=== PATIENT | female | born 1940 | race Caucasian/White ===

== ENCOUNTER → 2019-11-14 12:23 | Outpatient (CLI) | payer MEDICARE, BC, SELFPAY ==
--- NOTE | ~2019-11-14 | XR_ITS ---
XR pelvis 1-2V DATE: 11/14/2019 12:38 INDICATION: Left hip pain for one month. No known injury. TECHNIQUE: AP pelvis views with neutral and frog-lateral position of the hips COMPARISON: 07/07/2018 CT abdomen pelvis FINDINGS: No pelvic fracture or bone destruction. The pubic symphysis and sacroiliac joints are intac t. There are degenerative changes of the lumbar and lumbosacral spine. No hip fracture or dislocation, avascular necrosis or bone destruction is evident. There is extensive calcification of the abdominal aorta, iliac and femoral arteries. Multiple calcifications overlying the pelvis which are demonstrated to be in the subcutaneous tissues posterior to the distal sacrum upon review of the 07/07/2018 CT abdomen pelvis examination. IMPRESSION: No pelvic or hip fracture Reviewed, dictated and finalized at location B. ST'S REPRESENTATIVE IMPRESSION: No pelvic or hip fracture
== END ==
PROVIDERS: PCP Family Medicine; Visit Provider Family Medicine
DX: M25.552 Pain in left hip (principal)
CPT/HCPCS: 72170

== ENCOUNTER 2020-03-31 00:10 | Outpatient (CLI) | payer MEDICARE, BC, SELFPAY ==
[2020-03-31 17:13] LABS: SARS-CoV-2 RNA PCR Negative
== END 2020-03-31 00:11 | disposition home or self-care (01) ==
LOC: ANHCOVIDDT 00:11
PROVIDERS: PCP Family Medicine; Visit Provider Internal Medicine Gastroenterology
DX: Z01.818 Encounter for other preprocedural examination (principal); Z11.59 Encounter for screening for other viral diseases
CPT/HCPCS: 87635; C9803; U0003

== ENCOUNTER 2020-04-02 01:31 | Day surgery (SDC) | payer MEDICARE, BC, SELFPAY ==
[2020-03-25 14:14] VITALS: BMI 23.3
[2020-04-02 09:04] VITALS: BP 151/52; PULSE 67; RESP 18; TEMP 37.4; O2SAT 98
[2020-04-02] MEDS: LACTATED RINGERS 1,000 ML 150 ML IV CONT (09:25)
[2020-04-02 09:29] LABS: Glucose Point of Care 139 (65-105)
--- NOTE | 2020-04-02 09:31 | WPDANESEPPF ---
Anes - Initial Pre Proc Eval Procedure: Operation Date: 04/02/20 10:00 Proposed Procedures p Colonoscopy - Ruiz Raya MD Date/Time: 04/02/20 09:31 Surgeon: Ruiz Raya MD Pre Op Diagnosis: anemia Patient Data Age: 79 Gender: F Height: 1.68 m Weight: 64.5 kg Last Vital Signs Temp 37.4 C 04/02/20 09:04 Pulse 67 04/02/20 09:04 Resp 18 04/02/20 09:04 BP 151/52 H 04/02/20 09:04 Pulse Ox 98 04/02/20 09:04 Allergies Allergy/AdvReac Type Severity Reaction Status Date / Time No Known Allergies Allergy Unknown Verified 04/02/20 09:02 Home Medications Medication Instructions Recorded Confirmed Type aspirin 81 mg tablet,delayed 81 mg PO DAILY 09/11/19 03/25/20 History release dexamethasone 0.1 % eye 1 drop EACH EYE Q4H 09/11/19 03/25/20 History drops,suspension insulin detemir U-100 100 unit/mL 10 unit SUB-Q DAILY ml 09/11/19 03/25/20 History (3 mL) subcutaneous pen latanoprost 0.005 % eye drops 1 drop EACH EYE DAILY 09/11/19 03/25/20 History multivitamin 1 tablet PO DAILY 09/11/19 03/25/20 History losartan 25 mg tablet 25 mg PO DAILY #30 tablet 10/18/19 03/25/20 Rx pen needle, diabetic 32 gauge x #100 each 10/22/19 10/22/19 Rx 1/5 naproxen 500 mg tablet 500 mg PO BID PRN #60 tablet 11/12/19 03/25/20 Rx cholecalciferol (vitamin D3) 1,250 1,250 mcg PO DAILY 12/11/19 03/25/20 History mcg (50,000 unit) capsule omega 3-dha 120 mg-epa 180 mg-fish cap PO 12/11/19 History oil 600 mg capsule omeprazole 20 mg capsule,delayed 20 mg PO DAILY 12/11/19 03/25/20 History release atorvastatin 10 mg tablet 10 mg PO DAILY #30 tablet 01/21/20 03/25/20 Rx escitalopram oxalate 10 mg tablet 10 mg PO DAILY #30 tablet 04/14/20 06/16/20 Rx sitagliptin 50 mg-metformin 1,000 1 tablet PO BID #180 tablet 03/11/20 03/25/20 Rx mg tablet calcium carbonate-vitamin D3 1 tablet PO DAILY 03/25/20 03/25/20 History [Caltrate 600 plus D] Laboratory Tests 04/02/20 09:24 POC Capillary Glucose 139 mg/dl H mg/dl (65-105) Patient hx anesthesia problems: none Family hx anesthesia problems: none [facility] Past Medical History Medical History (Updated 04/01/20 @ 09:11 by Shailesh Dai DO) Glaucoma History of uterine cancer Hypertension Malignant neoplasm of uterus, part unspecified Mixed hyperlipidemia Osteoarthritis Osteoporosis Type 2 diabetes mellitus without complications Surgical History Surgical History (Updated 04/01/20 @ 09:11 by Shailesh Dai DO) History of corneal transplant History of gynecologic surgery History of hysterectomy Social History Social History Smoking status: Never smoker Alcohol intake: current Additional living arrangements comments: - Gurpreet Turk Jostin Stephanie Final PreProcedure Day of Procedure 04/02/20 09:31 Patient weight: normal Heart: regular rate and rhythm Lungs: clear to auscultation and normal air movement Airway: Mallampati scale class II Neurological: alert and oriented Last oral intake: >/= 8 hours ASA classification: III Emergent: no Anesthetic plan: proceed Anesthesia type and monitoring: general GIVS and standard monitoring Informed Consent: The patient's anesthetic plan and its attendant risks and benefits were discussed with the patient/family/POA. Questions were solicited and answers provided to the satisfaction of the patient/family/POA.
--- NOTE | 2020-04-02 09:33 | WPDGICN ---
Assessment and Plan Assessment and plan (1) Anemia: Code(s): D64.9 - Anemia, unspecified Status: Acute Assessment and Plan: Mild anemia noted with sick recent decline in hemoglobin plan is for colonoscopy to assess for possible GI blood loss. Patient does report diarrhea that is blood tinged raising the question of intestinal bleeding. (2) Diarrhea: Code(s): R19.7 - Diarrhea, unspecified Status: Acute Assessment and Plan: Patient has chronic diarrhea attributed to radiation therapy after resection of uterine cancer. Plan is for high-fiber diet. This will be assessed with colonoscopy today. (3) History of uterine cancer: Code(s): Z85.42 - Personal history of malignant neoplasm of other parts of uterus Status: Acute GI Consult Note Consult date/time: 04/02/20 09:33 HPI: Didi Good is a 79 year old female Seen in evaluation at the request of Dr.Gina López. patient is found to have a mild decline in hemoglobin over recent months. For this reason she was referred for colonoscopy. Patient denies any obvious blood in her stools. Her weight appetite bowel movements are normal unchanged. Patient has a history of colon polyps most recently 10 years ago. Her last colonoscopy in 2015 was fairly unremarkable. Patient is notice chronic diarrhea. Diarrhea started after history of uterine cancer. 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 Since that time she has had ongoing diarrhea and loose stools. She states on occasionally it may low appear red tinged. She is concerned about possible blood in her stools. Patient's family history is noncontributory. There is no family history of colon or rectal disease. Review of Systems Review of Systems: All systems reviewed & are unremarkable except as noted in HPI and below PMFSH Past Medical History Medical History Glaucoma History of uterine cancer Hypertension Malignant neoplasm of uterus, part unspecified Mixed hyperlipidemia Osteoarthritis Osteoporosis Type 2 diabetes mellitus without complications Surgical History Surgical History History of corneal transplant History of gynecologic surgery History of hysterectomy Family History Family History Mother Diabetes mellitus, Onset Age: 69 Family history of glaucoma, Onset Age: 69 Hypertension, Onset Age: 69 Family history of elevated blood lipids, Onset Age: 69 Family history of cardiovascular disease, Onset Age: 69 Acute myocardial infarction, Onset Age: 69 Family history of coronary artery disease, Onset Age: 69 Family history of malignant neoplasm of breast in first degree relative Father Depression, Onset Age: 76 Family history of elevated blood lipids, Onset Age: 76 Family history of cardiovascular disease, Onset Age: 76 Acute myocardial infarction, Onset Age: 76 Family history of coronary artery disease, Onset Age: 76 Grandparent Hypertension Family history of cardiovascular disease Cerebrovascular accident Social History Social History Smoking status: Never smoker Alcohol intake: current Additional living arrangements comments: - Gurpreet Sanchez Home Medications and Allergies Home Medications Medication Instructions Recorded Confirmed Type aspirin 81 mg tablet,delayed 81 mg PO DAILY 09/11/19 03/25/20 History release dexamethasone 0.1 % eye 1 drop EACH EYE Q4H 09/11/19 03/25/20 History drops,suspension insulin detemir U-100 100 unit/mL 10 unit SUB-Q DAILY ml 09/11/19 03/25/20 History (3 mL) subcutaneous pen latanoprost 0.005 % eye drops 1 drop EACH EYE DAILY 09/11/19 03/25/20 History multivitamin 1 tablet PO DAILY 09/11/19 03/25/20 Hi
--- NOTE | 2020-04-02 10:14 | SUR.OPER ---
PTS SPOUSE, MARII, NOTIFIED OF PTS STATUS
[2020-04-02 10:31] VITALS: BP 114/60; PULSE 70; RESP 20; O2SAT 100
[2020-04-02 10:41] VITALS: BP 129/63; PULSE 67; RESP 20; O2SAT 100
[2020-04-02 10:48] LABS: Glucose Point of Care 119 (65-105)
[2020-04-02 10:51] VITALS: BP 178/82; PULSE 67; RESP 20; O2SAT 100
== END 2020-04-02 11:14 | disposition home or self-care (01) ==
PROVIDERS: PCP Family Medicine; Visit Provider Internal Medicine Gastroenterology
PROC: 0DJD8ZZ Inspection of Lower Intestinal Tract, Via Natural or Artificial Opening Endoscopic (ICD-10-PCS; CPT 45378; principal; 2020-04-02 10:00)
DX: D64.9 Anemia, unspecified (principal); R19.7 Diarrhea, unspecified; K64.8 Other hemorrhoids; Z85.42 Personal history of malignant neoplasm of other parts of uterus; I10 Essential (primary) hypertension; E78.2 Mixed hyperlipidemia; E11.9 Type 2 diabetes mellitus without complications; M81.0 Age-related osteoporosis without current pathological fracture; H40.9 Unspecified glaucoma; Z79.82 Long term (current) use of aspirin; Z79.4 Long term (current) use of insulin
CPT/HCPCS: 45378; J2704; J7120

== ENCOUNTER 2020-10-04 01:00 | Outpatient (CLI) | payer MEDICARE, BC, SELFPAY ==
[2020-10-04 19:31] LABS: SARS-CoV-2 RNA PCR Negative
== END 2020-10-04 01:01 | disposition home or self-care (01) ==
LOC: ANHCOVIDDT 01:00
PROVIDERS: PCP Family Medicine; Visit Provider Plastic Surgery
DX: Z01.818 Encounter for other preprocedural examination (principal); Z20.828 Contact with and (suspected) exposure to other viral communicable diseases
CPT/HCPCS: 87635; C9803; U0003

== ENCOUNTER 2020-10-08 00:29 | Day surgery (SDC) | payer MEDICARE, BC, SELFPAY ==
[2020-09-30 10:06] VITALS: BMI 22.6
[2020-10-08] VITALS (14 sets, daily range): BP systolic 146–184; BP diastolic 50–96; PULSE 61–71; RESP 16–20; TEMP 36.8; O2SAT 96–100; BMI 22.4
--- NOTE | 2020-10-08 09:27 | WPDHPUPDATE1 ---
History and Physical Update Update Date/Time: 10/08/20 09:27 History and Physical has been reviewed, including an updated exam of the patient. There are NO changes in the patient's condition. Risks, benefits, and alternatives have been discussed and questions answered. Patient agrees to proceed with procedure.
[2020-10-08 11:32] LABS: Glucose Point of Care 170 (65-105)
[2020-10-08] MEDS: LIDO 1%/EPINEPHRINE 1:100,000 50 ML VIAL INFILTRATE (13:11)
--- NOTE | 2020-10-08 13:29 | SUR.OPER ---
specimen given to janina in pathology by ninoska vazquez at [id number]
--- NOTE | 2020-10-08 13:57 | SUR.OPER ---
2nd specimen given to janina in pathology by or pct taylor at [id number].
[2020-10-08] MEDS: BACITRACIN OINTMENT 15 GM TUBE 1 APPLIC TOPICAL (14:29)
--- NOTE | 2020-10-08 14:46 | PM.OP ---
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 Anesthesia: local Surgeon: Walker Yanes MD Estimated blood loss (mL): 2 Drains: No Packing: No Pathology: yes Complications: No immediate complications Condition: stable Disposition: same day
--- NOTE | 2020-10-08 14:48 | PM.PROC ---
Procedure Note - Detailed Date of procedure: 10/08/20 Pre-op diagnosis: Basal Cell Carcinoma Right Upper Scaphoid Fossa Post-op diagnosis: same Procedure performed: 2 cm excision of basal cell carcinoma of the right scaphoid fossa with frozen section x2 and full-thickness skin graft 2 sq cm Description of procedure: The site on the right scaphoid fossa was compared to her preop diagram and patient's recollection. We identified this site and marked it. She was transported to the operating room and placed supine on the operating table. She was made comfortable. The right side of her face, ear and neck were prepped and draped in usual fashion. The site was again carefully examined under loupe magnification and marked for excision. This area was infiltrated 1% lidocaine with epinephrine. The full-thickness skin ellipse was taken from the helix and the peripheral scaphoid fossa. It was marked at the most superior and with a suture for 12:00 o'clock and sent to pathology. Pathologist reported there was positive margin at the 6:00 a.m. and. A 2nd piece of tissue was sent again marked at the new 6:00 a.m. margin along with a diagram. Pathologist reported that margins were free. The skin graft was harvested from the right upper neck. It was carefully defatted and tailored and inset with 5 0 nylon sutures. Quilting suture placed down the middle as well. The donor site was closed with intradermal 4-0 Vicryl and glue at the surface. She is discharged from the operating room stable condition she is being discharged with a prescription for cephalexin 500 mg 15. And tramadol 50 mg 8. Surgeon: Walker Yanes MD
== END 2020-10-08 15:15 | disposition home or self-care (01) ==
PROVIDERS: PCP Family Medicine; Visit Provider Plastic Surgery
PROC: (CPT 11642; principal; 2020-10-08 12:00)
DX: C44.212 Basal cell carcinoma of skin of right ear and external auricular canal (principal)
CPT/HCPCS: 11642; 15260; 88305; 88331; A9270

== ENCOUNTER 2021-05-05 11:26 | Outpatient (CLI) | payer MEDICARE, BC, SELFPAY ==
--- NOTE | ~2021-05-05 | XR_ITS ---
EXAMINATION:XR cervical spine 4-5V DATE: 05/05/2021 11:49 INDICATION: Neck pain TECHNIQUE: AP, lateral, lateral swimmers and odontoid views of the cervical spine are provided. COMPARISON: None FINDINGS: There are 2 mm of anterolisthesis of C4 on C5, 3 mm of anterolisthesis of C5 on C6, and 3 m m of anterolisthesis of C6 on C7. The odontoid is intact. No fracture is identified. The vertebral cheryl dy heights are maintained. There is severe loss of intervertebral disc space height at C5-6. Small de generative osteophytes project from the anterior endplates of multiple vertebral bodies. There is sev ere multilevel facet and uncovertebral joint osteoarthritis throughout the cervical spine. Prevertebr al soft tissues are normal. IMPRESSION: 1. Severe cervical spondylosis. Reviewed, dictated and finalized at location A.
--- NOTE | ~2021-05-05 | XR_ITS ---
EXAMINATION: XR shoulder LT min 2V INDICATION: Chronic left shoulder pain TECHNIQUE: Four views of the left shoulder are submitted. COMPARISON: None FINDINGS: Normal alignment. No fracture. There is moderate osteoarthritis of the acromioclavicular an d glenohumeral joints. Soft tissues are unremarkable. IMPRESSION: 1. Osteoarthritis without acute osseous abnormality. Reviewed, dictated and finalized at location A.
--- NOTE | 2021-05-05 11:55 | ECG_ITS ---
Measurements Intervals [place] Rate: 65 P: 63 CA: 169 QRS: -48 QRSD: 126 T: 80 QT: 423 QTc: 440 Interpretive Statements SINUS RHYTHM LEFT ANTERIOR FASCICULAR BLOCK BORDERLINE ST-T WAVE ABNORMALITY- HIGH LATERAL LEADS BASELINE WANDER- I, III, AVL, AVF ABNORMAL ECG Electronically Signed On 05-05-2021 12:55:32 CDT by German Butt D.O.
== END 2021-05-05 11:27 | disposition home or self-care (01) ==
PROVIDERS: PCP Family Medicine; Visit Provider Family Medicine
DX: F41.9 Anxiety disorder, unspecified (principal); R53.83 Other fatigue; M47.892 Other spondylosis, cervical region; M19.012 Primary osteoarthritis, left shoulder; I44.4 Left anterior fascicular block
CPT/HCPCS: 72050; 73030; 93005

== ENCOUNTER 2021-06-23 02:05 | Day surgery (SDC) | payer MEDICARE, BC, SELFPAY ==
[2021-06-23] VITALS (22 sets, daily range): BP systolic 108–158; BP diastolic 50–79; PULSE 56–71; RESP 12–20; TEMP 36.2–36.7; O2SAT 95–100; BMI 22.0
--- NOTE | 2021-06-23 10:41 | WPDMODSED ---
Moderate Sedation Note-Pt Data Patient Data Allergies Allergy/AdvReac Type Severity Reaction Status Date / Time No Known Allergies Allergy Unknown Verified 06/23/21 09:35 Home Medications Medication Instructions Recorded Confirmed Type aspirin 81 mg tablet,delayed 81 mg PO DAILY 09/11/19 06/23/21 History release dexamethasone 0.1 % eye 1 drop EACH EYE Q4H 09/11/19 06/23/21 History drops,suspension latanoprost 0.005 % eye drops 1 drop EACH EYE DAILY 09/11/19 06/23/21 History multivitamin 1 tablet PO DAILY 09/11/19 06/23/21 History naproxen 500 mg tablet 500 mg PO BID PRN #60 tablet 11/12/19 06/23/21 Rx cholecalciferol (vitamin D3) 1,250 1,250 mcg PO DAILY 12/11/19 06/23/21 History mcg (50,000 unit) capsule omega 3-dha 120 mg-epa 180 mg-fish 1 cap PO QAM 12/11/19 06/23/21 History oil 600 mg capsule omeprazole 20 mg capsule,delayed 20 mg PO DAILY 12/11/19 06/23/21 History release Caltrate 600 plus D 1 tablet PO DAILY 03/25/20 06/23/21 History insulin detemir U-100 100 unit/mL 10 unit SUB-Q DAILY #15 ml 09/08/20 06/23/21 Rx (3 mL) subcutaneous pen pen needle, diabetic 32 gauge x See Rx Instructions .ROUTE 11/27/20 06/23/21 Rx 1/5 .COMPLEX #100 ea escitalopram oxalate 20 mg tablet 20 mg PO DAILY #90 tablet 12/09/20 06/23/21 Rx hydrochlorothiazide 12.5 mg tablet See Rx Instructions .ROUTE 12/31/20 06/23/21 Rx .COMPLEX #90 tablet losartan 25 mg tablet See Rx Instructions .ROUTE BID 01/23/21 06/23/21 Rx #180 tablet blood sugar diagnostic #100 ea 03/17/21 06/23/21 Rx sitagliptin 50 mg-metformin 1,000 See Rx Instructions .ROUTE 04/21/21 06/23/21 Rx mg tablet .COMPLEX #180 tablet cyclobenzaprine 5 mg tablet 5 mg PO TID PRN #30 tablet 05/01/21 06/23/21 Rx ferrous sulfate 325 mg (65 mg 325 mg PO DAILY #90 tablet 05/07/21 06/23/21 Rx iron) tablet atorvastatin 10 mg PO DAILY 06/23/21 06/23/21 History metoprolol tartrate 12.5 mg PO BID 06/23/21 06/23/21 History nitroglycerin 0.4 mg SUBLINGUAL PRN PRN 06/23/21 06/23/21 History Current Medications: Active Medications Sodium Chloride (Normal Saline Iv) 500 mls @ 100 mls/hr IV CONT .Q5H LILY Sedation/Anesthesia: No previous sedation/anesthesia problems (including family history). [facility] Past Medical History Medical History (Updated 05/07/21 @ 14:10 by Cecilia López DO) Glaucoma History of uterine cancer Hypertension Malignant neoplasm of uterus, part unspecified Mixed hyperlipidemia Osteoarthritis Osteoporosis Type 2 diabetes mellitus without complications Surgical History Surgical History History of corneal transplant History of gynecologic surgery History of hysterectomy Family History Family History Mother Diabetes mellitus, Onset Age: 69 Family history of glaucoma, Onset Age: 69 Hypertension, Onset Age: 69 Family history of elevated blood lipids, Onset Age: 69 Family history of cardiovascular disease, Onset Age: 69 Acute myocardial infarction, Onset Age: 69 Family history of coronary artery disease, Onset Age: 69 Family history of malignant neoplasm of breast in first degree relative Father Depression, Onset Age: 76 Family history of elevated blood lipids, Onset Age: 76 Family history of cardiovascular disease, Onset Age: 76 Acute myocardial infarction, Onset Age: 76 Family history of coronary artery disease, Onset Age: 76 Grandparent Hypertension Family history of cardiovascular disease Cerebrovascular accident Social History Social History Second hand tobacco smoke exposure: No Alcohol intake: current Drinks per week: 5 Alcohol use details: Moderate Substance use: never Substance use type: does not use Additional living arrangements comments: - Gurpreet James Gender identity (if verbalized by the pa
--- NOTE | 2021-06-23 10:42 | WPDHPUPDATE1 ---
History and Physical Update Update Date/Time: 06/23/21 10:42 History and Physical has been reviewed, including an updated exam of the patient. There are NO changes in the patient's condition. Risks, benefits, and alternatives have been discussed and questions answered. Patient agrees to proceed with procedure.
--- NOTE | 2021-06-23 11:33 | WPDCARDPROC ---
Cardiac Cath Procedure Note Date of procedure:: 06/23/21 Performing physician:: Donte Leonard MD Procedure Procedure note:: CARDIAC CATHETERIZATION AND PERCUTANEOUS CORONARY INTERVENTION REPORT DATE OF PROCEDURE: 06/23/2021 INDICATION FOR PROCEDURE: Chest pressure, abnormal stress test BRIEF CLINICAL HISTORY: 80-year-old female with hypertension, type 2 diabetes mellitus, dyslipidemia. Patient has been experiencing symptoms of worsening shortness of breath and episodes of chest pressure, associated with dizziness and generalized fatigue. Her EKG showed sinus rhythm, nonspecific ST-T abnormalities. She had Exercise MPI done on 06/10/2021. Her EKG portion of the stress test was positive for ischemia with exercise induced chest pain; frequent exercise induced PVCs. Perfusion scan was negative for ischemia with normal LVEF. Due to patient's ongoing symptoms and positive EKG portion of the stress test with exercise induced chest pain, coronary angiogram was recommended to rule out significant obstructive CAD. Benefits and risks of the procedure were discussed with the patient in depth, and informed consent was obtained prior to the procedure. Risks of the procedure include but are not limited to vascular complications including groin hematoma, retroperitoneal bleed, vessel perforation; periprocedural MN, cardiac arrhythmias, stroke, contrast induced nephropathy, and . After discussing all the benefits, risks and alternatives, patient was willing to proceed with the procedure. PROCEDURES PERFORMED: 1. Left heart catheterization- Selective left and right coronary angiogram; left ventriculogram and hemodynamic assessment 2. Percutaneous coronary intervention- INTRAVASCULAR ULTRASOUND (IVUS) OF PROXIMAL LEFT CIRCUMFLEX ARTERY 3. Moderate sedation-CPT code 11084 MODERATE SEDATION: Midazolam 1 mg; fentanyl 25 mcg. Start time 1055 , Stop time 1127 ; Total [id number]-wy-[id number] time 32 minutes; Bryn Li RN was trained observer for moderate sedation. ACCESS SITE: Right common femoral artery PROCEDURE NOTE: After obtaining informed consent, patient was brought to catheterization lab and prepped and draped in a usual sterile manner. After local anesthesia with lidocaine, right common femoral artery access was taken with micropuncture needle followed by insertion of a 5 [place]ian sheath. Selective left and right coronary angiogram was performed using 5 [place]ian JL4 and JR4 catheters respectively. Orthogonal views were taken. Next, a 5 [place]ian pigtail catheter was advanced in the LV cavity and was flushed with normal saline. LV pressure measurement was performed. After this, left ventriculogram was performed. The catheter was flushed again, and gradient across the aortic valve was measured on the pullback of the catheter. The angiographic and IVUS findings are described below. FINDINGS: LEFT MAIN CORONARY: The left main coronary artery is a medium caliber vessel with minimal narrowing in the distal segment before it bifurcates into LAD and left circumflex branches. LEFT ANTERIOR DESCENDING ARTERY: The LAD is a medium caliber vessel in the proximal and mid segment, tapers distally and becomes a diminutive vessel near LV apex. No significant focal stenosis seen. Diagonal branch is a small caliber vessel. LEFT CIRCUMFLEX ARTERY: The left circumflex artery is a large caliber vessel with diffuse calcific 50-60% stenosis in the proximal segment. There is calcific, eccentric, somewhat poorly defined 60-70% stenosis in the mid segment before vessel gives rise to OM branches. OM1 branch is a medium to large caliber vessel without significant focal stenosis. OM2 branch is a smaller caliber, tortuous vessel without significant focal stenosis. RIGHT CORONARY ARTERY: The right coronary artery is a medium caliber vessel with 50-70% stenosis at the ostium, which appears worse in the [place] 7, cranial 10 projection. The remainder of the vessel is without signi
--- NOTE | 2021-06-23 17:37 | SUR.PHASEII ---
Namita PAULINO reviewed discharge instructions and follow up appointment/procedure at [facility] with patient before transporting patient to [facility] for continued care until discharge tonight.
== END 2021-06-23 21:15 | disposition home or self-care (01) ==
PROVIDERS: PCP Family Medicine; Visit Provider Internal Medicine Cardiovascular Disease
PROC: 4A023N7 Measurement of Cardiac Sampling and Pressure, Left Heart, Percutaneous Approach (ICD-10-PCS; CPT 93452; principal; 2021-06-23 10:00)
DX: I25.10 Atherosclerotic heart disease of native coronary artery without angina pectoris (principal); R94.39 Abnormal result of other cardiovascular function study; R07.9 Chest pain, unspecified; I10 Essential (primary) hypertension; E78.2 Mixed hyperlipidemia; E11.9 Type 2 diabetes mellitus without complications; H40.9 Unspecified glaucoma; Z79.82 Long term (current) use of aspirin; Z79.4 Long term (current) use of insulin; Z79.84 Long term (current) use of oral hypoglycemic drugs; M81.0 Age-related osteoporosis without current pathological fracture; Z85.42 Personal history of malignant neoplasm of other parts of uterus
CPT/HCPCS: 92978; 93458; C1753; C1769; C1887; C1894; J0583; J1644; J2250; J3010; J7040

== ENCOUNTER 2021-10-22 13:30 | Outpatient (RCR) | payer MEDICARE, BC, SELFPAY ==
[2021-08-17 14:33] LABS: Glucose Point of Care 133 mg/dl (65-105)
--- NOTE | 2021-09-02 11:41 | PCCPR ---
Absent-not feeling well and is having diarrhea.
[2021-09-24 14:22] LABS: Glucose Point of Care 134 mg/dl (65-105)
== END 2021-10-22 19:30 | disposition home or self-care (01) ==
LOC: ANHCPREHAB 13:30
PROVIDERS: PCP Family Medicine; Visit Provider Internal Medicine Cardiovascular Disease
DX: Z95.5 Presence of coronary angioplasty implant and graft (principal)
CPT/HCPCS: 93798

== ENCOUNTER → 2022-09-27 12:41 | Outpatient (CLI) | payer MEDICARE, BC, SELFPAY ==
--- NOTE | ~2022-09-27 | US_ITS ---
EXAMINATION: US soft tissue LE DATE: 09/27/2022 13:07 INDICATION: Palpable lump at the medial aspect of the distal left thigh TECHNIQUE: Multiple grayscale and Doppler ultrasound images of the region of concern at the just abov e the knee at the medial distal left thigh were obtained. COMPARISON: None FINDINGS: Small ill-defined region of subtly relatively increased echogenicity of the superficial subcutaneous fat at the region of concern which measures approximately 1.5 cm in diameter and 6 mm in thickness. N o evident surrounding capsular clearly demarcated margins to suggest lipoma or other neoplasm in this most likely inflammatory in etiology. No other abnormal masses or fluid collections identified. IMPRESSION: 1. Nonspecific small ill-defined region of subtly increased echogenicity of the superficial subcutane ous fat at the region of concern most likely inflammatory in etiology. Reviewed, dictated and finalized at location B. START TEACHER IMPRESSION: 1. Nonspecific small ill-defined region of subtly increased echogenicity of the superficial subcutaneous fat at the region of concern most likely inflammatory in etiology.
== END ==
PROVIDERS: PCP Family Medicine; Visit Provider Family Medicine
DX: M70.72 Other bursitis of hip, left hip (principal)
CPT/HCPCS: 76882

== ENCOUNTER 2023-09-17 21:52 | Emergency (ER) | payer MEDICARE, BC, SELFPAY ==
--- NOTE | ~2023-09-17 | CT_ITS ---
EXAMINATION: CT cervical spine wo con DATE: 09/18/2023 00:58 INDICATION: Head injury TECHNIQUE: Computed tomography (CT) of the cervical spine was performed without intravenous contrast. The dose-length product (DLP) was 143.54 mGy-cm. Automated exposure control and iterative reconstruc tion technique were employed. COMPARISON: 05/05/2021 FINDINGS: There are 2 mm of anterolisthesis of C4 on C5 and C6 on C7 and 2 mm of retrolisthesis of C5 on C6. There is unchanged severe loss of intervertebral disc space height at C5-6. The odontoid proc ess is intact. The vertebral body heights are normal. There is no fracture. There is multilevel sever e facet and uncovertebral joint osteoarthritis. IMPRESSION: 1. Severe cervical spondylosis without acute findings or significant interval change. Reviewed, dictated and finalized at location F. ENGINEER IMPRESSION: 1. Severe cervical spondylosis without acute findings or significant interval c wilder.
--- NOTE | ~2023-09-17 | CT_ITS ---
EXAMINATION: CT brain wo con INDICATION: Head injury COMPARISON: None TECHNIQUE: Standard unenhanced head CT. The dose-length product (DLP) was 605.33 mGy-cm. The mA was a djusted according to patient size. Iterative reconstruction technique was employed. FINDINGS: There is a large left parietal scalp hematoma. No acute intraparenchymal hemorrhage. No amandeep dence of mass lesion. No evidence of acute infarction. There is mild periventricular and subcortical hypodensity probably related to small vessel ischemic disease. There is mild prominence of the sulci and ventricles related to cerebral atrophy. Intracranial calcified cerebral atherosclerosis is noted. No extra-axial collections. No mass effect or midline shift. Changes in the globes are likely from o cular lens surgery. The visualized sinuses and mastoid air cells are well aerated. IMPRESSION: 1. Large left parietal scalp hematoma without acute intracranial abnormality. 2. Age related findings. Reviewed, dictated and finalized at location F. MARSHAL
[2023-09-17 21:56] VITALS: BP 184/64; PULSE 63; RESP 18; TEMP 36.8; O2SAT 100
--- NOTE | 2023-09-18 00:26 | ECG_ITS ---
Measurements Intervals [place] Rate: 64 P: -5 OR: 146 QRS: -31 QRSD: 113 T: 120 QT: 396 QTc: 409 Interpretive Statements SINUS RHYTHM LEFTWARD AXIS ANTEROSEPTAL MYOCARDIAL INFARCTION , PROBABLY OLD T-WAVE ABNORMALITY, CONSIDER ISCHEMIA Electronically Signed On 09-18-2023 10:29:57 SIGHT EFFECTS SPECIALIST by Donte Leonard M.D.
[2023-09-18] MEDS: ACETAMINOPHEN 500 MG TABLET 1000 MG PO (00:35)
[2023-09-18 00:44] VITALS: BP 141/73; PULSE 64; RESP 17; O2SAT 100
[2023-09-18 00:50] LABS: Basophils Percent Auto 0.5 % (0.2-1.2); Eosinophils Absolute Auto 0.1 K/mm3 (0-0.3); Eosinophils Percent Auto 1.5 % (0-4.4); Hematocrit 35.7 % (37.0-47.0); Hemoglobin 11.6 g/dL (12.0-15.0); Immature Granulocyte Absolute 0.01 K/mm3 (0.00-0.031); Immature Granulocyte Percent A 0.2 % (0-0.5); Lymphocytes Absolute Auto 1.12 K/mm3 (0.9-3.2); Mean Corpuscular HGB Conc 32.5 g/dl (32-36); Mean Corpuscular Hemoglobin 34.7 pg (26-34); Mean Corpuscular Volume 106.9 fl (80-100); Mean Platelet Volume 9.2 fl (7.4-10.4); Monocytes Absolute Auto 0.6 K/mm3 (0.1-0.6); Monocytes Percent Auto 8.4 % (2.6-8.5); Neutrophils Absolute Auto 4.8 K/mm3 (1.3-6.7); Neutrophils Percent Auto 72.4 % (45.5-73.1); Platelet Count Result 176 k/mm3 (150-375); Red Blood Count 3.34 M/mm3 (4.2-5.4); Red Cell Distribution Width 13.3 % (11.5-14.5); White Blood Count 6.6 K/mm3 (4.5-10.0)
[2023-09-18 00:54] LABS: Appearance Urine Cloudy (Clear); Bacteria Urine 4+ /hpf; Bilirubin Urine Negative (Negative); Blood Urine 1+ (Negative); Color Urine Yellow (Yellow); Glucose Urine UA 3+ mg/dL (Negative); Ketones Urine Negative (Negative); Leukocyte Esterase Ur Trace LEU/UL (Negative); Nitrate Urine Positive (Negative); Non Pathogenic Casts 0-2; Protein Urine Negative (Negative); RBC Urine 0-2 /hpf (0-2); Specific Grav Ur 1.018 (1.001-1.035); Squamous Epithelial Cell Urine Occasional /hpf (Few); Urobilinogen Urine 0.2 mg/dL (<2.0); pH Urine 5.5 (5.0-9.0)
[2023-09-18 00:59] LABS: Alanine Aminotransferase 23 U/L (6-35); Alkaline Phosphatase 75 U/L (38-126); Anion Gap 7 mmol/L (8-16); Aspartate Amino Transferase 31 U/L (14-36); Blood Urea Nitrogen 24 mg/dL (7-17); Carbon Dioxide 26 mmol/L (22-30); Chloride 102 mmol/L (98-107); Estimated CRCL calculation 32 ml/min; Estimated Glomerular Filt Rate 48; Glucose 153 mg/dL (65-110); Potassium 4.4 mmol/L (3.4-5.0); Sodium 135 mmol/L (137-145)
[2023-09-18 01:01] LABS: Partial Thromboplastin Time 28.8 SECONDS (22.3-36.8)
[2023-09-18 01:07] LABS: Add Urine Microscopic? YES
[2023-09-18 01:20] LABS: Anisocytosis 1+ (NORMAL); Platelet Clumps Present; Platelet Estimate Adequate (Adequate)
[2023-09-18 01:21] LABS: Schistocytes None Seen (NORMAL)
--- NOTE | 2023-09-18 01:36 | ED.GENADULT ---
HPI - General Adult General Chief complaint: Fall Stated complaint: GLF, head injury Time Seen by Provider: 09/18/23 00:05 History of Present Illness HPI narrative: This is an 82-year-old female on Plavix presenting ED after a fall. Patient was walking her dog when she fell over backwards and struck the back of her head. She had a large hematoma. No loss of consciousness, no persistent vomiting, no visual changes or neurologic deficits. Patient does have some pain to the left side of her neck. No other injuries. Patient says she is prone to UTIs. Related Data Home Medications Medication Instructions Recorded Confirmed dexamethasone 0.1 % eye 1 drop ophthalmic (eye) Q4H 09/11/19 07/12/23 drops,suspension latanoprost 0.005 % eye drops 1 drop ophthalmic (eye) HS 09/11/19 07/12/23 omega 3-dha 120 mg-epa 180 mg-fish 1 cap PO QAM 12/11/19 07/12/23 oil 600 mg capsule (Extreme [place]-3) omeprazole 20 mg capsule,delayed 20 mg PO DAILY 12/11/19 07/12/23 release metoprolol tartrate 25 mg tablet 12.5 mg PO BID 06/23/21 07/12/23 nitroglycerin 0.4 mg sublingual 0.4 mg sublingual PRN PRN Chest 06/23/21 07/12/23 tablet Pain aspirin 81 mg tablet,delayed 162 mg PO BID 07/23/21 07/12/23 release ferrous fumarate-vit C-vit B12 1 cap DAILY 07/31/21 07/12/23 lancets 28 gauge (FreeStyle 03/15/22 07/12/23 Lancets) calcium 600 mg-D3 800 unit-mag11 1 tablet PO DAILY 11/25/22 07/12/23 50 dy-shlc-kpepdd-chico-s.borat tablet (Caltrate 600-D Plus Minerals) cholecalciferol (vitamin D3) 25 25 mcg PO DAILY 11/25/22 07/12/23 mcg (1,000 unit) capsule cyanocobalamin (vitamin B-12) 1,000 mcg PO DAILY 11/25/22 07/12/23 1,000 mcg tablet (Vitamin B-12) cuhujrqx-ugke-ggam 8 mg-folic 400 1 tablet PO DAILY 11/25/22 07/12/23 mcg-K 50 mcg-lutein 300 mcg tablet (Centrum Silver Women) vit C 250 mg-vit E 90 mg-zinc 40 1 tablet PO BID 11/25/22 07/12/23 mg-copper 1 oc-mvmyxn-yfsxvs capsule (PreserVision AREDS-2) sitagliptin phosphate 50 1 tablet PO DAILY 07/12/23 07/12/23 mg-metformin 1,000 mg tablet Allergies Allergy/AdvReac Type Severity Reaction Status Date / Time No Known Allergies Allergy Unknown Verified 09/18/23 00:20 [facility] Past Medical History Medical History Glaucoma History of uterine cancer Hypertension Malignant neoplasm of uterus, part unspecified Malignant neoplasm of vagina Mixed hyperlipidemia Osteoarthritis Osteoporosis Type 2 diabetes mellitus without complications Surgical History Surgical History History of corneal transplant History of gynecologic surgery History of hysterectomy Family History Family History Mother Diabetes mellitus, Onset Age: 69 Family history of glaucoma, Onset Age: 69 Hypertension, Onset Age: 69 Family history of elevated blood lipids, Onset Age: 69 Family history of cardiovascular disease, Onset Age: 69 Acute myocardial infarction, Onset Age: 69 Family history of coronary artery disease, Onset Age: 69 Family history of malignant neoplasm of breast in first degree relative Father Depression, Onset Age: 76 Family history of elevated blood lipids, Onset Age: 76 Family history of cardiovascular disease, Onset Age: 76 Acute myocardial infarction, Onset Age: 76 Family history of coronary artery disease, Onset Age: 76 Grandparent Hypertension Family history of cardiovascular disease Cerebrovascular accident Social History Social History Smoking status: Never smoker Second hand tobacco smoke exposure: No Alcohol intake: current Drinks per week: 5 Alcohol use details: Moderate Substance use: never Substance use type: does not use Lack of Transportation: No Lack of Food: Never True Current Housing:
[2023-09-18 03:40] VITALS: BP 134/63; PULSE 58; RESP 17; O2SAT 99
== END 2023-09-18 03:50 | disposition home or self-care (01) ==
PROVIDERS: Emergency Provider Emergency Medicine; PCP Family Medicine
DX: S00.03XA Contusion of scalp, initial encounter (principal); N39.0 Urinary tract infection, site not specified; I10 Essential (primary) hypertension; E78.2 Mixed hyperlipidemia; E11.9 Type 2 diabetes mellitus without complications; Z85.42 Personal history of malignant neoplasm of other parts of uterus; W01.0XXA Fall on same level from slipping, tripping and stumbling without subsequent striking against object, initial encounter
CPT/HCPCS: 36415; 70450; 72125; 80053; 81001; 85025; 85610; 85730; 87077; 87086; 87186; 93005; 99284; A9270

== ENCOUNTER 2023-09-27 16:25 | Outpatient (CLI) | payer MEDICARE, BC, SELFPAY ==
--- NOTE | ~2023-09-27 | CT_ITS ---
EXAMINATION: CT brain wo con DATE: 09/27/2023 16:48 INDICATION: Unspecified injury of head, initial encounter. TECHNIQUE: Computed tomography (CT) of the head was performed without intravenous contrast. The mA wa s adjusted according to patient size. Iterative reconstruction technique was employed. The dose-lengt h product was 605.33 mGy-cm. COMPARISON: head CT 09/18/23 FINDINGS: There is no intracranial hemorrhage, acute infarction, or abnormal intracranial mass lesion . There are scattered areas of low attenuation in the cerebral white matter, which is within normal l imits for the patient's age. The ventricles are normal in size. There are likely changes of ocular le ns replacement surgeries. There is mild mucosal thickening in the ethmoid sinuses. The mastoid air ce lls are normal. There is a left posterior scalp hematoma.. IMPRESSION: 1. Normal aging brain. Reviewed, dictated and finalized at location E. UTER GAME TESTER IMPRESSION: 1. Normal aging brain.
== END 2023-09-27 16:26 | disposition home or self-care (01) ==
PROVIDERS: PCP Family Medicine; Visit Provider Nurse Practitioner
DX: S09.90XA Unspecified injury of head, initial encounter (principal); X58.XXXA Exposure to other specified factors, initial encounter
CPT/HCPCS: 70450

== ENCOUNTER 2023-10-06 13:42 | Emergency (ER) | payer MEDICARE, BC, SELFPAY ==
--- NOTE | 2023-10-06 13:46 | ED.FEMALEGU ---
HPI - Female Genitourinary General Chief complaint: Urogenital-Female Stated complaint: UTI Time Seen by Provider: 10/06/23 14:52 Source: patient, RN notes reviewed and old records reviewed Mode of arrival: ambulatory Limitations: no limitations History of Present Illness HPI Narrative: 82-year-old female presents to the [facility] with concerns for a UTI. Patient states since Tuesday or Tuesday to 2 days has had frequency burning pain with urination. Denies any abdominal pain nausea or fevers. Has a history of UTIs Related Data Home Medications Medication Instructions Recorded Confirmed dexamethasone 0.1 % eye 1 drop ophthalmic (eye) Q4H 09/11/19 10/06/23 drops,suspension latanoprost 0.005 % eye drops 1 drop ophthalmic (eye) HS 09/11/19 10/06/23 omega 3-dha 120 mg-epa 180 mg-fish 1 cap PO QAM 12/11/19 10/06/23 oil 600 mg capsule (Extreme [place]-3) omeprazole 20 mg capsule,delayed 20 mg PO DAILY 12/11/19 10/06/23 release nitroglycerin 0.4 mg sublingual 0.4 mg sublingual PRN PRN Chest 06/23/21 10/06/23 tablet Pain ferrous fumarate-vit C-vit B12 1 cap DAILY 07/31/21 10/06/23 lancets 28 gauge (FreeStyle 03/15/22 09/22/23 Lancets) calcium 600 mg-D3 800 unit-mag11 1 tablet PO DAILY 11/25/22 10/06/23 50 ud-cdgu-yiukxv-chico-s.borat tablet (Caltrate 600-D Plus Minerals) cholecalciferol (vitamin D3) 25 25 mcg PO DAILY 11/25/22 10/06/23 mcg (1,000 unit) capsule cyanocobalamin (vitamin B-12) 1,000 mcg PO BID 11/25/22 10/06/23 1,000 mcg tablet (Vitamin B-12) pojvglet-bbue-iwct 8 mg-folic 400 1 tablet PO DAILY 11/25/22 10/06/23 mcg-K 50 mcg-lutein 300 mcg tablet (Centrum Silver Women) vit C 250 mg-vit E 90 mg-zinc 40 1 tablet PO BID 11/25/22 10/06/23 mg-copper 1 cl-ryjrtd-bkwdde capsule (PreserVision AREDS-2) acyclovir 800 mg tablet 800 mg PO BID 10/06/23 10/06/23 atorvastatin 10 mg tablet 10 mg PO DAILY 10/06/23 10/06/23 Allergies Allergy/AdvReac Type Severity Reaction Status Date / Time No Known Allergies Allergy Unknown Verified 10/06/23 14:07 Review of Systems Review of Systems: All systems reviewed & are unremarkable except as noted in HPI and below Constitutional: Constitutional: Reports no additional constitutional complaints Eyes: Eyes: Reports no additional eye complaints ENT: Reports system reviewed and no additional complaints, except as documented Cardiovascular: Cardiovascular: Reports no additional cardiovascular complaints, Denies chest pain and Denies dyspnea Respiratory: Respiratory: Reports no additional respiratory complaints, Denies chest congestion, Denies cough and Denies dyspnea Gastrointestinal: Gastrointestinal: Reports no additional gastrointestinal complaints, Denies abdominal pain, Denies nausea and Denies vomiting Genitourinary: Genitourinary: Reports as per HPI Musculoskeletal: Musculoskeletal: Reports no additional musculoskeletal complaints Integumentary/Breasts: Skin/Breast: Reports system reviewed and no additional complaints, except as docu Neurologic: Reports system reviewed and no additional complaints, except as documented Psychiatric: Psychiatric: Reports no additional psychiatric complaints Allergic/Immunologic: Allergic/Immunologic: Reports no additional allergic/immunologic complaints [facility] Past Medical History Medical History Glaucoma History of uterine cancer Hypertension Malignant neoplasm of uterus, part unspecified Malignant neoplasm of vagina Mixed hyperlipidemia Osteoarthritis Osteoporosis Type 2 diabetes mellitus without complications Surgical History Surgical History History of corneal transplant History of gynecologic surgery History of hysterectomy Family History Family History Mother Diabetes mellitus, Onset Age: 69 Family history of glaucoma
[2023-10-06 13:49] VITALS: BP 131/53; PULSE 68; RESP 18; TEMP 37.2; O2SAT 100
[2023-10-06 14:58] LABS: Glucose Point of Care 180 mg/dl (65-105)
== END 2023-10-06 15:13 | disposition home or self-care (01) ==
PROVIDERS: Emergency Provider Nurse Practitioner; PCP Family Medicine
DX: N39.0 Urinary tract infection, site not specified (principal); I10 Essential (primary) hypertension; E11.9 Type 2 diabetes mellitus without complications; E78.2 Mixed hyperlipidemia; Z79.899 Other long term (current) drug therapy; Z85.42 Personal history of malignant neoplasm of other parts of uterus
CPT/HCPCS: 81003; 82948; 87077; 87086; 87186; 99213; G0463

== ENCOUNTER 2024-09-18 15:44 | Outpatient (CLI) | payer MEDICARE, BC, SELFPAY ==
--- NOTE | ~2024-09-18 | MM_ITS ---
EXAMINATION: MM screening melisa BI w nakia HISTORY: Screening TECHNIQUE: Craniocaudal and mediolateral oblique 3-D tomosynthesis images were obtained and synthetic 2-D images were generated. CAD analysis was submitted and interpreted. COMPARISON: No prior mammogram is available for comparison at this institution. Comparison to multipl e prior studies sequentially, with oldest reviewed study dated 12/25/2020. BREAST PARENCHYMAL COMPOSITION: Dense: The breasts are heterogeneously dense, which may obscure small masses FINDINGS: There is no evidence of suspicious mass, calcification, or architectural distortion to sugg est malignancy in either breast. There has been no suspicious interval change. IMPRESSION: 1. No mammographic evidence of malignancy. 2. Recommend routine screening mammography in one year. BI-RADS Category 1: Negative Reviewed, dictated and finalized at location B. HASING CLERK
== END 2024-09-18 15:45 | disposition home or self-care (01) ==
LOC: ANHIMG 15:45
PROVIDERS: PCP Family Medicine; Visit Provider Family Medicine
DX: Z12.31 Encounter for screening mammogram for malignant neoplasm of breast (principal)
CPT/HCPCS: 77063; 77067

== ENCOUNTER 2024-11-06 13:52 | Outpatient (CLI) | payer MEDICARE, BC, SELFPAY ==
--- NOTE | ~2024-11-06 | DEXA_ITS ---
Bone Density Report Name: YESSICA OCASIO Age: 83 Sex: Female Ethnicity: White Date of : 1940 Indication: postmenopausal; screening for osteoporosis; height loss; history of glucocorticoids; cancer; hysterectomy; Referring Provider: ERIKA OBRIEN Study: Bone densitometry was performed. Exam Date: November 06, 2024 Accession number: [id number] Bone Density: Region BMD T-score Z-score Classification AP Spine(L1-L4) 1.075 0.3 3.1 Normal Femoral Neck (Left) 0.661 -1.7 0.8 Osteopenia Total Hip (Left) 0.905 -0.3 2.0 Normal Femoral Neck (Right) 0.664 -1.7 0.8 Osteopenia Total Hip (Right) 0.857 -0.7 1.6 Normal Total Hip Mean 0.881 -0.5 1.8 Normal World Health Organization criteria for BMD impression classify patients as: Normal (T-score at or above -1.0), Osteopenia (T-score between -1.0 and -2.5), or Osteoporosis (T-score at or below -2.5). 10-year Fracture Risk(1): Major Osteoporotic Fracture 18% Hip Fracture 5.9% Reported Risk Factors: [place] (), Neck BMD=0.661, BMI=20.9, glucocorticoids (1) FRAX(R) Version 3.08. Fracture probability calculated for an untreated patient. Fracture probability may be lower if the patient has received treatment. Clinical Information Provided by Patient: Has taken Glucocorticoids Is being treated for osteoporosis Has used the following medications: Fosamax (i.e. alendronate), HRT (i.e. estrogen/hormone therapy), Vitamin D, Calcium Has the following medical conditions: Cancer, Hysterectomy Patient maximum height was 96 Menopause Age: 50 Drinks caffeinated beverages Onset of menses at age 11 Number of children 3 Impression: The patient has low bone mass, based on the Left Femoral Neck T-score. The patient has an estimated ten-year risk of hip fracture of 5.9% and an estimated ten-year risk of major fracture of 18%, based on the WHO FRAX algorithm. The patient has risk factors, including: history of glucocorticoid therapy. Discussion: It is important to ask patients whether they are taking their medications and to encourage continued and appropriate compliance with their osteoporosis therapies to reduce fracture risk. It is also important to review their risk factors and encourage appropriate calcium and vitamin D intakes, exercise, fall prevention and other lifestyle measures. Follow-Up: Consider a repeat BMD and Vertebral Fracture Assessment (VFA) exam in 2 years or sooner if medically necessary, to reassess this patient's status. Reported by: KHADIJAH on 11/06/2024 2:51:00 PM. Reviewed, dictated and finalized at location [facility]
--- OUTSIDE RECORDS SUMMARY | 2024-11-06 14:31 | XMS_ITS | Encounter Summary ---
Author Organization [facility] Address 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 Doc Garland MD [address] [facility] [address] [place], [place] [id number] Other and Unspecified Angina Pectoris Social History Tobacco Use Types Packs/Day Years Used Date Smoking Tobacco: Never Assessed Comments Unknown Sex and Gender Information Value Date Recorded Sex Assigned at Not on file 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 [address] [email or web address] Cardiac Catheterization Comprehensive Report Patient: ?Didi Good Study ID: ? [id number] Gender: ? F : ?1940 Age: ?67 years Race: Room: Bed: Height: ? 66 in ( 167.6 cm ) Study Date: ? May 14, 2008 Patient status: Outpatient Weight: ? 152.9 lb ( 69.5 kg ) Access. #: ?[id number] POC: Attending MD: ?? Catherine Performing MD: ??Catherine Indications and History: INDICATIONS: Atypical anginal pain. PRIOR DIAGNOSTIC TEST RESULTS: Previous exercise nuclear stress test performed on April 25, 2008 was positive. Procedure(s) Performed: DIAGNOSTIC PROCEDURES: Left heart catheterization. Left ventriculography. Selective coronary angiography. Study Conclusions: SUMMARY - ??Global left ventricular function was normal. EF estimated by contrast ventriculography was 60 %. - ??Coronary angiography demonstrated minor luminal irregularities. RECOMMENDATIONS There is no evidence of obstruction to explain the reported symptoms; the stress test appears to be a false positive. The patient's chest discomfort does not appear due to obstructive coronary artery disease. The etiology of the patient's discomfort is still not clear. The patient may resume all previous activities in 2 days. Following bedrest and subsequent ambulation, the patient will be discharged if feeling well. The patient has been instructed to follow-up with you (the referring physician) in the near future. COMPLICATIONS: There were no complications. Description of Procedure: BACKGROUND INFORMATION: The procedures, together with their attendant risks and alternatives, and conscious sedation were explained to the patient and informed consent was obtained. Contrast ( Optiray, 100 ml ) was administered during the procedure. The patient was given 50.000 mL (IV) IV Solutions. The patient was given 3.000 l/min OXYGEN. The patient was given 2.000 mg VERSED (IVP). NARRATIVE: - ??Right femoral artery access. Cardiac structures: VENTRICULOGRAPHY: There were no left ventricular regional wall motion abnormalities. Global left ventricular function was normal. EF estimated by contrast ventriculography was 60 %. Coronary and graft angiography: LEFT MAIN CORONARY ARTERY: Left main: The vessel was normal-sized and mildly calcified. Angiography showed no evidence of disease. LEFT ANTERIOR DESCENDING AND BRANCHES: LAD: The vessel was normal-sized and mildly calcified. Angiography showed minor luminal irregularities. LEFT CIRCUMFLEX AND BRANCHES: Circumflex: The vessel was normal-sized and mildly calcified. Angiography showed minor luminal irregularities. RIGHT CORONARY AND BRANCHES: RCA: The vessel was large (dominant). Angiography showed minor luminal irregularities. IMPRESSIONS: Coronary angiography demonstrated minor luminal irregularities. Condition1: --- ??Pressure mmHg ? Rate ?dPdt AO ?? 134-S/ 57-D, 87-M ?? 64 BPM LV ?? 140-S/ 5-BD, 12-ED ??60 BPM ??1860 AOp ??138-S/ 58-D, 90-M ?? 63 BPM PBa ??129-S/ 54-D, 85-M ?? 67 BPM PBv ??137-S/ 4-BD, 13-ED ??64 BPM ??1700 Prepared and Electronically Authenticated Doc Garland MD Confirmed May 14, 2008 15:37:28 Procedure Note Provider, Historical - 05/14/2008 [facility] [address] [place] [address] [email or web address] Cardiac Catheterization Comprehensive Report Patient: Didi Good Study ID: [id number] Gender: F : 1940 Age: 67 years Race: Room: Bed: Height: 66 in ( 167.6 cm ) Study Date: May 14, 2008 Patient status: Outpatient Weight: 152.9 lb ( 69.5 kg ) Access. #: [id number] POC: Attending MD: Catherine Performing MD: Catherine Indications and History: INDICATIONS: Atypical anginal pain. PRIOR DIAGNOSTIC TEST RESULTS: Previous exercise nuclear stress test performed on April 25, 2008 was positive. Procedure(s) Performed: DIAGNOSTIC PROCEDURES: Left heart catheterization. Left ventriculography. Selective coronary angiography. Study Conclusions: SUMMARY - Global left ventricular function was normal. EF estimated by contrast ventriculography was 60 %. - Coronary angiography demonstrated minor luminal irregularities. RECOMMENDATIONS There is no evidence of obstruction to explain the reported symptoms;the stress test appears to be a false positive. The patient's chestdiscomfort does not appear due to obstructive coronary artery disease. The etiologyof the patient's discomfort is still not clear. The patient may resume all previous activities in 2 days. Following bedrest and subsequentambulation, the patient will be discharged if feeling well. The patient has been instructed to follow-up with you (the referring physician) in the near future. COMPLICATIONS: There were no complications. Description of Procedure: BACKGROUND INFORMATION: The procedures, together with their attendant risks and alternatives,and conscious sedation were explained to the patient and informed consentwas obtained. Contrast ( Optiray, 100 ml ) was administered during the procedure. The patient was given 50.000 mL (IV) IV Solutions. Thepatient was given 3.000 l/min OXYGEN. The patient was given 2.000 mg VERSED(IVP). NARRATIVE: - Right femoral artery access. Cardiac structures: VENTRICULOGRAPHY: There were no left ventricular regional wall motion abnormalities.Global left ventricular function was normal. EF estimated by contrast ventriculography was 60 %. Coronary and graft angiography: LEFT MAIN CORONARY ARTERY: Left main: The vessel was normal-sized and mildly calcified. Angiography showed no evidence of disease. LEFT ANTERIOR DESCENDING AND BRANCHES: LAD: The vessel was normal-sized and mildly calcified. Angiographyshowed minor luminal irregularities. LEFT CIRCUMFLEX AND BRANCHES: Circumflex: The vessel was normal-sized and mildly calcified.Angiography showed minor luminal irregularities. RIGHT CORONARY AND BRANCHES: RCA: The vessel was large (dominant). Angiography showed minor luminal irregularities. IMPRESSIONS: Coronary angiography demonstrated minor luminal irregularities. Condition1: --- Pressure mmHg Rate dPdt AO 134-S/ 57-D, 87-M 64 BPM LV 140-S/ 5-BD, 12-ED 60 BPM 1860 AOp 138-S/ 58-D, 90-M 63 BPM PBa 129-S/ 54-D, 85-M 67 BPM PBv 137-S/ 4-BD, 13-ED 64 BPM 1700 Prepared and Electronically Authenticated Doc Garland MD Confirmed May 14, 2008 15:37:28 Doc Garland MD FLUOROSCOPY ORDERABLES Final Result INTERFACE SYSTEM Refer to clinic/hospital department documented in this encounter Visit Diagnoses Diagnosis Other and unspecified angina pectoris documented in this encounter
--- OUTSIDE RECORDS SUMMARY | 2024-11-06 14:31 | XMS_ITS | Encounter Summary ---
Author Organization [facility] Address [address] [place] [address] Phone Care Team Providers Care Clinical Staff Anesthesiologist Name Role Phone Unknown, Notinfile Primary Care Provider Unavail able Stepan Stiles MD Primary Care Provider [phone] Cecilia López DO Primary Care Provider [phone] Encounter Details Date Type Department Care Team (Late st Contact Info) Description 12/13/2017 Orders Only [facility] ProviderJhony MD [address] [place] [address] Social History Tobacco Use Types Packs/Day Years Used Date Smoking Tobacco: Never Comments Unknown Sex and Gender Information Value Date Recorded Sex Assigned at Not on file 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 Historical Provider LAB BLOOD ORDERABLES Eufemia l Result documented in this encounter Visit Diagnoses Not on filedocumented in this encounter Care Teams Clinical Staff Anesthesiologist Relationship Specialty Start Date End Date Unknown, Notinfile PCP - General 12/13/17 01/02/18 Stepan Stiles MD [address] [place] [address] PCP - General 01/03/18 03/20/20 Cecilia López DO [address] [place] [address] PCP - General Family Medicine 03/21/20 documented as of this encounter
--- OUTSIDE RECORDS SUMMARY | 2024-11-06 14:31 | XMS_ITS | Clinical Summary ---
Author Organization [facility] Address [address] [place] [address] Care Team Providers Care Business Education Teacher Name Role Phone Cecilia López Primary Care Provider [phone] Allergies No known active allergies Medications calcium carbonate-vitam in D3 1500 mg (600 mg elemental) -200 units per tablet Take 1 tablet by mouth daily Active omega 4-epg-yml-fish oil 100-160-1,000 mg capsule Take 1 capsule by mouth daily Active insulin detemir U-100 (LEVEMIR) 100 unit/mL (3 mL) insulin pen Inject 8 Units under the skin nightly Active multivitamin tabletIndicatio ns:Vitamin Deficiency Prevention Take 1 tablet by mouth daily Active omeprazole (PriLOSEC) 20 mg capsule Take 1 capsule (20 mg total) by mouth daily Active escitalopram (LEXAPRO) 20 mg tablet Take 1 tablet (20 mg total) by mouth daily 1 Active cholecalciferol (VITAMIN D-3) 50,000 unit capsule Take 1 capsule (50,000 Units total) by mouth daily Active ferrous sulfate 325 mg (65 mg of elemental iron) tabletIndicatio ns:Iron Deficiency Anemia Take 1 tablet (325 mg total) by mouth 2 (two) times a day with meals Active vit C,S-Ui-ftijv-melony tein-zeaxan 250-90-40-1 mg capsule Take 1 capsule by mouth 2 (two) times a day Active FreeStyle Test strip 2 (two) times a day 2 Active clopidogreL (PLAVIX) 75 mg tablet Take 1 tablet (75 mg total) by mouth daily 30 tablet 11 3 Active empagliflozin-m etformin (Synjardy XR) 25-1,000 mg tablet, IR & ER, biphasic 24hr Take by mouth Active Novofine 32 32 gauge x 1/4 needle as directed 3 Active losartan (COZAAR) 50 mg tablet TAKE 1 TABLET(50 MG) BY MOUTH EVERY NIGHT 90 tablet 3 4 Active Additional Information Patient not taking.Reported on 10/31/2024 metoprolol XL (TOPROL-XL) 25 mg extended release tablet Take 0.5 tablets (12.5 mg total) by mouth daily 3 Active latanoprost (XALATAN) 0.005 % ophthalmic solution INSTILL 1 DROP IN BOTH EYES EVERY NIGHT 2.5 mL 11 4 Active dexAMETHasone (DECADRON) 0.1 % ophthalmic solution INSTILL 1 DROP INTO RIGHT EYE TWO TIMES DAILY AND 1 DROP INTO THE LEFT EYE ONCE DAILY 10 mL 3 4 Active atorvastatin (LIPITOR) 20 mg tablet TAKE 1 TABLET(20 MG) BY MOUTH EVERY NIGHT 90 tablet 1 4 Active acyclovir (ZOVIRAX) 800 mg tablet TAKE 1 TABLET(800 MG) BY MOUTH TWICE DAILY 180 tablet 1 4 Active amLODIPine (NORVASC) 5 mg tablet Take 1 tablet (5 mg total) by mouth daily Active Hospital, Clinic, or Other Facility Administered Medication Ordered Dose Route Frequency Start Date End Date Status aflibercept syringe (EYLEA) 2 mg/0.05 mL intraocular syringe 2 mgIndications:Exudative age-related macular degeneration of right eye with active choroidal neovascularization (HCC) 2 mg One-Time Injection 10/31/2024 5 Ended Active Problems Problem Noted Date Diagnosed Date 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 Theodore Keratitis, herpetic OD 02/03/2023 Assessment & Plan (07/05/2023 2:41 PM CDT): Scar reducing w/ central clearing SUPERVISOR ROUGH END 20/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 Stock 6-8mos Assessment & Plan (04/26/2023 3:41 PM CDT): Hx shingle in scalp on right side in distant past Pt has hx of uterine CA Hx of DM New geographic ulcer noted on 02/03/23, now resolved w/ 2nd carring VZV/HSV PCR negative Increase Acyclovir 800 po qd to bid Cont Dex BID OD, daily OS Latanoprost QHS OU RTC 2-3mos (may need rpeat PKP OD) Assessment & Plan (03/11/2023 9:28 AM CDT): Resolved ulcer CPM per Dr. Mccarthy Dex Acyclovir Xal Assessment & Plan (02/15/2023 1:31 PM CDT): Hx shingle in scalp on right side in distant past Pt has hx of uterine CA Hx of DM New geographic ulcer noted on 02/03/23, now resolved VZV/HSV PCR negative PLAN Decrease Valtrex 1g BID Decrease dex BID OD, cont QD OS Cont latanoprost OU qhs RTC 2 months Assessment & Plan (02/08/2023 10:35 AM CDT): Hx shingle in scalp on right side in distant past Pt has hx of uterine CA Hx of DM New geographic ulcer noted on 02/03/23, now resolved VZV/HSV PCR negative PLAN Stop Prednisone 40qd D/c Zirgan and moxi Cont Valtrex 1g TID Stop moxi Resume dex OD tid and OS qd Cont latanoprost OU qhs RTC 7-10d Assessment & Plan (02/03/2023 4:16 PM CDT): Hx shingle in scalp on right side in distant past Pt has hx of uterine CA Hx of DM C&S Start Prednisone 40qd (pt is diabetic and will talk w/ her MD Stop Dex Start Zirgan 5x/day moxi tid Valtrex 1g tid Cont latanoprost OU qhs RTC 1wk Headache above the eye region 01/27/2023 Assessment & Plan (01/27/2023 2:20 PM CDT): Not currently on any allergy medication Recommend OTC Flonase pills with acetaminophen, follow-up with primary care provider Conjunctival hemorrhage, left 07/07/2021 Assessment & Plan (07/07/2021 1:56 PM CDT): Acute onset X 1 day; pt noticed when putting on her make up this morning -denies straining, coughing, sneezing but did recently start Plavix and also taking baby aspirin -pt reassured; will resolve without tx but recommend art tears TID left eye (OS) due to bullous areas (no dellen) -RTC as scheduled 12/2021 or sooner as needed Coronary artery disease invo lving [place] coronary artery of [place] heart 06/23/2021 Overview (06/23/2021): Added automatically from request for surgery [id number] 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 Peripapillary atrophy, left 04/11/2020 Intermediate stage nonexudat brendan age-related macular degeneration of both eyes 04/11/2020 Assessment & Plan (01/27/2023 2:18 PM CDT): Continue care with Dr. Theodore. Return with any acute vision changes in the right eye. Continue Amsler grid daily. Assessment & Plan (07/06/2022 3:41 PM CDT): seen today by Dr. Theodore Cont to follow with retina Assessment & Plan (01/19/2022 9:40 AM CDT): best-corrected visual acuity (BVA) stable right eye (OD). Follow with Dr. Theodore, last seen 12/15/21. Cont amsler/preservision, call with any changes. Assessment & Plan (06/09/2021 3:00 PM CDT): Hx significant AMD OU, OS worse with progressive decline in vision. Some early cystic changes OS (?T2DM) Last saw Dr. Theodore 04/2020 Given progressive decline and vision and cystic changes, will refer back to Dr. Theodore for repeat retina eval RTC Dr. Theodore next available Assessment & Plan (04/22/2020 4:04 PM CDT): No hemorrhage , subretinal fluid or cystoid macular edema (CME) on exam. Patient denies history of intravitreal injections. ?? AREDS2 ?? Amsler grid Assessment & Plan (04/11/2020 10:08 AM CDT): Retinal pigment epithelium (RPE) and atrophic changes (left eye (OS)>OD. 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 ?? Optimal diabetes mellitus (DM) control discussed Assessment & Plan (04/11/2020 9:59 AM CDT): Patient was educated on the importance of maintaining tight blood glucose control in order to reduce the risk for diabetic ocular complications. Refraction disorder 04/11/2020 Assessment & Plan (03/11/2023 9:42 AM CDT): Pt inquiring about driving, I recommended she NOT drive. Pt and daughter voiced understanding. Pt ed vision may improve right eye (OD), can recheck refraction once OK'd per Dr. Theodore. Assessment & Plan (01/27/2023 2:21 PM CDT): Be VA improves with refraction in the right eye, release updated glasses prescription Monocular precautions Assessment & Plan (01/19/2022 9:40 AM CDT): Release updated glasses Rx - rec SVN vs PAL for prolonged reading, will improve FOV, rec good overhead lighting Assessment & Plan (04/11/2020 10:05 AM CDT): Significant change from hab Rx - pt appreciated with trial frame. Release updated glasses Rx (polycarb, ar coating). 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) Currently on: Dex BID OD, daily OS Latanoprost QHS OU Assessment & Plan (01/27/2023 2:21 PM CDT): Continue dexamethasone drops daily Follow annually with cornea Assessment & Plan (06/09/2021 2:59 PM CDT): Hx Corneal transplant OU (OD last PKP 2005), OS Grafts clear OU, no signs of rejection Suspect vision decline most profound OS related to AMD, not cornea PLAN: -continue Dex gtts OU QD -NPAT / Restasis OU BID prn -latanoprost OU QHS -RTC Cornea Annual, sooner PRN Assessment & Plan (11/14/2020 9:01 AM MAINTENANCE SERVICE SUPERVISOR): OD Hx of superior edema - improved OS Broken stitch nub broken to flush with cornea Pt knows to call Tuesday if FBS persists Plan - oflox TID x 3 days, then STOP -continue Dex gtts OU QD -NPAT / Restasis OU BID prn -latanoprost OU QHS RTC Brien as scheduled, sooner PRN Assessment & Plan (05/08/2020 2:42 PM CDT): OD Hx of superior edema - improved OS Fluctuating vision Few inferior spk Clear DSEK -continue Dex gtts OU QD -NPAT / Restasis OU BID prn -latanoprost OU QHS Assessment & Plan (04/11/2020 10:00 AM CDT): CPM per Dr. Tesfaye. Assessment & Plan (02/16/2019 10:56 AM CDT): OD Superior edema in graft w/o change OS Stable continue dexamethasone drops OU q.day Continue latanoprost OU q.h.s. 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 Tesfaye Assessment & Plan (02/16/2019 11:06 AM CDT): Measured today -monitor Assessment & Plan (10/17/2018 11:51 AM MAINTENANCE SERVICE SUPERVISOR): Measured today -monitor Assessment & Plan (06/06/2018 12:01 PM CDT): Saw Dr Tejada, recommended observation Increased frequency of urination 12/13/2017 History of endometrial cancer 12/08/2016 Fuchs' corneal dystrophy 07/01/2016 Assessment & Plan (07/06/2022 3:42 PM CDT): Hx Corneal transplant OU (OD last PKP 2004, 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 Grafts clear OU, no signs of rejection Suspect vision decline most profound OS related to AMD, not cornea ?? PLAN: -continue Dex gtts OU QD -NPAT / Restasis OU BID prn -latanoprost OU QHS -RTC Cornea yearly, sooner PRN Retinal scar 07/01/2015 Arthritis 11/21/2013 Diabetes mellitus 11/21/2013 Assessment & Plan (03/11/2023 9:26 AM CDT): No results found for: HGBA1C No retinopathy. Pt ed. Stressed BG control (HbA1C<7) to reduce the risk for diabetic ocular complications. Assessment & Plan (02/16/2019 11:34 AM CDT): 18 yr hx / 3yrs on insulin No diabetic retinopathy DFE next visit 1 yr Malignant neoplasm of vagina (CMS/HCC) 4 Corneal opacity 01/02/2013 Assessment & Plan (07/18/2018 1:06 PM CDT): Resolved superior GHI neovascularization Taper (PF) DEX tid x 1mo, then bid x 1mo, then qd RTC 3mos Gastric ulcer 11/15/2012 Heartburn 11/15/2012 Hyperlipidemia 11/15/2012 Hypertension 11/15/2012 Tear film insufficiency 11/19/2010 Pseudophakia 11/19/2010 Assessment & Plan (04/11/2020 10:00 AM CDT): Pt ed on intraocular lens (IOL) status. Follow. Encounter for preventive health examination 05/11 Resolved Problems Problem Noted Date Diagnosed Date Resolved Date History of malignant neoplas m of other parts of uterus 12/19/2018 12/19/2018 Overview (12/19/2018): Uterine Cancer - (Added by TW Conv) Status post PKP OS '06 07/18/201802/16 Assessment & Plan (10/17/2018 11:50 AM MAINTENANCE SERVICE SUPERVISOR): -stable vision -continue preservative free dexamethasone once daily No intraocular inflammation or concern for rejection although fine vessels seen towards interface superior nasally -monitor with repeat exam in 3-6 months. 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 06/06/201802/16 Assessment & Plan (10/17/2018 11:50 AM MAINTENANCE SERVICE SUPERVISOR): MCE superiorly, measured today -stable vision -continue preservative free dexamethasone once daily No intraocular inflammation or concern for rejection. Assessment & Plan (07/18/2018 1:06 PM CDT): CPM Assessment & Plan (06/06/2018 12:17 PM CDT): H/o Fuch's s/p PKP OD (2003) OS (2005) -grafts clear, VA stable, IOP ok -broken suture - removed / TD tid x 3d KNV superiorly on graft OS Dex OS qid Continue: Latanoprost QHS OU Dexamethasone qd OU Secondary corneal edema of right eye 07/01/2015 02/16/2019 H/O cornea transplant 11/19/20102018 Encounters Date Type Department Care Team Description 10/31/2024 10:30 AM MAINTENANCE SERVICE SUPERVISOR Office Visit [facility] [address] [place] [phone] Nazanin Theodore MD PhD Exudative age-related macular degeneration of right eye with active choroidal neovascularization (HCC) (Primary Dx) 09/26/2024 11:00 AM MAINTENANCE SERVICE SUPERVISOR Office Visit [facility] [address] [place] [phone] Nazanin Theodore MD PhD Exudative age-related macular degeneration of right eye with active choroidal neovascularization (HCC) (Primary Dx); 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 08/22/2024 1:30 PM MAINTENANCE SERVICE SUPERVISOR Office Visit [facility] [address] [place] [phone] Nazanin Theodore MD PhD Exudative age-related macular degeneration of right eye with active choroidal neovascularization (HCC) (Primary Dx) from Last 3 Months Immunizations Name Administration Dates Next Due Influenza, Quadrivalent, Rec ombinant, Egg Free, Preservative Free, Intramuscular 07/23/2021,07/18/2020,06/27/2019 Influenza, Trivalent, High D ose, Split, Preservative Free, Intramuscular 06/01/2018 Influenza, Unspecified 07/19/2018,07/19/2018 Pneumococcal, Unspecified 07/19/2018,07/19/2018 Surgical History Surgery Date Site/Laterality Comments WA COLONOSCOPY FLX DX W/COLLJ SPEC WHEN PFRMD Complete Colonoscopy - (Added by Conv) WA EXC CYST/ABERRANT BREAST TISSUE OPEN 1/> LESION Breast Surgery Lumpectomy - (Added by Conv) CATARACT EXTRACTION Bilateral EAR SURGERY Right skin cancer excision COLONOSCOPY HYSTERECTOMY BREAST BIOPSY BREAST LUMPECTOMY CORNEAL TRANSPLANT in both eyes TUMOR REMOVAL Right squamous cell tumor removed from leg VAGINA SURGERY vaginal cuff cancer radiation ANGIOPLASTY 06/10/2021 - 07/09/2021 CORONARY ANGIOPLASTY WITH STENT PLACEMENT Medical History Medical History Date Comments History of malignant neoplas m of other parts of uterus Uterine Cancer - (Added by [facility] Aguirre Conv) Personal history of other sp ecified conditions History of breast lump - (Ad ded by Conv) Arthritis Diabetes mellitus (HCC) Glaucoma Fuchs' corneal dystrophy Ocular migraine Hypertension Hyperlipidemia Cancer (CMS/HCC) (HCC) vaginal c uff 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 Anemia Type 2 diabetes mellitus (HCC) Macular degeneration of left eye SOB (shortness of breath) CAD (coronary artery disease) Frequent urination at night Diarrhea QUINAULT (hard of hearing) Family History Medical History Relation Name Comments Heart failure Father Cardiac Failur e - (Added by Conv) Breast cancer Mother Breast Cancer - (Added by Conv) Cancer Mother Cataracts Mother Diabetes Mother Diabetes Mellit us - (Added by Conv) Fuchs' dystrophy Mother Heart failure Mother Cardiac Failur e - (Added by Conv) Relation Name Status Comments Father (Age 76) Mother (Age 69) Social History Tobacco Use Types Packs/Day Years Used Date Smoking Tobacco: Never Passive Smoke Exposure: Never Smokeless Tobacco: Never Tobacco Cessation:Counseling Given: Not Answered Alcohol Use Standard Drinks/Week Comments Yes 0 (1 standard drink = 0.6 oz pur e alcohol) socially drinks AUDIT-C Answer Date Recorded Q1: How often do you have a drink containing alc ohol? 2-3 times a week 07/03/2021 Q2: How many drinks containi ng alcohol do you have on a typical day when you are drinking? 1 or 2 07/03/2021 Q3: How often do you have si x or more drinks on one occasion? Never 07/03/2021 Comments No Sex and Gender Information Value Date Recorded Sex Assigned at Not on file Legal Sex Female 2:56 AM MAINTENANCE SERVICE SUPERVISOR Gender Identity Not on file Sexual Orientation Not on file Obstetrics History Para Term AB IAB SAB Ectopic Multiple Livin g Live Births 3 3 3 3 Date Outcome GA Total Labor Labor/2nd/3rd Weight Sex Type Anes PTL Fadumo A1 A5 Name Clin Term Term Term Last Filed Vital Signs Vital Sign Reading Time Taken Comments Blood Pressure 145/77 02/01/2024 1:47 PM CDT Pulse 59 11/30/2023 1:04 PM MAINTENANCE SERVICE SUPERVISOR Temperature 36.9 ??C (98.5 ??F) 02/16/2023 2:03 PM CD T Respiratory Rate 16 02/16/2023 2:03 PM CDT Oxygen Saturation 99% 11/30/2023 1:04 PM MAINTENANCE SERVICE SUPERVISOR Inhaled Oxygen Concentration - - Weight 53.1 kg (117 lb) 11/30/2023 1:04 PM MAINTENANCE SERVICE SUPERVISOR Height 167.6 cm (5' 6 ) 11/30/2023 1:04 PM MAINTENANCE SERVICE SUPERVISOR Body Mass Index 18.88 11/30/2023 1:04 PM MAINTENANCE SERVICE SUPERVISOR Plan of Treatment Health Maintenance Due Date Last Done Comments Albumin Creatinine Ratio, Urine 1940 Depression Screening 1940 Hemoglobin A1C 1940 Osteoporosis Screening-Bone Density Scan 1940 Foot Exam 1940 Pneumococcal vaccine 65+ (1 of 2 - PCV) 1946 07/19/2018, 07/19/2018 DTaP/Tdap/Td Vaccine (1 - Tdap) 1951 Hepatitis B Screening 1958 Zoster Vaccine (1 of 2) 1990 Well Visit 65+ 2005 eGFR 08/09/2023 08/09/2022, 0910/2020, 06/19/2021, Additional history exists Fall Risk Assessment 08/12/2023 08/12/2022, 07/15/20 21 Dilated Eye Exam 11/10/2023 11/10/2022, , 07/06/2022, Additional history exists Covid-19 Vaccine (5 - 2023-2 5 season) 2024 03/26/2022, 09/18/2021, 01/02/2021, Additional history exists Influenza Vaccine (#1) 2024 , 07/18/2020, 06/27/2019, Additional history exists Lipid Panel 03/21/2025 03/21/2024, 06/0 04/2023, 07/23/2022, Additional history exists Medical Devices Implanted Type Area Dynamicist Device Identifier Shelf Expiration Date Model / Serial / Lot [employer] [id number] Catheter 3.5x12 Mm Shockwave C2 Ivl - [id number] Implanted:Qty: 1 on 07/03/2021 by Donte Leonard MD at [employer] 01/07/2023 [id number] / / [employer] [id number] Synergy 3.5mm 24mm 144cm Radiopaque 1 Access Port Inflation Lumen - [id number] Implanted:Qty: 1 on 07/03/2021 by Donte Leonard MD at [employer] 01/15/2023 [id number] / / [employer] Mynx Control 6-7fr 2 Mode Balloon Catheter Sealant Lock Syringe [id number] - [id number] Implanted:Qty: 1 on 08/12/2022 by Donte Leonard MD at [employer] 06/09/2024 [id number] / / [id number] Procedures Procedure Name Priority Date/Time Associated Diagnosis Comments INTRAVITREAL INJECTION, PHARMACOLOGIC AGENT - OD - RIGHT EYE Routine 10/31/2024 12:17 PM MAINTENANCE SERVICE SUPERVISOR Exudative age-related macular degeneration of right eye with active choroidal neovascularization (HCC) OCT, RETINA - OU - BOTH EYES Routine 10/31/2024 12:12 PM MAINTENANCE SERVICE SUPERVISOR Exudative age-related macular degeneration of right eye with active choroidal neovascularization (HCC) INTRAVITREAL INJECTION, PHARMACOLOGIC AGENT - OD - RIGHT EYE Routine 09/26/2024 12:22 PM MAINTENANCE SERVICE SUPERVISOR Exudative age-related macular degeneration of right eye with active choroidal neovascularization (HCC) OCT, RETINA - OU - BOTH EYES Routine 09/26/2024 11:49 AM MAINTENANCE SERVICE SUPERVISOR 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 INTRAVITREAL INJECTION, PHARMACOLOGIC AGENT - OD - RIGHT EYE Routine 08/22/2024 2:18 PM MAINTENANCE SERVICE SUPERVISOR Exudative age-related macular degeneration of right eye with active choroidal neovascularization (HCC) OCT, RETINA - OU - BOTH EYES Routine 08/22/2024 1:47 PM MAINTENANCE SERVICE SUPERVISOR Exudative age-related macular degeneration of right eye with active choroidal neovascularization (HCC) LIPID PANEL Routine 03/21/2024 11:49 AM CDT COMPREHENSIVE METABOLIC PANEL Routine 08/09/2022 10:49 AM CDT Coronary artery disease involving [place] coronary artery of [place] heart with angina pectoris (CMS/HCC) (HCC) Pre-procedure lab exam from Last 3 Months or Most Recently Relevant to Health Maintenance Results * Intravitreal Injection, Pharmacologic Agent - OD - Right Eye (10/31/2024 12:17 PM MAINTENANCE SERVICE SUPERVISOR) Anatomical Region Laterality Modality Head Other Narrative 10/31/2024 12:17 PM MAINTENANCE SERVICE SUPERVISOR Time Out Informed consent was obtained after all risks, benefits and alternatives were explained to the patient. The patient understood, agreed and wished to proceed. Timeout was completed verifying the patient, procedure, laterality and allergies. Anesthesia Subconjunctival anesthesia was used, Topical anesthesia was used. Anesthetic medications included Lidocaine 2%, Proparacaine 0.5%. The anesthesia lot number is [id number]. The expiration date is 11/09/25. The manufacture of the medication is [employer] Intravitreal Injection, Pharmacologic Agent Preparation included 5% betadine to ocular surface, 10% betadine to eyelids. A supplied needle was used. Pharmaceutical Medication: 2 mg aflibercept syringe 2 mg/0.05 mL ??Route: intravitreal, Site: Right Eye ??[facility]: [id number], Lot: [id number], Expiration date: 02/06/2026, Waste: 0 mL The medication administered today was not a sample. The medication administered today was not supplied by the patient or insurance. Post-op Post injection exam found visual acuity is at least hand motion. the patient tolerated the procedure. there were no complications during today's treatment. The patient received written and verbal post procedure care education. Post injection medications were not given. The attending physician was present for the entire procedure. Notes Pt signed consent for BRENDAN OD 01/25/24 us Nazanin Theodore MD PhD OPHTH CLINIC PROCEDU RES Final Result * OCT, Retina - OU - Both Eyes (10/31/2024 12:12 PM MAINTENANCE SERVICE SUPERVISOR) Anatomical Region Laterality Modality Head Optical Coherenc e Tomography Narrative 10/31/2024 12:12 PM MAINTENANCE SERVICE SUPERVISOR Right Eye Quality was good. Scan locations included subfoveal. Progression has worsened. Findings include choroidal neovascular membrane, intraretinal fluid. Left Eye Quality was good. Scan locations included subfoveal. Progression has been stable. Findings include abnormal foveal contour. Notes Right eye (OD) stable without recurrent ??cystoid macular edema (CME) ?? Left eye (OS): stable diffuse geographic atrophy, mild non central , nasal subretinal fluid us Nazanin Theodore MD PhD OPHTH TOMOGRAPHY Fin al Result * Intravitreal Injection, Pharmacologic Agent - OD - Right Eye (09/26/2024 12:22 PM MAINTENANCE SERVICE SUPERVISOR) Anatomical Region Laterality Modality Head Other Narrative 09/26/2024 12:22 PM MAINTENANCE SERVICE SUPERVISOR Time Out Informed consent was obtained after all risks, benefits and alternatives were explained to the patient. The patient understood, agreed and wished to proceed. Timeout was completed verifying the patient, procedure, laterality and allergies. Anesthesia Subconjunctival anesthesia was used, Topical anesthesia was used. Anesthetic medications included Lidocaine 2%, Proparacaine 0.5%. The anesthesia lot number is [id number]. The expiration date is 10/2025. The manufacture of the medication is [employer]. Intravitreal Injection, Pharmacologic Agent Preparation included 5% betadine to ocular surface, 10% betadine to eyelids. A 30 gauge needle was used. Pharmaceutical Medication: 2 mg aflibercept syringe 2 mg/0.05 mL ??Route: intravitreal, Site: Right Eye ??[facility]: [phone], Lot: [id number], Expiration date: 01/07/2026, Waste: 0 mL The medication administered today was not a sample. The medication administered today was not supplied by the patient or insurance. Post-op Post injection exam found visual acuity is at least hand motion. the patient tolerated the procedure. there were no complications during today's treatment. The patient received written and verbal post procedure care education. The attending physician was present for the entire procedure. Notes Pt signed consent for I'VE OD 01/25/24 us Nazanin Theodore MD PhD OPHTH CLINIC PROCEDU RES Final Result * OCT, Retina - OU - Both Eyes (09/26/2024 11:49 AM MAINTENANCE SERVICE SUPERVISOR) Anatomical Region Laterality Modality Head Optical Coherenc e Tomography Narrative 09/26/2024 11:49 AM MAINTENANCE SERVICE SUPERVISOR Right Eye Quality was good. Scan locations included subfoveal. Progression has worsened. Findings include choroidal neovascular membrane, intraretinal fluid. Left Eye Quality was good. Scan locations included subfoveal. Progression has been stable. Findings include abnormal foveal contour. Notes Right eye (OD) stable without recurrent ??cystoid macular edema (CME) ?? Left eye (OS): stable diffuse geographic atrophy, no cystoid macular edema (CME) or subretinal fluid Nazanin Theodore MD PhD OPHTH TOMOGRAPHY Fin al Result * Intravitreal Injection, Pharmacologic Agent - OD - Right Eye (08/22/2024 2:18 PM MAINTENANCE SERVICE SUPERVISOR) Anatomical Region Laterality Modality Head Other Narrative 08/22/2024 2:18 PM MAINTENANCE SERVICE SUPERVISOR Time Out Informed consent was obtained after all risks, benefits and alternatives were explained to the patient. The patient understood, agreed and wished to proceed. Timeout was completed verifying the patient, procedure, laterality and allergies. Anesthesia Subconjunctival anesthesia was used, Topical anesthesia was used. Anesthetic medications included Lidocaine 2%, Proparacaine 0.5%. The anesthesia lot number is [id number]. The expiration date is 11/2025. The manufacture of the medication is [employer] Intravitreal Injection, Pharmacologic Agent Preparation included 5% betadine to ocular surface, 10% betadine to eyelids. A 30 gauge needle was used. Pharmaceutical Medication: 2 mg aflibercept syringe 2 mg/0.05 mL ??Route: intravitreal, Site: Right Eye ??[facility]: [id number], Lot: [id number], Expiration date: 06/09/2025, Waste: 0 mL The medication administered today was not a sample. The medication administered today was not supplied by the patient or insurance. Post-op Post injection exam found visual acuity is at least hand motion. the patient tolerated the procedure. there were no complications during today's treatment. The patient received written and verbal post procedure care education. The attending physician was present for the entire procedure. Notes Pt signed consent for I'VE OD 01/25/24 Nazanin Theodore MD PhD OPHTH CLINIC PROCEDU RES Final Result * OCT, Retina - OU - Both Eyes (08/22/2024 1:47 PM MAINTENANCE SERVICE SUPERVISOR) Anatomical Region Laterality Modality Head Optical Coherenc e Tomography Narrative 08/22/2024 1:47 PM MAINTENANCE SERVICE SUPERVISOR Right Eye Quality was good. Scan locations included subfoveal. Progression has worsened. Findings include choroidal neovascular membrane, intraretinal fluid. Left Eye Quality was good. Scan locations included subfoveal. Progression has been stable. Findings include abnormal foveal contour. Notes Right eye (OD) stable without recurrent ??cystoid macular edema (CME) ?? Left eye (OS): stable diffuse geographic atrophy, no cystoid macular edema (CME) or subretinal fluid Nazanin Theodore MD PhD OPHTH TOMOGRAPHY Fin al Result * Lipid panel (03/21/2024 11:49 AM CDT) SCRIBED Cholesterol, Total 83 <200 EXTERNAL LAB SCRIBED HDL 49 >40 EXTERNAL LAB SCRIBED LDL 19 <100 EXTERNAL LAB SCRIBED Triglycerides 71 <150 EXTERNAL LAB Blood us Historical Provider LAB BLOOD ORDERABLES Edit ed Result - Final EXTERNAL LAB * (ABNORMAL) Comprehensive metabolic panel (08/09/2022 10:49 AM CDT) Glucose 139(H) 65 - 99 mg/dL [facility] Comment: ? Fasting reference interval For someone without known diabetes, a glucose value >125 mg/dL indicates that they may have diabetes and this should be confirmed with a follow-up test. BUN 12 7 - 25 mg/dL [facility] Creatinine 0.92 0.60 - 0.95 mg/dL [facility] eGFR 63 > OR = 60 mL/min/1. 73m2 [facility] Comment: The eGFR is based on the CKD-EPI 2020 equation. To calculate the new eGFR from a previous Creatinine or Cystatin C result, go to https://www.kidney.org/professionals/ kdoqi/gfr%5Fcalculator BUN/creat ratio NOT APPLICABLE 6 - 22 (calc) [facility] Sodium 136 135 - 146 mmol/L [facility] Potassium, pl 4.3 3.5 - 5.3 mmol/L [facility] Chloride 105 98 - 110 mmol/L [facility] CO2 26 20 - 32 mmol/L [facility] Calcium 9.0 8.6 - 10.4 mg/dL [facility] Protein, sr 6.3 6.1 - 8.1 g/dL [facility] Albumin 3.5(L) 3.6 - 5.1 g/dL [facility] GLOBULIN 2.8 1.9 - 3.7 g/dL (calc) [facility] Alb/glob ratio 1.3 1.0 - 2.5 (calc) [facility] Bilirubin, total 1.2 0.2 - 1.2 mg/dL [facility] Alk phos 57 37 - 153 U/L [facility] AST 18 10 - 35 U/L [facility] ALT (SGPT) 15 6 - 29 U/L [facility] Blood 08/09/2022 10:4 9 AM CDT 08/09/2022 10:50 AM CDT us Donte Leonard MD LAB BLOOD ORDERABLES Final Resul t [facility] [id number] [address] [id number] from Last 3 Months or Most Recently Relevant to Health Maintenance Insurance MEDICARE [facility] MEDICARE [facility] MEDICARE [facility] Care Teams Business Education Teacher Relationship Specialty Start Date End Date Cecilia López DO PCP - General Family Medicine 03/21/20
--- OUTSIDE RECORDS SUMMARY | 2024-11-06 14:31 | XMS_ITS ---
Author Organization [facility] Address [address] [place] [address] Care Team Providers Care Box Sorter Name Role Phone Cecilia López DO Primary Care Provider +1- [phone] Active Problems Problem Noted Date Diagnosed Date 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 Grafts clear [...] Follow. Encounter for preventive health examination 05/11 Current Oncology Plans No current plan information found. Past Plans No past plan information found. Radiation Treatments * No radiation treatments are documented for this patient in [employer]. Treatments may have been administered in another system. Lifetime Dose Tracking * Chemical Lifetime Dose Automatic Entry Manual Entr y Air kerma at the reference point (Ka,r) 596 mGy 0 mGy 596 mGy Resolved Problems Problem Noted Date Diagnosed Date Resolved Date History of malignant neoplas m of other parts of uterus 12/19/2018 12/19/2018 Overview (12/19/2018): Uterine Cancer - (Added by TW Conv) Status post PKP OS '06 07/18/201802/16 Assessment & Plan (10/17/2018 11:50 AM BAROMETERS CALIBRATOR): -stable vision -continue preservative free dexamethasone once daily No intraocular inflammation or concern for rejection although fine vessels seen towards interface superior nasally -monitor with repeat exam in 3-6 months. 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 06/06/201802/16 Assessment & Plan (10/17/2018 11:50 AM BAROMETERS CALIBRATOR): MCE superiorly, measured today -stable vision -continue [...]
--- OUTSIDE RECORDS SUMMARY | 2024-11-06 14:31 | XMS_ITS | Clinical Summary ---
Author Organization [facility] Address [address] [place]: Epic Prelude ADT [place] [id number] Care Team Providers Care Forwarder Operator Name Role Phone Unavailable Primary Care Provider Unavailabl e Social History Tobacco Use Types Packs/Day Years Used Date Smoking Tobacco: Never Assessed Comments Unknown Sex and Gender Information Value Date Recorded Sex Assigned at Not on file Legal Sex Female 5:36 AM DONATIONS ATTENDANT Gender Identity Not on file Sexual Orientation Not on file Plan of Treatment Health Maintenance Due Date Last Done Comments DTAP/TDAP/TD VACCINES (1 - Tdap) 1959 PNEUMOCOCCAL VACCINE 65+ YEARS (1 of 1 - PCV) 11/23/18 91 ZOSTER VACCINE (1 of 2) 1990 OSTEOPOROSIS SCREENING 2005 RSV VACCINE (60+ or ) (1 - 1-dose 75+ series) 2015 INFLUENZA VACCINE (#1) 2024
--- OUTSIDE RECORDS SUMMARY | 2024-11-06 14:31 | XMS_ITS | Referral Summary ---
Author Organization [facility] Address [address] [place] [address] Care Team Providers Care Corrosion Control Fitter Name Role Phone Cecilia López DO Primary Care Provider +1- [phone] Encounters Date Type Department Care Team Description 10/31/2024 10:30 AM BAG FILLER Office Visit [facility] Ophthalmology [address] [place] [address] Outpatient Health [address] [place] [phone] Nazanin Theodore MD PhD Exudative age-related macular degeneration of right eye with active choroidal neovascularization (HCC) (Primary Dx) 09/26/2024 11:00 AM BAG FILLER Office Visit [facility] Ophthalmology [address] [place] [phone] Nazanin Theodore MD PhD Exudative age-related macular degeneration of right eye with active choroidal neovascularization (HCC) (Primary Dx); 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 08/22/2024 1:30 PM BAG FILLER Office Visit [facility] Ophthalmology [address] [place] [address] Outpatient Health [address] [place] [phone] Nazanin Theodore MD PhD Exudative age-related macular degeneration of right eye with active choroidal neovascularization (HCC) (Primary Dx) from Last 3 Months Allergies No known active allergies Medications calcium carbonate-vitam in D3 1500 mg (600 mg elemental) -200 units per tablet Take 1 tablet by mouth daily Active omega 3-hxs-cjr-fish oil 100-160-1,000 mg capsule Take 1 capsule [...] times a day with meals Active vit C,V-Dw-ojwdf-melony tein-zeaxan 250-90-40-1 mg capsule Take 1 capsule [...] PM CDT): Scar reducing w/ central clearing 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 Stock 6-8mos Assessment [...] as needed Coronary artery disease invo lving [place] coronary artery of [place] heart 06/23/2021 Overview (06/23/2021): Added automatically from request for surgery [id number] Advanced nonexudative age-re lated macular degeneration of [...] PRN Assessment & Plan (11/14/2020 9:01 AM BAG FILLER): OD Hx of superior edema - improved [...] -monitor Assessment & Plan (10/17/2018 11:51 AM BAG FILLER): Measured today -monitor Assessment & Plan (06/06/2018 [...] 07/18/201802/16 Assessment & Plan (10/17/2018 11:50 AM BAG FILLER): -stable vision -continue preservative free dexamethasone once daily No intraocular inflammation or concern for rejection although fine vessels seen towards interface superior nasally -monitor with repeat exam in 3-6 months. 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 06/06/201802/16 Assessment & Plan (10/17/2018 11:50 AM BAG FILLER): MCE superiorly, measured today -stable vision -continue [...] eye 07/01/2015 02/16/2019 H/O cornea transplant 11/19/20102018 Immunizations Name Administration Dates Next Due Influenza, Quadrivalent, Rec ombinant, Egg Free, Preservative Free, Intramuscular 07/23/2021,07/18/2020,06/27/2019 Influenza, Trivalent, High D ose, Split, Preservative Free, Intramuscular 06/01/2018 Influenza, Unspecified 07/19/2018,07/19/2018 Pneumococcal, Unspecified 07/19/2018,07/19/2018 Social History Tobacco Use Types Packs/Day Years [...] on file Legal Sex Female 2:56 AM BAG FILLER Gender Identity Not on file Sexual Orientation Not on file Last Filed Vital Signs Vital Sign Reading Time Taken Comments Blood Pressure 145/77 02/01/2024 1:47 PM CDT Pulse 59 11/30/2023 1:04 PM BAG FILLER Temperature 36.9 ??C (98.5 ??F) 02/16/2023 2:03 PM CD T Respiratory Rate 16 02/16/2023 2:03 PM CDT Oxygen Saturation 99% 11/30/2023 1:04 PM BAG FILLER Inhaled Oxygen Concentration - - Weight 53.1 kg (117 lb) 11/30/2023 1:04 PM BAG FILLER Height 167.6 cm (5' 6 ) 11/30/2023 1:04 PM BAG FILLER Body Mass Index 18.88 11/30/2023 1:04 PM BAG FILLER Plan of Treatment Not on file Medical Devices Implanted Type Area Sexual Abuse Counsellor Device Identifier Shelf Expiration Date Model / Serial / Lot [employer] Medical [id number] Catheter 3.5x12 Mm Shockwave C2 Ivl - [id number] Implanted:Qty: 1 on 07/03/2021 by Donte Leonard MD at [facility] 01/07/2023 [id number] [employer] [id number] Synergy 3.5mm 24mm 144cm Radiopaque 1 Access Port Inflation Lumen - [id number] Implanted:Qty: 1 on 07/03/2021 by Donte Leonard MD at [facility] [employer] 01/15/2023 [id number] / / Access [employer] Mynx Control 6-7fr 2 Mode Balloon Catheter Sealant Lock Syringe [id number] - [id number] Implanted:Qty: 1 on 08/12/2022 by Donte Leonard MD at [facility] [employer] 06/09/2024 [id number] / / [id number] Procedures Procedure Name Priority Date/Time Associated Diagnosis Comments INTRAVITREAL INJECTION, PHARMACOLOGIC AGENT - OD - RIGHT EYE Routine 10/31/2024 12:17 PM BAG FILLER Exudative age-related macular degeneration of right eye with active choroidal neovascularization (HCC) OCT, RETINA - OU - BOTH EYES Routine 10/31/2024 12:12 PM BAG FILLER Exudative age-related macular degeneration of right eye with active choroidal neovascularization (HCC) INTRAVITREAL INJECTION, PHARMACOLOGIC AGENT - OD - RIGHT EYE Routine 09/26/2024 12:22 PM BAG FILLER Exudative age-related macular degeneration of right eye with active choroidal neovascularization (HCC) OCT, RETINA - OU - BOTH EYES Routine 09/26/2024 11:49 AM BAG FILLER 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 INTRAVITREAL INJECTION, PHARMACOLOGIC AGENT - OD - RIGHT EYE Routine 08/22/2024 2:18 PM BAG FILLER Exudative age-related macular degeneration of right eye with active choroidal neovascularization (HCC) OCT, RETINA - OU - BOTH EYES Routine 08/22/2024 1:47 PM BAG FILLER Exudative age-related macular degeneration of right eye with active choroidal neovascularization (HCC) LIPID PANEL Routine 03/21/2024 11:49 AM CDT COMPREHENSIVE METABOLIC PANEL Routine 08/09/2022 10:49 AM CDT Coronary artery disease involving [place] coronary artery of [place] heart with angina pectoris (CMS/HCC) (HCC) Pre-procedure lab exam from Last 3 Months or Most Recently Relevant to Health Maintenance Results * Intravitreal Injection, Pharmacologic Agent - OD - Right Eye (10/31/2024 12:17 PM BAG FILLER) Anatomical Region Laterality Modality Head Other Narrative 10/31/2024 12:17 PM BAG FILLER Time Out Informed consent was obtained after all risks, benefits and alternatives were explained to the patient. The patient understood, agreed and wished to proceed. Timeout was completed verifying the patient, procedure, laterality and allergies. Anesthesia Subconjunctival anesthesia was used, Topical anesthesia was used. Anesthetic medications included Lidocaine 2%, Proparacaine 0.5%. The anesthesia lot number is [id number]. The expiration date is 11/09/25. The manufacture of the medication is [employer]. Intravitreal Injection, Pharmacologic Agent Preparation included 5% betadine to ocular surface, 10% betadine to eyelids. A supplied needle was used. Pharmaceutical Medication: 2 mg aflibercept syringe 2 mg/0.05 mL ??Route: intravitreal, Site: Right Eye ??[facility][NOTE 3]: 99378-072-91, Lot: [id number], Expiration date: 02/06/2026, Waste: 0 mL The [...] entire procedure. Notes Pt signed consent for JODY OD 01/25/24 Nazanin Theodore MD PhD OPHTH CLINIC PROCEDU RES Final Result * OCT, Retina - OU - Both Eyes (10/31/2024 12:12 PM BAG FILLER) Anatomical Region Laterality Modality Head Optical Coherenc e Tomography Narrative 10/31/2024 12:12 PM BAG FILLER Right Eye Quality was good. Scan locations included subfoveal. Progression has worsened. Findings include choroidal neovascular membrane, intraretinal fluid. Left Eye Quality was good. Scan locations included subfoveal. Progression has been stable. Findings include abnormal foveal contour. Notes Right eye (OD) stable without recurrent ??cystoid macular edema (CME) ?? Left eye (OS): stable diffuse geographic atrophy, mild non central , nasal subretinal fluid Nazanin Theodore MD PhD OPHTH TOMOGRAPHY Fin al Result * Intravitreal Injection, Pharmacologic Agent - OD - Right Eye (09/26/2024 12:22 PM BAG FILLER) Anatomical Region Laterality Modality Head Other Narrative 09/26/2024 12:22 PM BAG FILLER Time Out Informed consent was obtained after all risks, benefits and alternatives were explained to the patient. The patient understood, agreed and wished to proceed. Timeout was completed verifying the patient, procedure, laterality and allergies. Anesthesia Subconjunctival anesthesia was used, Topical anesthesia was used. Anesthetic medications included Lidocaine 2%, Proparacaine 0.5%. The anesthesia lot number is [id number]. The expiration date is 10/2025. The manufacture of the medication is [employer]. Intravitreal Injection, Pharmacologic Agent Preparation included 5% betadine to ocular surface, 10% betadine to eyelids. A 30 gauge needle was used. Pharmaceutical Medication: 2 mg aflibercept syringe 2 mg/0.05 mL ??Route: intravitreal, Site: Right Eye ??[facility][NOTE 3]: 29131-348-20, Lot: [id number], Expiration date: 01/07/2026, Waste: 0 mL The [...] OU - Both Eyes (09/26/2024 11:49 AM BAG FILLER) Anatomical Region Laterality Modality Head Optical Coherenc e Tomography Narrative 09/26/2024 11:49 AM BAG FILLER Right Eye Quality was good. Scan locations [...] OD - Right Eye (08/22/2024 2:18 PM BAG FILLER) Anatomical Region Laterality Modality Head Other Narrative 08/22/2024 2:18 PM BAG FILLER Time Out Informed consent was obtained after all risks, benefits and alternatives were explained to the patient. The patient understood, agreed and wished to proceed. Timeout was completed verifying the patient, procedure, laterality and allergies. Anesthesia Subconjunctival anesthesia was used, Topical anesthesia was used. Anesthetic medications included Lidocaine 2%, Proparacaine 0.5%. The anesthesia lot number is [id number]. The expiration date is 11/2025. The manufacture of the medication is [employer]. Intravitreal Injection, Pharmacologic Agent Preparation included 5% betadine to ocular surface, 10% betadine to eyelids. A 30 gauge needle was used. Pharmaceutical Medication: 2 mg aflibercept syringe 2 mg/0.05 mL ??Route: intravitreal, Site: Right Eye ??[facility][NOTE 3]: 20354-010-71, Lot: [id number], Expiration date: 06/09/2025, Waste: 0 mL The [...] OU - Both Eyes (08/22/2024 1:47 PM BAG FILLER) Anatomical Region Laterality Modality Head Optical Coherenc e Tomography Narrative 08/22/2024 1:47 PM BAG FILLER Right Eye Quality was good. Scan locations [...] SCRIBED Triglycerides 71 <150 EXTERNAL LAB Blood Historical Provider LAB BLOOD ORDERABLES Edit ed Result - Final EXTERNAL LAB * (ABNORMAL) Comprehensive metabolic panel (08/09/2022 10:49 AM CDT) Glucose 139(H) 65 - 99 mg/dL [facility] Comment: ? Fasting reference interval For someone without known diabetes, a glucose value >125 mg/dL indicates that they may have diabetes and this should be confirmed with a follow-up test. BUN 12 7 - 25 mg/dL [facility] Creatinine 0.92 0.60 - 0.95 mg/dL [facility] eGFR 63 > OR = 60 mL/min/1. 73m2 [facility] Comment: The eGFR is based on the CKD-EPI 2020 equation. To calculate the new eGFR from a previous Creatinine or Cystatin C result, go to https://www.kidney.org/professionals/ kdoqi/gfr%5Fcalculator BUN/creat ratio NOT APPLICABLE 6 - 22 (calc) [facility] Sodium 136 135 - 146 mmol/L [facility] Potassium, pl 4.3 3.5 - 5.3 mmol/L [facility] Chloride 105 98 - 110 mmol/L [facility] CO2 26 20 - 32 mmol/L [facility] Calcium 9.0 8.6 - 10.4 mg/dL [facility] Protein, sr 6.3 6.1 - 8.1 g/dL [facility] Albumin 3.5(L) 3.6 - 5.1 g/dL [facility] GLOBULIN 2.8 1.9 - 3.7 g/dL (calc) [facility] Alb/glob ratio 1.3 1.0 - 2.5 (calc) [facility] Bilirubin, total 1.2 0.2 - 1.2 mg/dL [facility] Alk phos 57 37 - 153 U/L [facility] AST 18 10 - 35 U/L [facility] ALT (SGPT) 15 6 - 29 U/L [facility] Blood 08/09/2022 10:4 9 AM CDT 08/09/2022 10:50 AM CDT us Donte Leonard MD LAB BLOOD ORDERABLES Final Resul t [facility] [id number] [phone] from Last 3 Months or Most Recently Relevant to Health Maintenance Insurance MEDICARE [facility] FEDERAL MEDICARE [facility] FEDERAL MEDICARE [facility] Care Teams Corrosion Control Fitter Relationship Specialty Start Date End Date Cecilia López DO PCP - General Family Medicine 03/21/20
== END 2024-11-06 13:53 | disposition home or self-care (01) ==
LOC: ANHIMG 13:52
PROVIDERS: PCP Family Medicine; Visit Provider Family Medicine
DX: M85.88 Other specified disorders of bone density and structure, other site (principal); Z13.820 Encounter for screening for osteoporosis
CPT/HCPCS: 77080

== ENCOUNTER 2024-12-21 15:44 | Emergency (ER) | payer MEDICARE, BC, SELFPAY ==
--- NOTE | ~2024-12-21 | CT_ITS ---
CT of the Abdomen and Pelvis: Indication: Hematuria, abdominal pain Technique: 2.5 mm axial scans were obtained through the abdomen and pelvis prior to and following in travenous administration of 130 cc of Omnipaque 350. Dose reduction technique was used on this scan b y utilizing automated exposure control and iterative reconstruction technique. The dose-length produc t (DLP) was 665.15 mGy-cm. Findings: Scans through the lung bases demonstrate 6 mm left basilar pulmonary nodule (axial image 2 3).. The liver, spleen, pancreas, adrenals and kidneys are within normal limits. Small calcified gallstone s are present. There are extensive atherosclerotic calcifications of the aorta and iliac vessels. No lymphadenopathy. No bowel obstruction. There is probable wall thickening of the distal sigmoid colon and rectum. Images through the pelvis were performed. There is air within the urinary bladder, possibly iatrogeni c. Impression: No definite etiology for hematuria identified. Suspected wall thickening of the distal sigmoid colon and rectum. Correlate for infectious/inflammato ry colitis. Air in urinary bladder, possibly iatrogenic. Correlate for history of recent interventional procedure . Correlate for any possibility of bladder fistula. Cholelithiasis. Reviewed, dictated and finalized at location . Impression: No definite etiology for hematuria identified. Suspected wall thickening of the distal sigmoid colon and rectum. Correlate for infectious/inflammatory colitis. Air in urinary bladder, possibly iatrogenic. Correlate for history of recent in terventional procedure. Correlate for any possibility of bladder fistula. Cholelithiasis.
--- OUTSIDE RECORDS SUMMARY | 2024-12-21 15:47 | XMS_ITS ---
Author Organization [facility] al Address [address] [place] [address] Care Team Providers Care Personal Injury Law Specialist Name Role Phone Cecilia López DO Primary Care Provider [phone] Active Problems Problem Noted Date Diagnosed Date 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 Stock 6-8mos Assessment [...] as needed Coronary artery disease invo lving mechoopda coronary artery of mechoopda heart 06/23/2021 Overview (06/23/2021): Added automatically from request for surgery [id number] Advanced nonexudative age-re lated macular degeneration of [...] exam. Patient denies history of intravitreal injections. AREDS2 Amsler grid Assessment & Plan (04/11/2020 10:08 [...] , Less likely age-related macular degeneration (AMD). Optimal diabetes mellitus (DM) control discussed Assessment [...] PRN Assessment & Plan (11/14/2020 9:01 AM FORMWORK CARPENTER): OD Hx of superior edema - improved [...] q.day Continue latanoprost OU q.h.s. 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 Past Treatment and Therapy Plans No past plan information found. Lifetime Dose Tracking * Chemical Lifetime Dose [...] 07/18/201802/16 Assessment & Plan (10/17/2018 11:50 AM FORMWORK CARPENTER): -stable vision -continue preservative free dexamethasone once daily No intraocular inflammation or concern for rejection although fine vessels seen towards interface superior nasally -monitor with repeat exam in 3-6 months. 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 06/06/201802/16 Assessment & Plan (10/17/2018 11:50 AM FORMWORK CARPENTER): MCE superiorly, measured today -stable vision -continue [...]
--- OUTSIDE RECORDS SUMMARY | 2024-12-21 15:47 | XMS_ITS | Encounter Summary ---
Author Organization [facility] Address 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 Doc Garland MD [address] [place] [address] Other and Unspecified Angina Pectoris Social History Tobacco Use Types Packs/Day Years Used Date Smoking Tobacco: Never Assessed Comments Unknown Sex and Gender Information Value Date Recorded Sex Assigned at Not on file Legal Sex Female 5:36 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 [address] [email or web address] Cardiac Catheterization Comprehensive Report Patient: Didi Good Study ID: [id number] Gender: F : 1940 Age: 67 years Race: Room: Bed: Height: 66 in ( 167.6 cm ) Study Date: May 14, 2008 Patient status: Outpatient Weight: 152.9 lb ( 69.5 kg ) Access. #: [id number] POC: Attending MD: Catherine Morejon MD: Catherine Indications and History: INDICATIONS: Atypical [...] given 2.000 mg VERSED (IVP). NARRATIVE: - Right femoral artery access. Cardiac [...] 15:37:28 Procedure Note Provider, Historical - 05/14/2008 [place] [address] [place] [address] [email or web address] Cardiac Catheterization Comprehensive Report Patient: Didi Good Study ID: [id number] Gender: F : 1940 Age: 67 years Race: Room: Bed: Height: 66 in ( 167.6 cm ) Study Date: May 14, 2008 Patient status: Outpatient Weight: 152.9 lb ( 69.5 kg ) Access. #: [id number] POC: Attending MD: Catherine Morejon MD: Catherine Indications and History: INDICATIONS: Atypical [...]
--- OUTSIDE RECORDS SUMMARY | 2024-12-21 15:47 | XMS_ITS | Clinical Summary ---
Author Organization [facility] Address [address] 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
--- OUTSIDE RECORDS SUMMARY | 2024-12-21 15:47 | XMS_ITS | Encounter Summary ---
Author Organization [facility] Address [address] [place] [address] Phone Care Team Providers Care Systems Software Developer Name Role Phone Unknown, Notinfile Primary Care Provider Unavail able Stepan Stiles MD Primary Care Provider [phone] Cecilia López DO Primary Care Provider [phone] Encounter Details Date Type Department Care Team (Late st Contact Info) Description 12/13/2017 Orders Only [facility] ProviderJhony MD [address] [place] [id number] Social History Tobacco Use Types Packs/Day Years Used Date Smoking Tobacco: Never Comments Unknown Sex and Gender Information Value Date Recorded Sex Assigned at Not on file Legal Sex Female 2:56 AM BRIDAL STYLIST SALES CONSULTANT Gender Identity Not on file Sexual Orientation Not on file documented as of this encounter Plan of Treatment Not on file documented as of this encounter Procedures Procedure Name Priority Date/Time Associated Diagnosis Comments DISCHARGE LABORATORY CUMULATIVE REPORT 12/13/2017 12:00 AM BRIDAL STYLIST SALES CONSULTANT documented in this encounter Results * DISCHARGE LABORATORY CUMULATIVE REPORT (12/13/2017 12:00 AM BRIDAL STYLIST SALES CONSULTANT) Narrative 12/13/2017 12:00 AM BRIDAL STYLIST SALES CONSULTANT Ordered by an unspecified provider. Historical Provider LAB BLOOD ORDERABLES Eufemia l Result documented in this encounter Visit Diagnoses Not on filedocumented in this encounter Care Teams Systems Software Developer Relationship Specialty Start Date End Date Unknown, Notinfile PCP - General 12/13/17 01/02/18 Stepan Stiles MD [address] [place] [address] PCP - General 01/03/18 03/20/20 Cecilia López DO [address] [place] [address] PCP - General Family Medicine 03/21/20 documented as of this encounter
--- OUTSIDE RECORDS SUMMARY | 2024-12-21 15:47 | XMS_ITS | Referral Summary ---
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 Name Role Phone Cecilia López DO Primary Care Provider [phone] Encounters Date Type Department Care Team Description 12/13/2024 Telephone [facility] [address] [place] [id number] Nazanin Theodore MD PhD concerns prior to appt 12/12/2024 1:45 PM CIRCULATION DIRECTOR Office Visit [facility] [address] [place] [phone] Nazanin Theodore MD PhD Exudative age-related macular degeneration of right eye with active choroidal neovascularization (HCC) (Primary Dx) 12/05/2024 1:00 PM CIRCULATION DIRECTOR Office Visit [facility] [address] [facility] [address] [place] [phone] Donte Leonard MD Coronary artery disease involving [place] coronary artery of [place] heart with angina pectoris (Primary Dx); Status post angioplasty with stent; Mild aortic stenosis; Hypertension associated with diabetes (HCC) 10/31/2024 10:30 AM CIRCULATION DIRECTOR Office Visit [facility] [address] [place] [phone] Nazanin Theodore MD PhD Exudative age-related macular degeneration of right eye with active choroidal neovascularization (HCC) (Primary Dx) 09/26/2024 11:00 AM CIRCULATION DIRECTOR Office Visit [facility] [address] [facility] [place] [place] [address] [place] [address] Nazanin Theodore MD PhD Exudative age-related macular degeneration of right eye with active choroidal neovascularization (HCC) (Primary Dx); 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 from Last 3 Months Allergies No known active allergies Medications calcium carbonate-vit darling D3 1500 mg (600 mg elemental) -200 units per tablet Take 1 tablet by mouth daily Active omega 8-qnq-ckf-fis h oil 100-160-1,000 mg capsule Take 1 capsule by mouth daily Active insulin detemir U-100 (LEVEMIR) 100 unit/mL (3 mL) insulin pen Inject 8 Units under the skin nightly Active multivitamin tabletIndicat ions:Vitamin Deficiency Prevention Take 1 tablet by mouth daily Active omeprazole (PriLOSEC) 20 mg capsule Take 1 capsule (20 mg total) by mouth daily Active escitalopram (LEXAPRO) 20 mg tablet Take 1 tablet (20 mg total) by mouth daily 12/10/19 21 Active ferrous sulfate 325 mg (65 mg of elemental iron) tabletIndicat ions:Iron Deficiency Anemia Take 1 tablet (325 mg total) by mouth 2 (two) times a day with meals Active vit C,E-Zn-coppr- lutein-zeaxan 250-90-40-1 mg capsule Take 1 capsule by mouth 2 (two) times a day Active FreeStyle Test strip 2 (two) times a day 10/15/19 22 Active clopidogreL (PLAVIX) 75 mg tablet Take 1 tablet (75 mg total) by mouth daily 30 tablet 11 11/11/19 23 Active empagliflozin -metformin (Synjardy XR) 25-1,000 mg tablet, IR & ER, biphasic 24hr Take by mouth Active Novofine 32 32 gauge x 1/4 needle as directed 05/25/20 23 Active losartan (COZAAR) 50 mg tablet TAKE 1 TABLET(50 MG) BY MOUTH EVERY NIGHT 90 tablet 3 10/31/19 24 Active Additional Information Patient not taking.Reported on 12/12/2024 metoprolol XL (TOPROL-XL) 25 mg extended release tablet Take 0.5 tablets (12.5 mg total) by mouth daily 09/23/20 23 Active latanoprost (XALATAN) 0.005 % ophthalmic solution INSTILL 1 DROP IN BOTH EYES EVERY NIGHT 2.5 mL 11 02/28/20 24 Active dexAMETHasone (DECADRON) 0.1 % ophthalmic solution INSTILL 1 DROP INTO RIGHT EYE TWO TIMES DAILY AND 1 DROP INTO THE LEFT EYE ONCE DAILY 10 mL 3 03/15/20 24 Active acyclovir (ZOVIRAX) 800 mg tablet TAKE 1 TABLET(800 MG) BY MOUTH TWICE DAILY 180 tablet 1 09/04/20 24 Active amLODIPine (NORVASC) 10 mg tablet Take 1 tablet (10 mg total) by mouth nightly 90 tablet 6 12/05/19 25 Active atorvastatin (LIPITOR) 20 mg tablet TAKE 1 TABLET(20 MG) BY MOUTH EVERY NIGHT 90 tablet 1 12/11/19 25 Active alendronate (FOSAMAX) 70 mg tablet TAKE 1 TABLET BY MOUTH WEEKLY 11/08/19 25 Active cholecalcifer ol (VITAMIN D-3) 50,000 unit capsule Take 1 capsule (50,000 Units total) by mouth daily 025 Discontinued(Du plicate order) atorvastatin (LIPITOR) 20 mg tablet TAKE 1 TABLET(20 MG) BY MOUTH EVERY NIGHT 90 tablet 1 07/30/20 24 025 Discontinued amLODIPine (NORVASC) 5 mg tablet Take 1 tablet (5 mg total) by mouth daily 025 Discontinued(Al ternate therapy) Hospital, Clinic, or Other Facility Administered Medication Ordered Dose Route Frequency Start Date End Date Status aflibercept syringe (EYLEA) 2 mg/0.05 mL intraocular syringe 2 mgIndications:Exudative age-related macular degeneration of right eye with active choroidal neovascularization (HCC) 2 mg One-Time Injection 12/12/2024 5 Ended Active Problems Problem Noted Date Diagnosed Date 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 Theodore Keratitis, herpetic OD 02/03/2023 Assessment & Plan (07/05/2023 2:41 PM CDT): Scar reducing w/ central clearing RESIDENTIAL CARPENTER 20/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 Stock 6-8mos Assessment [...] as needed Coronary artery disease invo lving [place] coronary artery of [place] heart 06/23/2021 Overview (06/23/2021): Added automatically from request for surgery [id number] Advanced nonexudative age-re lated macular degeneration of [...] PRN Assessment & Plan (11/14/2020 9:01 AM CIRCULATION DIRECTOR): OD Hx of superior edema - improved [...] -monitor Assessment & Plan (10/17/2018 11:51 AM CIRCULATION DIRECTOR): Measured today -monitor Assessment & Plan (06/06/2018 12:01 PM CDT): Saw Dr Tejada, recommended observation Increased frequency of urination 12/13/2017 History of endometrial cancer 12/08/2016 Fuchs' corneal dystrophy 07/01/2016 Assessment & Plan (07/06/2022 3:42 PM CDT): 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 06/06/201802/16 Assessment & Plan (10/17/2018 11:50 AM CIRCULATION DIRECTOR): MCE superiorly, measured today -stable vision -continue [...] 07/01/2015 02/16/2019 H/O cornea transplant 11/19/20102018 Immunizations Immunization Administration Dates Next Due Influenza, Quadrivalent, Rec [...] on file Legal Sex Female 2:56 AM CIRCULATION DIRECTOR Gender Identity Not on file Sexual Orientation Not on file Last Filed Vital Signs Vital Sign Reading Time Taken Comments Blood Pressure 136/62 12/05/2024 12:56 PM CIRCULATION DIRECTOR Pulse 59 12/05/2024 12:56 PM CIRCULATION DIRECTOR Temperature 36.9 C (98.5 F) 02/16/2023 2:03 PM CDT Respiratory Rate 16 02/16/2023 2:03 PM CDT Oxygen Saturation 99% 12/05/2024 12: 56 PM CIRCULATION DIRECTOR Inhaled Oxygen Concentration - - Weight 55.7 kg (122 lb 12.8 oz) 025 12:56 PM CIRCULATION DIRECTOR Height 162.6 cm (5' 4 ) 12/05/2024 12:5 6 PM CIRCULATION DIRECTOR Body Mass Index 21.08 12/05/2024 12:56 PM CIRCULATION DIRECTOR Plan of Treatment Not on file Medical Devices Implanted Type Area Paraprofessional Education Assistant Device Identifier Shelf Expiration Date Model / Serial / Lot [employer] [id number] Catheter 3.5x12 Mm Shockwave C2 Ivl - [id number] Implanted:Qty: 1 on 07/03/2021 by Donte Leonard MD at [facility] [employer] 01/07/2023 [id number] / / [employer] [id number] Synergy 3.5mm 24mm 144cm Radiopaque 1 Access Port Inflation Lumen - [id number] Implanted:Qty: 1 on 07/03/2021 by Donte Leonard MD at [facility] [employer] 01/15/2023 [id number] / / [employer] Mynx Control 6-7fr 2 Mode Balloon Catheter Sealant Lock Syringe [id number] - [id number] Implanted:Qty: 1 on 08/12/2022 by Donte Leonard MD at [facility] [employer] 06/09/2024 [id number] / / [id number] Procedures Procedure Name Priority Date/Time Associated Diagnosis Comments INTRAVITREAL INJECTION, PHARMACOLOGIC AGENT - OD - RIGHT EYE Routine 12/12/2024 2:09 PM CIRCULATION DIRECTOR Exudative age-related macular degeneration of right eye with active choroidal neovascularization (HCC) OCT, RETINA - OU - BOTH EYES Routine 12/12/2024 2:09 PM CIRCULATION DIRECTOR Exudative age-related macular degeneration of right eye with active choroidal neovascularization (HCC) INTRAVITREAL INJECTION, PHARMACOLOGIC AGENT - OD - RIGHT EYE Routine 10/31/2024 12:17 PM CIRCULATION DIRECTOR Exudative age-related macular degeneration of right eye with active choroidal neovascularization (HCC) OCT, RETINA - OU - BOTH EYES Routine 10/31/2024 12:12 PM CIRCULATION DIRECTOR Exudative age-related macular degeneration of right eye with active choroidal neovascularization (HCC) INTRAVITREAL INJECTION, PHARMACOLOGIC AGENT - OD - RIGHT EYE Routine 09/26/2024 12:22 PM CIRCULATION DIRECTOR Exudative age-related macular degeneration of right eye with active choroidal neovascularization (HCC) OCT, RETINA - OU - BOTH EYES Routine 09/26/2024 11:49 AM CIRCULATION DIRECTOR 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 LIPID PANEL Routine 03/21/2024 11:49 AM CDT COMPREHENSIVE METABOLIC PANEL Routine 08/09/2022 10:49 AM CDT Coronary artery disease involving [place] coronary artery of [place] heart with angina pectoris Pre-procedure lab exam from Last 3 Months or Most Recently Relevant to Health Maintenance Results * Intravitreal Injection, Pharmacologic Agent - OD - Right Eye (12/12/2024 2:09 PM CIRCULATION DIRECTOR) Anatomical Region Laterality Modality Head Other Narrative 12/12/2024 2:09 PM CIRCULATION DIRECTOR Time Out Informed consent was obtained after all risks, benefits and alternatives were explained to the patient. The patient understood, agreed and wished to proceed. Timeout was completed verifying the patient, procedure, laterality and allergies. Anesthesia Subconjunctival anesthesia was used, Topical anesthesia was used. Anesthetic medications included Lidocaine 2%, Proparacaine 0.5%. The anesthesia lot number is [id number]. The expiration date is 11/09/25. The manufacture of the medication is [employer]. Intravitreal Injection, Pharmacologic Agent Preparation included 5% betadine to ocular surface, 10% betadine to eyelids. A 30 gauge needle was used. Pharmaceutical Medication: 2 mg aflibercept syringe 2 mg/0.05 mL Route: intravitreal, Site: Right Eye [facility]: 83038-885-90, Lot: [id number], Expiration date: 03/09/2026, Waste: 0 mL The medication administered today [...] Pt signed consent for BRENDAN OD 01/25/24 Nazanin Theodore MD PhD OPHTH CLINIC PROCEDU RES Final Result * OCT, Retina - OU - Both Eyes (12/12/2024 2:09 PM CIRCULATION DIRECTOR) Anatomical Region Laterality Modality Head Optical Coheren[employer] e Tomography Narrative 12/12/2024 2:09 PM CIRCULATION DIRECTOR Right Eye Quality was good. Scan locations included subfoveal. Progression has worsened. Findings include choroidal neovascular membrane, intraretinal fluid. Left Eye Quality was good. Scan locations included subfoveal. Progression has been stable. Findings include abnormal foveal contour. Notes Right eye (OD) stable without recurrent cystoid macular edema (CME) Left eye (OS): stable diffuse geographic atrophy, mild non central , nasal subretinal fluid Nazanin Theodore MD PhD OPHTH TOMOGRAPHY Fin al Result * Intravitreal Injection, Pharmacologic Agent - OD - Right Eye (10/31/2024 12:17 PM CIRCULATION DIRECTOR) Anatomical Region Laterality Modality Head Other Narrative 10/31/2024 12:17 PM CIRCULATION DIRECTOR Time Out Informed consent was obtained after all risks, benefits and alternatives were explained to the patient. The patient understood, agreed and wished to proceed. Timeout was completed verifying the patient, procedure, laterality and allergies. Anesthesia Subconjunctival anesthesia was used, Topical anesthesia was used. Anesthetic medications included Lidocaine 2%, Proparacaine 0.5%. The anesthesia lot number is [id number]. The expiration date is 11/09/25. The manufacture of the medication is [employer]. Intravitreal Injection, Pharmacologic Agent Preparation included 5% betadine to ocular surface, 10% betadine to eyelids. A supplied needle was used. Pharmaceutical Medication: 2 mg aflibercept syringe 2 mg/0.05 mL Route: intravitreal, Site: Right Eye [facility]: 00272-531-26, Lot: [id number], Expiration date: 02/06/2026, Waste: 0 mL The [...] Pt signed consent for BRENDAN OD 01/25/24 Nazanin Theodore MD PhD OPHTH CLINIC PROCEDU RES Final Result * OCT, Retina - OU - Both Eyes (10/31/2024 12:12 PM CIRCULATION DIRECTOR) Anatomical Region Laterality Modality Head Optical Coherenc e Tomography Narrative 10/31/2024 12:12 PM CIRCULATION DIRECTOR Right Eye Quality was good. Scan locations included subfoveal. Progression has worsened. Findings include choroidal neovascular membrane, intraretinal fluid. Left Eye Quality was good. Scan locations included subfoveal. Progression has been stable. Findings include abnormal foveal contour. Notes Right eye (OD) stable without recurrent cystoid macular edema (CME) Left eye (OS): stable diffuse geographic atrophy, mild non central , nasal subretinal fluid Nazanin Theodore MD PhD OPHTH TOMOGRAPHY Fin al Result * Intravitreal Injection, Pharmacologic Agent - OD - Right Eye (09/26/2024 12:22 PM CIRCULATION DIRECTOR) Anatomical Region Laterality Modality Head Other Narrative 09/26/2024 12:22 PM CIRCULATION DIRECTOR Time Out Informed consent was obtained after all risks, benefits and alternatives were explained to the patient. The patient understood, agreed and wished to proceed. Timeout was completed verifying the patient, procedure, laterality and allergies. Anesthesia Subconjunctival anesthesia was used, Topical anesthesia was used. Anesthetic medications included Lidocaine 2%, Proparacaine 0.5%. The anesthesia lot number is [id number]. The expiration date is 10/2025. The manufacture of the medication is [employer]. Intravitreal Injection, Pharmacologic Agent Preparation included 5% betadine to ocular surface, 10% betadine to eyelids. A 30 gauge needle was used. Pharmaceutical Medication: 2 mg aflibercept syringe 2 mg/0.05 mL Route: intravitreal, Site: Right Eye [facility]: 10459-664-98, Lot: [id number], Expiration date: 01/07/2026, Waste: 0 mL The [...] Pt signed consent for I'VE OD 01/25/24 Result [facility] Nazanin Theodore MD PhD OPHTH CLINIC PROCEDU RES Final Result * OCT, Retina - OU - Both Eyes (09/26/2024 11:49 AM CIRCULATION DIRECTOR) Anatomical Region Laterality Modality Head Optical Coherenc e Tomography Narrative 09/26/2024 11:49 AM CIRCULATION DIRECTOR Right Eye Quality was good. Scan locations included subfoveal. Progression has worsened. Findings include choroidal neovascular membrane, intraretinal fluid. Left Eye Quality was good. Scan locations included subfoveal. Progression has been stable. Findings include abnormal foveal contour. Notes Right eye (OD) stable without recurrent cystoid macular edema (CME) Left eye (OS): stable diffuse geographic atrophy, no cystoid macular edema (CME) or subretinal fluid Result [facility] Nazanin Theodore MD PhD OPHTH TOMOGRAPHY Fin al Result * Lipid panel (03/21/2024 11:49 AM CDT) SCRIBED Cholesterol, Total 83 <200 EXTERNAL LAB SCRIBED HDL 49 >40 EXTERNAL LAB SCRIBED LDL 19 <100 EXTERNAL LAB SCRIBED Triglycerides 71 <150 EXTERNAL LAB Blood Result [facility] Historical Provider LAB BLOOD ORDERABLES Edit ed Result - Final EXTERNAL LAB * (ABNORMAL) Comprehensive metabolic panel (08/09/2022 10:49 AM CDT) Glucose 139(H) 65 - 99 mg/dL [facility] Comment: Fasting reference interval For someone without known diabetes, a glucose value >125 mg/dL indicates that they may have diabetes and this should be confirmed with a follow-up test. BUN 12 7 - 25 mg/dL [facility] Creatinine 0.92 0.60 - 0.95 mg/dL [facility] eGFR 63 > OR = 60 mL/min/1. 73m2 [facility] Comment: The eGFR is based on the CKD-EPI 2020 equation. To calculate the new eGFR from a previous Creatinine or Cystatin C result, go to https://www.kidney.org/professionals/ kdoqi/gfr%5Fcalculator BUN/creat ratio NOT APPLICABLE 6 - 22 (calc) [facility] Sodium 136 135 - 146 mmol/L [facility] Potassium, pl 4.3 3.5 - 5.3 mmol/L [facility] Chloride 105 98 - 110 mmol/L [facility] CO2 26 20 - 32 mmol/L [facility] Calcium 9.0 8.6 - 10.4 mg/dL [facility] Protein, sr 6.3 6.1 - 8.1 g/dL [facility] Albumin 3.5(L) 3.6 - 5.1 g/dL [facility] GLOBULIN 2.8 1.9 - 3.7 g/dL (calc) [facility] Alb/glob ratio 1.3 1.0 - 2.5 (calc) [facility] Bilirubin, total 1.2 0.2 - 1.2 mg/dL [facility] Alk phos 57 37 - 153 U/L [facility] AST 18 10 - 35 U/L [facility] ALT (SGPT) 15 6 - 29 U/L [facility] Blood 08/09/2022 10:4 9 AM CDT 08/09/2022 10:50 AM CDT us Donte Leonard MD LAB BLOOD ORDERABLES Final Resul t [facility] [id number] [address] [place] [phone] from Last 3 Months or Most Recently Relevant to Health Maintenance Insurance MEDICARE [facility] MEDICARE [facility] Care Teams 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
--- OUTSIDE RECORDS SUMMARY | 2024-12-21 15:47 | XMS_ITS | Clinical Summary ---
Author Organization [facility] Address [address] [place] [address] Care Team Providers Care Fundraising Assistant Name Role Phone Cecilia López Primary Care Provider [phone]- [phone] Allergies No known active allergies Medications calcium carbonate-vit darling D3 1500 mg (600 mg elemental) -200 units per tablet Take 1 tablet by mouth daily Active omega 0-xab-ckx-fis h oil 100-160-1,000 mg capsule Take 1 [...] PM CDT): Scar reducing w/ central clearing [employer] 20/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 Stock 6-8mos Assessment [...] as needed Coronary artery disease invo lving [place] coronary artery of [place] heart 06/23/2021 Overview (06/23/2021): Added automatically from request for surgery [id number] Advanced nonexudative age-re lated macular degeneration of [...] PRN Assessment & Plan (11/14/2020 9:01 AM FIRST AID DIRECTOR): OD Hx of superior edema - [...] -monitor Assessment & Plan (10/17/2018 11:51 AM FIRST AID DIRECTOR): Measured today -monitor Assessment & Plan [...] 07/18/201802/16 Assessment & Plan (10/17/2018 11:50 AM FIRST AID DIRECTOR): -stable vision -continue preservative free dexamethasone once daily No intraocular inflammation or concern for rejection although fine vessels seen towards interface superior nasally -monitor with repeat exam in 3-6 months. 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 06/06/201802/16 Assessment & Plan (10/17/2018 11:50 AM FIRST AID DIRECTOR): MCE superiorly, measured today -stable vision [...] Type Department Care Team Description 12/13/2024 Telephone [facility] Ophthalmology [address] [place] [id number] Nazanin Theodore MD PhD concerns prior to appt 12/12/2024 1:45 PM FIRST AID DIRECTOR Office Visit [facility] Op[facility] Outpatient [address] [address] Nazanin Theodore MD PhD Exudative age-related macular degeneration of right eye with active choroidal neovascularization (HCC) (Primary Dx) 12/05/2024 1:00 PM FIRST AID DIRECTOR Office Visit [facility] [address] [place] [address] Donte Leonard MD Coronary artery disease involving [place] coronary artery of [place] heart with angina pectoris (Primary Dx); Status post angioplasty with stent; Mild aortic stenosis; Hypertension associated with diabetes (HCC) 10/31/2024 10:30 AM FIRST AID DIRECTOR Office Visit [facility] [address] [address] Nazanin Theodore MD PhD Exudative age-related macular degeneration of right eye with active choroidal neovascularization (HCC) (Primary Dx) 09/26/2024 11:00 AM FIRST AID DIRECTOR Office Visit [facility] Ophthalmology [address] [facility] [address] [place] [address] Nazanin Theodore MD PhD Exudative age-related macular degeneration of right eye with active choroidal neovascularization (HCC) (Primary Dx); 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 from Last 3 Months Immunizations Immunization Administration Dates Next Due Influenza, Quadrivalent, Rec ombinant, Egg Free, Preservative Free, Intramuscular 07/23/2021,07/18/2020,06/27/2019 Influenza, Trivalent, High D ose, Split, Preservative Free, Intramuscular 06/01/2018 Influenza, Unspecified 07/19/2018,07/19/2018 Pneumococcal, Unspecified 07/19/2018,07/19/2018 Surgical History Surgery Date Site/Laterality Comments MD COLONOSCOPY FLX DX W/COLLJ SPEC WHEN PFRMD Complete Colonoscopy - (Added by Conv) MD EXC CYST/ABERRANT BREAST TISSUE OPEN 1/> LESION Breast Surgery Lumpectomy - (Added by TW Conv) CATARACT EXTRACTION Bilateral EAR SURGERY Right [...] of uterus Uterine Cancer - (Added by T W Conv) Personal history of other sp ecified conditions History of breast lump - (Ad ded by TW Conv) Arthritis Diabetes mellitus (HCC) Glaucoma Fuchs' corneal dystrophy Ocular migraine Hypertension Hyperlipidemia Cancer (HCC) vaginal cuff 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 Anemia Type 2 diabetes mellitus (HCC) Macular degeneration of left eye SOB (shortness of breath) CAD (coronary artery disease) Frequent urination at night Diarrhea [place] (hard of hearing) Family History Medical History Relation Name Comments Heart failure Father Cardiac Failur e - (Added by TW Conv) Breast cancer Mother Breast Cancer - (Added by TW Conv) Cancer Mother Cataracts Mother Diabetes Mother Diabetes Mellit us - (Added by TW Conv) Fuchs' dystrophy Mother Heart failure Mother Cardiac Failur e - (Added by TW Conv) Relation Name Status Comments Father (Age [...] on file Legal Sex Female 2:56 AM FIRST AID DIRECTOR Gender Identity Not on file Sexual Orientation Not on file Obstetrics History Para Term AB IAB SAB Ectopic Multiple Livin g Live Births 3 3 3 3 Date Outcome GA Total Labor Labor/2nd/3rd Weight Sex Type Anes PTL Fadumo A1 A5 Name Clin Term Term Term Last Filed Vital Signs Vital Sign Reading Time Taken Comments Blood Pressure 136/62 12/05/2024 12:56 PM FIRST AID DIRECTOR Pulse 59 12/05/2024 12:56 PM FIRST AID DIRECTOR Temperature 36.9 C (98.5 F) 02/16/2023 2:03 PM CDT Respiratory Rate 16 02/16/2023 2:03 PM CDT Oxygen Saturation 99% 12/05/2024 12: 56 PM FIRST AID DIRECTOR Inhaled Oxygen Concentration - - Weight 55.7 kg (122 lb 12.8 oz) 025 12:56 PM FIRST AID DIRECTOR Height 162.6 cm (5' 4 ) 12/05/2024 12:5 6 PM FIRST AID DIRECTOR Body Mass Index 21.08 12/05/2024 12:56 PM FIRST AID DIRECTOR Plan of Treatment Health Maintenance Due Date Last Done Comments Albumin Creatinine Ratio, Urine 1940 Depression Screening 1940 Hemoglobin A1C 1940 Osteoporosis Screening-Bone Density Scan 1940 Foot Exam 1940 DTaP/Tdap/Td Vaccine (1 - Tdap) 1951 Hepatitis B Screening 1958 Pneumococcal vaccine 65+ (1 of 2 - PCV) 1959 07/19/2018, 07/19/2018 Zoster Vaccine (1 of 2) 1990 Well Visit 65+ 2005 eGFR 08/09/2023 08/09/2022, 06/11, 06/19/2021, Additional history exists Fall Risk Assessment 08/12/2023 08/12/2022, 07/15/20 21 Dilated Eye Exam 11/10/2023 11/10/2022, , 07/06/2022, Additional history exists Covid-19 Vaccine (2023-2 5 season) 2024 03/26/2022, 09/18/2021, 01/02/2021, Additional history exists Influenza Vaccine (#1) 2024 , 07/18/2020, 06/27/2019, Additional history exists Lipid Panel 03/21/2025 03/21/2024, 0604/2023, 07/23/2022, Additional history exists Medical Devices Implanted Type [employer] Director Device Identifier Shelf Expiration Date Model / Serial / Lot [employer] [id number] Catheter 3.5x12 Mm Shockwave C2 Ivl - [id number] Implanted:Qty: 1 on 07/03/2021 by Donte Leonard MD at [facility] 01/07/2023 [id number] / / [employer] [id number] Synergy 3.5mm 24mm 144cm Radiopaque 1 Access Port Inflation Lumen - [id number] Implanted:Qty: 1 on 07/03/2021 by Donte Leonard MD at [facility] [employer] 01/15/2023 [id number] / / [employer] Mynx Control 6-7fr 2 Mode Balloon Catheter Sealant Lock Syringe [id number] - [id number] Implanted:Qty: 1 on 08/12/2022 by Donte Leonard MD at [facility] [employer] 06/09/2024 [id number] / / [id number] Procedures Procedure Name Priority Date/Time Associated Diagnosis Comments INTRAVITREAL INJECTION, PHARMACOLOGIC AGENT - OD - RIGHT EYE Routine 12/12/2024 2:09 PM FIRST AID DIRECTOR Exudative age-related macular degeneration of right eye with active choroidal neovascularization (HCC) OCT, RETINA - OU - BOTH EYES Routine 12/12/2024 2:09 PM FIRST AID DIRECTOR Exudative age-related macular degeneration of right eye with active choroidal neovascularization (HCC) INTRAVITREAL INJECTION, PHARMACOLOGIC AGENT - OD - RIGHT EYE Routine 10/31/2024 12:17 PM FIRST AID DIRECTOR Exudative age-related macular degeneration of right eye with active choroidal neovascularization (HCC) OCT, RETINA - OU - BOTH EYES Routine 10/31/2024 12:12 PM FIRST AID DIRECTOR Exudative age-related macular degeneration of right eye with active choroidal neovascularization (HCC) INTRAVITREAL INJECTION, PHARMACOLOGIC AGENT - OD - RIGHT EYE Routine 09/26/2024 12:22 PM FIRST AID DIRECTOR Exudative age-related macular degeneration of right eye with active choroidal neovascularization (HCC) OCT, RETINA - OU - BOTH EYES Routine 09/26/2024 11:49 AM FIRST AID DIRECTOR 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 LIPID PANEL Routine 03/21/2024 11:49 AM CDT COMPREHENSIVE METABOLIC PANEL Routine 08/09/2022 10:49 AM CDT Coronary artery disease involving [place] coronary artery of [place] heart with angina pectoris Pre-procedure lab exam from Last 3 Months or Most Recently Relevant to Health Maintenance Results * Intravitreal Injection, Pharmacologic Agent - OD - Right Eye (12/12/2024 2:09 PM FIRST AID DIRECTOR) Anatomical Region Laterality Modality Head Other Narrative 12/12/2024 2:09 PM FIRST AID DIRECTOR Time Out Informed consent was obtained after all risks, benefits and alternatives were explained to the patient. The patient understood, agreed and wished to proceed. Timeout was completed verifying the patient, procedure, laterality and allergies. Anesthesia Subconjunctival anesthesia was used, Topical anesthesia was used. Anesthetic medications included Lidocaine 2%, Proparacaine 0.5%. The anesthesia lot number is [id number]. The expiration date is 11/09/25. The manufacture of the medication is Software 2000. Intravitreal Injection, Pharmacologic Agent Preparation included 5% betadine to ocular surface, 10% betadine to eyelids. A 30 gauge needle was used. Pharmaceutical Medication: 2 mg aflibercept syringe 2 mg/0.05 mL Route: intravitreal, Site: Right Eye [facility]: 00369-648-37, Lot: [id number], Expiration date: 03/09/2026, Waste: 0 mL The [...] OU - Both Eyes (12/12/2024 2:09 PM FIRST AID DIRECTOR) Anatomical Region Laterality Modality Head Optical Coherenc e Tomography Narrative 12/12/2024 2:09 PM FIRST AID DIRECTOR Right Eye Quality was good. Scan [...] OD - Right Eye (10/31/2024 12:17 PM FIRST AID DIRECTOR) Anatomical Region Laterality Modality Head Other Narrative 10/31/2024 12:17 PM FIRST AID DIRECTOR Time Out Informed consent was obtained after all risks, benefits and alternatives were explained to the patient. The patient understood, agreed and wished to proceed. Timeout was completed verifying the patient, procedure, laterality and allergies. Anesthesia Subconjunctival anesthesia was used, Topical anesthesia was used. Anesthetic medications included Lidocaine 2%, Proparacaine 0.5%. The anesthesia lot number is [id number]. The expiration date is 11/09/25. The manufacture of the medication is Software 2000. Intravitreal Injection, Pharmacologic Agent Preparation included 5% betadine to ocular surface, 10% betadine to eyelids. A supplied needle was used. Pharmaceutical Medication: 2 mg aflibercept syringe 2 mg/0.05 mL Route: intravitreal, Site: Right Eye [facility] [place]: [id number], Lot: [id number], Expiration date: 02/06/2026, Waste: 0 mL The [...] OU - Both Eyes (10/31/2024 12:12 PM FIRST AID DIRECTOR) Anatomical Region Laterality Modality Head Optical Coherenc e Tomography Narrative 10/31/2024 12:12 PM FIRST AID DIRECTOR Right Eye Quality was good. Scan [...] OD - Right Eye (09/26/2024 12:22 PM FIRST AID DIRECTOR) Anatomical Region Laterality Modality Head Other Narrative 09/26/2024 12:22 PM FIRST AID DIRECTOR Time Out Informed consent was obtained after all risks, benefits and alternatives were explained to the patient. The patient understood, agreed and wished to proceed. Timeout was completed verifying the patient, procedure, laterality and allergies. Anesthesia Subconjunctival anesthesia was used, Topical anesthesia was used. Anesthetic medications included Lidocaine 2%, Proparacaine 0.5%. The anesthesia lot number is [id number]. The expiration date is 10/2025. The manufacture of the medication is [employer]. Intravitreal Injection, Pharmacologic Agent Preparation included 5% betadine to ocular surface, 10% betadine to eyelids. A 30 gauge needle was used. Pharmaceutical Medication: 2 mg aflibercept syringe 2 mg/0.05 mL Route: intravitreal, Site: Right Eye [facility] [place]: 56506-789-47, Lot: [id number], Expiration date: 01/07/2026, Waste: 0 mL The [...] OU - Both Eyes (09/26/2024 11:49 AM FIRST AID DIRECTOR) Anatomical Region Laterality Modality Head Optical Coherenc e Tomography Narrative 09/26/2024 11:49 AM FIRST AID DIRECTOR Right Eye Quality was good. Scan [...] 139(H) 65 - 99 mg/dL [facility] Comment: Fasting reference interval For someone without known diabetes, a glucose value >125 mg/dL indicates that they may have diabetes and this should be confirmed with a follow-up test. BUN 12 7 - 25 mg/dL [facility] Creatinine 0.92 0.60 - 0.95 mg/dL [facility] eGFR 63 > OR = 60 mL/min/1. 73m2 [facility] Comment: The eGFR is based on the CKD-EPI 202 equation. To calculate the new eGFR from a previous Creatinine or Cystatin C result, go to https://www.kidney.org/professionals/ kdoqi/gfr%5Fcalculator BUN/creat ratio NOT APPLICABLE 6 - 22 (calc) [facility] Sodium 136 135 - 146 mmol/L [facility] Potassium, pl 4.3 3.5 - 5.3 mmol/L [facility] Chloride 105 98 - 110 mmol/L [facility] CO2 26 20 - 32 mmol/L [facility] Calcium 9.0 8.6 - 10.4 mg/dL [facility] Protein, sr 6.3 6.1 - 8.1 g/dL [facility] Albumin 3.5(L) 3.6 - 5.1 g/dL [facility] GLOBULIN 2.8 1.9 - 3.7 g/dL (calc) [facility] Alb/glob ratio 1.3 1.0 - 2.5 (calc) [facility] Bilirubin, total 1.2 0.2 - 1.2 mg/dL [facility] Alk phos 57 37 - 153 U/L [facility] AST 18 10 - 35 U/L [facility] ALT (SGPT) 15 6 - 29 U/L [facility] Blood 08/09/2022 10:4 9 AM CDT 08/09/2022 10:50 AM CDT Donte Leonard MD LAB BLOOD ORDERABLES Final Resul t [facility] [address] [place] [address] from Last 3 Months or Most Recently Relevant to Health Maintenance Insurance MEDICARE [facility] MEDICARE [facility] MEDICARE [facility] Care Teams Fundraising Assistant Relationship Specialty Start Date End Date Cecilia López DO PCP - General Family Medicine 03/21/20
[2024-12-21 16:33] VITALS: BP 154/50; PULSE 76; RESP 16; TEMP 36.9; O2SAT 98
[2024-12-21 16:55] LABS: Add Urine Microscopic? YES; Appearance Urine Turbid (Clear); Color Urine Red (Yellow)
[2024-12-21 17:12] LABS: Bacteria Urine None Seen /hpf; Budding Yeast Urine Present /hpf; Need Manual Microscopic Reviewed; Non Pathogenic Casts 0-2; Squamous Epithelial Cell Urine Few /hpf (Few); WBC Urine >100 /hpf (0-3)
[2024-12-21 17:13] LABS: RBC Urine >100 /hpf (0-2)
--- OUTSIDE RECORDS SUMMARY | 2024-12-22 01:33 | XMS_ITS | Encounter Summary ---
Author Organization [facility] Address 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 Doc Garland MD [address] [facility] [address] [place] [address] Other and Unspecified Angina Pectoris Social History Tobacco Use Types Packs/Day Years Used Date Smoking Tobacco: Never Assessed Comments Unknown Sex and Gender Information Value Date Recorded Sex Assigned at Not on file Legal Sex Female 5:36 AM FINISH CARPENTER Gender Identity Not on file Sexual Orientation Not on file documented as of this encounter Plan of Treatment Not on file documented as of this encounter Procedures Procedure Name Priority Date/Time Associated Diagnosis Comments CL CORONARY ANGIOGRAM Routine 05/14/2008 3:55 PM CDT documented in this encounter Results * CL CORONARY ANGIOGRAM (05/14/2008 3:55 PM CDT) Narrative INTERFACE SYSTEM - 05/14/2008 3:55 PM CDT [facility] [address] [place] [address] [email or web address] Cardiac Catheterization Comprehensive Report Patient: Didi Good Study ID: [id number] Gender: F : 1940 Age: 67 years Race: Room: Bed: Height: 66 in ( 167.6 cm ) Study Date: May 14, 2008 Patient status: Outpatient Weight: 152.9 lb ( 69.5 kg ) Access. #: [id number] POC: Attending MD: Catherine Morejon MD: Catherine [...] 15:37:28 Procedure Note Provider, Historical - 05/14/2008 [place] [address] [place] [address] [email or web address] Cardiac Catheterization Comprehensive Report Patient: Didi Good Study ID: [id number] Gender: F : 1940 Age: 67 years Race: Room: Bed: Height: 66 in ( 167.6 cm ) Study Date: May 14, 2008 Patient status: Outpatient Weight: 152.9 lb ( 69.5 kg ) Access. #: [id number] POC: Attending MD: Catherine Morejon MD: Catherine [...]
--- OUTSIDE RECORDS SUMMARY | 2024-12-22 01:33 | XMS_ITS | Referral Summary ---
Author Organization [facility] al Address [address] [place] [address] Care Team Providers Care Meter Mechanic Name Role Phone Cecilia López DO Primary Care Provider [phone]- [phone] Encounters Date Type Department Care Team Description 12/13/2024 Telephone [facility] Ophthalmology [address] [place] [address] Nazanin Theodore MD PhD concerns prior to appt 12/12/2024 1:45 PM WOOD CUTTER Office Visit [facility] Ophthalmology [address] [place] [phone] Nazanin Theodore MD PhD Exudative age-related macular degeneration of right eye with active choroidal neovascularization (HCC) (Primary Dx) 12/05/2024 1:00 PM WOOD CUTTER Office Visit [facility] Card[facility] [address] [facility] [address] [place] [id number] Donte Leonard MD Coronary artery disease involving [place] coronary artery of [place] heart with angina pectoris (Primary Dx); Status post angioplasty with stent; Mild aortic stenosis; Hypertension associated with diabetes (HCC) 10/31/2024 10:30 AM WOOD CUTTER Office Visit [facility] Ophthalmology [facility] [address] [place] [phone] Nazanin Theodore MD PhD Exudative age-related macular degeneration of right eye with active choroidal neovascularization (HCC) (Primary Dx) 09/26/2024 11:00 AM WOOD CUTTER Office Visit [facility] Ophthalmology [address] [facility] 6th [place] [address] Nazanin Theodore MD PhD Exudative age-related macular degeneration of right eye with active choroidal neovascularization (HCC) (Primary Dx); 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 from Last 3 Months Allergies No known active allergies Medications calcium carbonate-vit darling D3 1500 mg (600 mg elemental) -200 units per tablet Take 1 tablet by mouth daily Active omega 6-eai-hzc-fis h oil 100-160-1,000 mg capsule Take 1 [...] PM CDT): Scar reducing w/ central clearing [employer]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 Stock 6-8mos Assessment [...] as needed Coronary artery disease invo lving [place] coronary artery of [place] heart 06/23/2021 Overview (06/23/2021): Added automatically from request for surgery [id number] Advanced nonexudative age-re lated macular degeneration of [...] PRN Assessment & Plan (11/14/2020 9:01 AM WOOD CUTTER): OD Hx of superior edema - improved [...] -monitor Assessment & Plan (10/17/2018 11:51 AM WOOD CUTTER): Measured today -monitor Assessment & Plan (06/06/2018 [...] 07/18/201802/16 Assessment & Plan (10/17/2018 11:50 AM WOOD CUTTER): -stable vision -continue preservative free dexamethasone once daily No intraocular inflammation or concern for rejection although fine vessels seen towards interface superior nasally -monitor with repeat exam in 3-6 months. 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 06/06/201802/16 Assessment & Plan (10/17/2018 11:50 AM WOOD CUTTER): MCE superiorly, measured today -stable vision -continue [...] on file Legal Sex Female 2:56 AM WOOD CUTTER Gender Identity Not on file Sexual Orientation Not on file Last Filed Vital Signs Vital Sign Reading Time Taken Comments Blood Pressure 136/62 12/05/2024 12:56 PM WOOD CUTTER Pulse 59 12/05/2024 12:56 PM WOOD CUTTER Temperature 36.9 C (98.5 F) 02/16/2023 2:03 PM CDT Respiratory Rate 16 02/16/2023 2:03 PM CDT Oxygen Saturation 99% 12/05/2024 12: 56 PM WOOD CUTTER Inhaled Oxygen Concentration - - Weight 55.7 kg (122 lb 12.8 oz) 025 12:56 PM WOOD CUTTER Height 162.6 cm (5' 4 ) 12/05/2024 12:5 6 PM WOOD CUTTER Body Mass Index 21.08 12/05/2024 12:56 PM WOOD CUTTER Plan of Treatment Not on file Medical Devices Implanted Type Area Tube Operator Device Identifier Shelf Expiration Date Model / Serial / Lot [employer] [id number] Catheter 3.5x12 Mm Shockwave C2 Ivl - [id number] Implanted:Qty: 1 on 07/03/2021 by Donte Leonard MD at [facility] [employer] 01/07/2023 [id number] / / [employer] [id number] Synergy 3.5mm 24mm 144cm Radiopaque 1 Access Port Inflation Lumen - [id number] Implanted:Qty: 1 on 07/03/2021 by Donte Leonard MD at [facility] [employer] 01/15/2023 [id number] / / [employer] Mynx Control 6-7fr 2 Mode Balloon Catheter Sealant Lock Syringe [id number] - [id number] Implanted:Qty: 1 on 08/12/2022 by Donte Leonard MD at [facility] [employer] 06/09/2024 [id number] / / [id number] Procedures Procedure Name Priority Date/Time Associated Diagnosis Comments INTRAVITREAL INJECTION, PHARMACOLOGIC AGENT - OD - RIGHT EYE Routine 12/12/2024 2:09 PM WOOD CUTTER Exudative age-related macular degeneration of right eye with active choroidal neovascularization (HCC) OCT, RETINA - OU - BOTH EYES Routine 12/12/2024 2:09 PM WOOD CUTTER Exudative age-related macular degeneration of right eye with active choroidal neovascularization (HCC) INTRAVITREAL INJECTION, PHARMACOLOGIC AGENT - OD - RIGHT EYE Routine 10/31/2024 12:17 PM WOOD CUTTER Exudative age-related macular degeneration of right eye with active choroidal neovascularization (HCC) OCT, RETINA - OU - BOTH EYES Routine 10/31/2024 12:12 PM WOOD CUTTER Exudative age-related macular degeneration of right eye with active choroidal neovascularization (HCC) INTRAVITREAL INJECTION, PHARMACOLOGIC AGENT - OD - RIGHT EYE Routine 09/26/2024 12:22 PM WOOD CUTTER Exudative age-related macular degeneration of right eye with active choroidal neovascularization (HCC) OCT, RETINA - OU - BOTH EYES Routine 09/26/2024 11:49 AM WOOD CUTTER 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 LIPID PANEL Routine 03/21/2024 11:49 AM CDT COMPREHENSIVE METABOLIC PANEL Routine 08/09/2022 10:49 AM CDT Coronary artery disease involving [place] coronary artery of [place] heart with angina pectoris Pre-procedure lab exam from Last 3 Months or Most Recently Relevant to Health Maintenance Results * Intravitreal Injection, Pharmacologic Agent - OD - Right Eye (12/12/2024 2:09 PM WOOD CUTTER) Anatomical Region Laterality Modality Head Other Narrative 12/12/2024 2:09 PM WOOD CUTTER Time Out Informed consent was obtained after all risks, benefits and alternatives were explained to the patient. The patient understood, agreed and wished to proceed. Timeout was completed verifying the patient, procedure, laterality and allergies. Anesthesia Subconjunctival anesthesia was used, Topical anesthesia was used. Anesthetic medications included Lidocaine 2%, Proparacaine 0.5%. The anesthesia lot number is [id number]. The expiration date is 11/09/25. The manufacture of the medication is [employer]. Intravitreal Injection, Pharmacologic Agent Preparation included 5% betadine to ocular surface, 10% betadine to eyelids. A 30 gauge needle was used. Pharmaceutical Medication: 2 mg aflibercept syringe 2 mg/0.05 mL Route: intravitreal, Site: Right Eye [facility]: [id number], Lot: [id number], Expiration date: 03/09/2026, Waste: 0 mL The [...] OU - Both Eyes (12/12/2024 2:09 PM WOOD CUTTER) Anatomical Region Laterality Modality Head Optical Coherenc e Tomography Narrative 12/12/2024 2:09 PM WOOD CUTTER Right Eye Quality was good. Scan locations [...] OD - Right Eye (10/31/2024 12:17 PM WOOD CUTTER) Anatomical Region Laterality Modality Head Other Narrative 10/31/2024 12:17 PM WOOD CUTTER Time Out Informed consent was obtained after all risks, benefits and alternatives were explained to the patient. The patient understood, agreed and wished to proceed. Timeout was completed verifying the patient, procedure, laterality and allergies. Anesthesia Subconjunctival anesthesia was used, Topical anesthesia was used. Anesthetic medications included Lidocaine 2%, Proparacaine 0.5%. The anesthesia lot number is [id number]. The expiration date is 11/09/25. The manufacture of the medication is [employer] Intravitreal Injection, Pharmacologic Agent Preparation included 5% betadine to ocular surface, 10% betadine to eyelids. A supplied needle was used. Pharmaceutical Medication: 2 mg aflibercept syringe 2 mg/0.05 mL Route: intravitreal, Site: Right Eye [facility]: 55339-587-59, Lot: [id number], Expiration date: 02/06/2026, Waste: 0 mL The [...] OU - Both Eyes (10/31/2024 12:12 PM WOOD CUTTER) Anatomical Region Laterality Modality Head Optical Coherenc e Tomography Narrative 10/31/2024 12:12 PM WOOD CUTTER Right Eye Quality was good. Scan locations [...] OD - Right Eye (09/26/2024 12:22 PM WOOD CUTTER) Anatomical Region Laterality Modality Head Other Narrative 09/26/2024 12:22 PM WOOD CUTTER Time Out Informed consent was obtained after all risks, benefits and alternatives were explained to the patient. The patient understood, agreed and wished to proceed. Timeout was completed verifying the patient, procedure, laterality and allergies. Anesthesia Subconjunctival anesthesia was used, Topical anesthesia was used. Anesthetic medications included Lidocaine 2%, Proparacaine 0.5%. The anesthesia lot number is [id number]. The expiration date is 10/2025. The manufacture of the medication is [employer] Intravitreal Injection, Pharmacologic Agent Preparation included 5% betadine to ocular surface, 10% betadine to eyelids. A 30 gauge needle was used. Pharmaceutical Medication: 2 mg aflibercept syringe 2 mg/0.05 mL Route: intravitreal, Site: Right Eye [facility]: 35043-645-64, Lot: [id number], Expiration date: 01/07/2026, Waste: 0 mL The [...] signed consent for I'VE OD 01/25/24 Result [facility] Nazanin Theodore MD PhD OPHTH CLINIC PROCEDU RES Final Result * OCT, Retina - OU - Both Eyes (09/26/2024 11:49 AM WOOD CUTTER) Anatomical Region Laterality Modality Head Optical Coherenc e Tomography Narrative 09/26/2024 11:49 AM WOOD CUTTER Right Eye Quality was good. Scan locations [...] macular edema (CME) or subretinal fluid Result [facility] Nazanin Theodore MD PhD OPHTH TOMOGRAPHY Fin al Result * Lipid panel (03/21/2024 11:49 AM CDT) SCRIBED Cholesterol, Total 83 <200 EXTERNAL LAB SCRIBED HDL 49 >40 EXTERNAL LAB SCRIBED LDL 19 <100 EXTERNAL LAB SCRIBED Triglycerides 71 <150 EXTERNAL LAB Blood Result [facility] Historical Provider LAB BLOOD ORDERABLES Edit ed Result - Final EXTERNAL LAB * (ABNORMAL) Comprehensive metabolic panel (08/09/2022 10:49 AM CDT) Glucose 139(H) 65 - 99 mg/dL [facility] Comment: Fasting reference interval For someone without known diabetes, a glucose value >125 mg/dL indicates that they may have diabetes and this should be confirmed with a follow-up test. BUN 12 7 - 25 mg/dL [facility] Creatinine 0.92 0.60 - 0.95 mg/dL [facility] eGFR 63 > OR = 60 mL/min/1. 73m2 [facility] Comment: The eGFR is based on the CKD-EPI 2020 equation. To calculate the new eGFR from a previous Creatinine or Cystatin C result, go to https://www.kidney.org/professionals/ kdoqi/gfr%5Fcalculator BUN/creat ratio NOT APPLICABLE 6 - 22 (calc) [facility] Sodium 136 135 - 146 mmol/L [facility] Potassium, pl 4.3 3.5 - 5.3 mmol/L [facility] Chloride 105 98 - 110 mmol/L [facility] CO2 26 20 - 32 mmol/L [facility] Calcium 9.0 8.6 - 10.4 mg/dL [facility] Protein, sr 6.3 6.1 - 8.1 g/dL [facility] Albumin 3.5(L) 3.6 - 5.1 g/dL [facility] GLOBULIN 2.8 1.9 - 3.7 g/dL (calc) [facility] Alb/glob ratio 1.3 1.0 - 2.5 (calc) [facility] Bilirubin, total 1.2 0.2 - 1.2 mg/dL [facility] Alk phos 57 37 - 153 U/L [facility] AST 18 10 - 35 U/L [facility] ALT (SGPT) 15 6 - 29 U/L [facility] Blood 08/09/2022 10:4 9 AM CDT 08/09/2022 10:50 AM CDT us Donte Leonard MD LAB BLOOD ORDERABLES Final Resul t [facility] [id number] [address] [id number] from Last 3 Months or Most Recently Relevant to Health Maintenance Insurance MEDICARE [facility] MEDICARE [facility] MEDICARE [facility] Care Teams Meter Mechanic Relationship Specialty Start Date End Date Cecilia López DO PCP - General Family Medicine 03/21/20
--- OUTSIDE RECORDS SUMMARY | 2024-12-22 01:33 | XMS_ITS | Clinical Summary ---
Author Organization [facility] Address [address] [place]: Epic Prelude ADT [place] [address] Care Team Providers Care Registered Art Therapist Name Role Phone Unavailable Primary Care Provider Unavailabl e Social History Tobacco Use Types Packs/Day Years Used Date Smoking Tobacco: Never Assessed Comments Unknown Sex and Gender Information Value Date Recorded Sex Assigned at Not on file Legal Sex Female 5:36 AM RESEARCH AND DEVELOPMENT SCIENTIST Gender Identity Not on file Sexual Orientation [...]
--- OUTSIDE RECORDS SUMMARY | 2024-12-22 01:33 | XMS_ITS | Encounter Summary ---
Author Organization [facility] Address [address] [place] [address] Phone Care Team Providers Care Tire Curer Name Role Phone Unknown, Notinfile Primary Care Provider Unavail able Stepan Stiles MD Primary Care Provider [phone] Cecilia López DO Primary Care Provider [phone]- [phone] Encounter Details Date Type Department Care Team (Late st Contact Info) Description 12/13/2017 Orders Only [facility] ProviderJhony MD [address] [place] [id number] Social History Tobacco Use Types Packs/Day Years Used Date Smoking Tobacco: Never Comments Unknown Sex and Gender Information Value Date Recorded Sex Assigned at Not on file Legal Sex Female 2:56 AM GROCERY CLERK STOCKING Gender Identity Not on file Sexual Orientation Not on file documented as of this encounter Plan of Treatment Not on file documented as of this encounter Procedures Procedure Name Priority Date/Time Associated Diagnosis Comments DISCHARGE LABORATORY CUMULATIVE REPORT 12/13/2017 12:00 AM GROCERY CLERK STOCKING documented in this encounter Results * DISCHARGE LABORATORY CUMULATIVE REPORT (12/13/2017 12:00 AM GROCERY CLERK STOCKING) Narrative 12/13/2017 12:00 AM GROCERY CLERK STOCKING Ordered by an unspecified provider. Historical Provider LAB BLOOD ORDERABLES Eufemia l Result documented in this encounter Visit Diagnoses Not on filedocumented in this encounter Care Teams Tire Curer Relationship Specialty Start Date End Date Unknown, Notinfile PCP - General 12/13/17 01/02/18 Stepan Stiles MD [address] [place] [address] PCP - General 01/03/18 03/20/20 Cecilia López DO [address] [place] [address] PCP - General Family Medicine 03/21/20 documented as of this encounter
--- OUTSIDE RECORDS SUMMARY | 2024-12-22 01:33 | XMS_ITS ---
Author Organization [facility] al Address [address] [place] [address] Care Team Providers Care External Grinder Tool Name Role Phone Cecilia López DO Primary Care Provider [phone]- [phone] Active Problems Problem Noted Date Diagnosed Date 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 Stock 6-8mos Assessment [...] as needed Coronary artery disease invo lving [place] coronary artery of [place] heart 06/23/2021 Overview (06/23/2021): Added automatically from request for surgery [id number] Advanced nonexudative age-re lated macular degeneration of [...] PRN Assessment & Plan (11/14/2020 9:01 AM INSTALLATION HELPER): OD Hx of superior edema - improved [...] -monitor Assessment & Plan (10/17/2018 11:51 AM INSTALLATION HELPER): Measured today -monitor Assessment & Plan (06/06/2018 [...] 07/18/201802/16 Assessment & Plan (10/17/2018 11:50 AM INSTALLATION HELPER): -stable vision -continue preservative free dexamethasone once daily No intraocular inflammation or concern for rejection although fine vessels seen towards interface superior nasally -monitor with repeat exam in 3-6 months. 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 06/06/201802/16 Assessment & Plan (10/17/2018 11:50 AM INSTALLATION HELPER): MCE superiorly, measured today -stable vision -continue [...]
--- OUTSIDE RECORDS SUMMARY | 2024-12-22 01:33 | XMS_ITS | Clinical Summary ---
Author Organization [facility] Address [address] [place] [address] Care Team Providers Care Press Tender Short Goods Name Role Phone Cecilia López Primary Care Provider [phone] Allergies No known active allergies Medications calcium carbonate-vit darling D3 1500 mg (600 mg elemental) -200 units per tablet Take 1 tablet by mouth daily Active omega 0-yvd-mln-fis h oil 100-160-1,000 mg capsule Take 1 [...] PM CDT): Scar reducing w/ central clearing BAND SAWYER 20/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 Stock 6-8mos Assessment [...] as needed Coronary artery disease invo lving [place] coronary artery of [place] heart 06/23/2021 Overview (06/23/2021): Added automatically from request for surgery [id number] Advanced nonexudative age-re lated macular degeneration of [...] PRN Assessment & Plan (11/14/2020 9:01 AM VISCOSITY WORKER): OD Hx of superior edema - improved [...] -monitor Assessment & Plan (10/17/2018 11:51 AM VISCOSITY WORKER): Measured today -monitor Assessment & Plan (06/06/2018 [...] 07/18/201802/16 Assessment & Plan (10/17/2018 11:50 AM VISCOSITY WORKER): -stable vision -continue preservative free dexamethasone once daily No intraocular inflammation or concern for rejection although fine vessels seen towards interface superior nasally -monitor with repeat exam in 3-6 months. 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 06/06/201802/16 Assessment & Plan (10/17/2018 11:50 AM VISCOSITY WORKER): MCE superiorly, measured today -stable vision -continue [...] Type Department Care Team Description 12/13/2024 Telephone [facility] Ophthalmology [address] [place] [id number] Nazanin Theodore MD PhD concerns prior to appt 12/12/2024 1:45 PM VISCOSITY WORKER Office Visit [facility] Ophthalmology [facility] Outpatient [address] [address] Nazanin Theodore MD PhD Exudative age-related macular degeneration of right eye with active choroidal neovascularization (HCC) (Primary Dx) 12/05/2024 1:00 PM VISCOSITY WORKER Office Visit [facility] Card[facility] [address] [place] [address] Donte Leonard MD Coronary artery disease involving [place] coronary artery of [place] heart with angina pectoris (Primary Dx); Status post angioplasty with stent; Mild aortic stenosis; Hypertension associated with diabetes (HCC) 10/31/2024 10:30 AM VISCOSITY WORKER Office Visit [facility] Ophthalmology [facility] [address] [address] Nazanin Theodore MD PhD Exudative age-related macular degeneration of right eye with active choroidal neovascularization (HCC) (Primary Dx) 09/26/2024 11:00 AM VISCOSITY WORKER Office Visit [facility] Ophthalmology [address] [facility] [address] [place] [address] Nazanin Theodore MD PhD Exudative [...] 07/19/2018,07/19/2018 Surgical History Surgery Date Site/Laterality Comments [place] COLONOSCOPY FLX DX W/COLLJ SPEC WHEN PFRMD Complete Colonoscopy - (Added by Conv) MN EXC CYST/ABERRANT BREAST TISSUE OPEN 1/> LESION [...] artery disease) Frequent urination at night Diarrhea MODOC (hard of hearing) Family History Medical History [...] on file Legal Sex Female 2:56 AM VISCOSITY WORKER Gender Identity Not on file Sexual Orientation Not on file Obstetrics History Para Term AB IAB SAB Ectopic Multiple Livin g Live Births 3 3 3 3 Date Outcome GA Total Labor Labor/2nd/3rd Weight Sex Type Anes PTL Fadumo A1 A5 Name Clin Term Term Term Last Filed Vital Signs Vital Sign Reading Time Taken Comments Blood Pressure 136/62 12/05/2024 12:56 PM VISCOSITY WORKER Pulse 59 12/05/2024 12:56 PM VISCOSITY WORKER Temperature 36.9 C (98.5 F) 02/16/2023 2:03 PM CDT Respiratory Rate 16 02/16/2023 2:03 PM CDT Oxygen Saturation 99% 12/05/2024 12: 56 PM VISCOSITY WORKER Inhaled Oxygen Concentration - - Weight 55.7 kg (122 lb 12.8 oz) 025 12:56 PM VISCOSITY WORKER Height 162.6 cm (5' 4 ) 12/05/2024 12:5 6 PM VISCOSITY WORKER Body Mass Index 21.08 12/05/2024 12:56 PM VISCOSITY WORKER Plan of Treatment Health Maintenance Due Date [...] history exists Medical Devices Implanted Type Area Meat Inspector Device Identifier Shelf Expiration Date Model / Serial / Lot [employer] Medical [id number] Catheter 3.5x12 Mm Shockwave C2 Ivl - [id number] Implanted:Qty: 1 on 07/03/2021 by Donte Leonard MD at [facility] 01/07/2023 [id number] / / [employer] [id number] Synergy 3.5mm 24mm 144cm Radiopaque 1 Access Port Inflation Lumen - [id number] Implanted:Qty: 1 on 07/03/2021 by Donte Leonard MD at [facility] [employer] 01/15/2023 [id number] / / [employer] Mynx Control 6-7fr 2 Mode Balloon Catheter Sealant Lock Syringe [id number] - [id number] Implanted:Qty: 1 on 08/12/2022 by Donte Leonard MD at [facility] [employer] 06/09/2024 [id number] / / [id number] Procedures Procedure Name Priority Date/Time Associated Diagnosis Comments INTRAVITREAL INJECTION, PHARMACOLOGIC AGENT - OD - RIGHT EYE Routine 12/12/2024 2:09 PM VISCOSITY WORKER Exudative age-related macular degeneration of right eye with active choroidal neovascularization (HCC) OCT, RETINA - OU - BOTH EYES Routine 12/12/2024 2:09 PM VISCOSITY WORKER Exudative age-related macular degeneration of right eye with active choroidal neovascularization (HCC) INTRAVITREAL INJECTION, PHARMACOLOGIC AGENT - OD - RIGHT EYE Routine 10/31/2024 12:17 PM VISCOSITY WORKER Exudative age-related macular degeneration of right eye with active choroidal neovascularization (HCC) OCT, RETINA - OU - BOTH EYES Routine 10/31/2024 12:12 PM VISCOSITY WORKER Exudative age-related macular degeneration of right eye with active choroidal neovascularization (HCC) INTRAVITREAL INJECTION, PHARMACOLOGIC AGENT - OD - RIGHT EYE Routine 09/26/2024 12:22 PM VISCOSITY WORKER Exudative age-related macular degeneration of right eye with active choroidal neovascularization (HCC) OCT, RETINA - OU - BOTH EYES Routine 09/26/2024 11:49 AM VISCOSITY WORKER 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 LIPID PANEL Routine 03/21/2024 11:49 AM CDT COMPREHENSIVE METABOLIC PANEL Routine 08/09/2022 10:49 AM CDT Coronary artery disease involving [place] coronary artery of [place] heart with angina pectoris Pre-procedure lab exam from Last 3 Months or Most Recently Relevant to Health Maintenance Results * Intravitreal Injection, Pharmacologic Agent - OD - Right Eye (12/12/2024 2:09 PM VISCOSITY WORKER) Anatomical Region Laterality Modality Head Other Narrative 12/12/2024 2:09 PM VISCOSITY WORKER Time Out Informed consent was obtained after all risks, benefits and alternatives were explained to the patient. The patient understood, agreed and wished to proceed. Timeout was completed verifying the patient, procedure, laterality and allergies. Anesthesia Subconjunctival anesthesia was used, Topical anesthesia was used. Anesthetic medications included Lidocaine 2%, Proparacaine 0.5%. The anesthesia lot number is [id number]. The expiration date is 11/09/25. The manufacture of the medication is [employer]. Intravitreal Injection, Pharmacologic Agent Preparation included 5% betadine to ocular surface, 10% betadine to eyelids. A 30 gauge needle was used. Pharmaceutical Medication: 2 mg aflibercept syringe 2 mg/0.05 mL Route: intravitreal, Site: Right Eye [facility]: [id number], Lot: [id number], Expiration date: 03/09/2026, Waste: 0 mL The [...] OU - Both Eyes (12/12/2024 2:09 PM VISCOSITY WORKER) Anatomical Region Laterality Modality Head Optical Coherenc e Tomography Narrative 12/12/2024 2:09 PM VISCOSITY WORKER Right Eye Quality was good. Scan locations [...] OD - Right Eye (10/31/2024 12:17 PM VISCOSITY WORKER) Anatomical Region Laterality Modality Head Other Narrative 10/31/2024 12:17 PM VISCOSITY WORKER Time Out Informed consent was obtained after all risks, benefits and alternatives were explained to the patient. The patient understood, agreed and wished to proceed. Timeout was completed verifying the patient, procedure, laterality and allergies. Anesthesia Subconjunctival anesthesia was used, Topical anesthesia was used. Anesthetic medications included Lidocaine 2%, Proparacaine 0.5%. The anesthesia lot number is [id number]. The expiration date is 11/09/25. The manufacture of the medication is [employer]. Intravitreal Injection, Pharmacologic Agent Preparation included 5% betadine to ocular surface, 10% betadine to eyelids. A supplied needle was used. Pharmaceutical Medication: 2 mg aflibercept syringe 2 mg/0.05 mL Route: intravitreal, Site: Right Eye [facility]: [id number], Lot: [id number], Expiration date: 02/06/2026, Waste: 0 mL The [...] OU - Both Eyes (10/31/2024 12:12 PM VISCOSITY WORKER) Anatomical Region Laterality Modality Head Optical Coherenc e Tomography Narrative 10/31/2024 12:12 PM VISCOSITY WORKER Right Eye Quality was good. Scan locations [...] OD - Right Eye (09/26/2024 12:22 PM VISCOSITY WORKER) Anatomical Region Laterality Modality Head Other Narrative 09/26/2024 12:22 PM VISCOSITY WORKER Time Out Informed consent was obtained after all risks, benefits and alternatives were explained to the patient. The patient understood, agreed and wished to proceed. Timeout was completed verifying the patient, procedure, laterality and allergies. Anesthesia Subconjunctival anesthesia was used, Topical anesthesia was used. Anesthetic medications included Lidocaine 2%, Proparacaine 0.5%. The anesthesia lot number is [id number]. The expiration date is 10/2025. The manufacture of the medication is [employer]. Intravitreal Injection, Pharmacologic Agent Preparation included 5% betadine to ocular surface, 10% betadine to eyelids. A 30 gauge needle was used. Pharmaceutical Medication: 2 mg aflibercept syringe 2 mg/0.05 mL Route: intravitreal, Site: Right Eye [facility]: [id number], Lot: [id number], Expiration date: 01/07/2026, Waste: 0 mL The [...] OU - Both Eyes (09/26/2024 11:49 AM VISCOSITY WORKER) Anatomical Region Laterality Modality Head Optical Coherenc e Tomography Narrative 09/26/2024 11:49 AM VISCOSITY WORKER Right Eye Quality was good. Scan locations [...] 139(H) 65 - 99 mg/dL [facility] Comment: Fasting reference interval For someone without known diabetes, a glucose value >125 mg/dL indicates that they may have diabetes and this should be confirmed with a follow-up test. BUN 12 7 - 25 mg/dL [facility] Creatinine 0.92 0.60 - 0.95 mg/dL [facility] eGFR 63 > OR = 60 mL/min/1. 73m2 [facility] Comment: The eGFR is based on the CKD-EPI 202 equation. To calculate the new eGFR from a previous Creatinine or Cystatin C result, go to https://www.kidney.org/professionals/ kdoqi/gfr%5Fcalculator BUN/creat ratio NOT APPLICABLE 6 - 22 (calc) [facility] Sodium 136 135 - 146 mmol/L [facility] Potassium, pl 4.3 3.5 - 5.3 mmol/L [facility] Chloride 105 98 - 110 mmol/L [facility] CO2 26 20 - 32 mmol/L [facility] Calcium 9.0 8.6 - 10.4 mg/dL [facility] Protein, sr 6.3 6.1 - 8.1 g/dL [facility] Albumin 3.5(L) 3.6 - 5.1 g/dL [facility] GLOBULIN 2.8 1.9 - 3.7 g/dL (calc) [facility] Alb/glob ratio 1.3 1.0 - 2.5 (calc) [facility] Bilirubin, total 1.2 0.2 - 1.2 mg/dL [facility] Alk phos 57 37 - 153 U/L [facility] AST 18 10 - 35 U/L [facility] ALT (SGPT) 15 6 - 29 U/L [facility] Blood 08/09/2022 10:4 9 AM CDT 08/09/2022 10:50 AM CDT Donte Leonard MD LAB BLOOD ORDERABLES Final Resul t [facility] [address] [place] [address] from Last 3 Months or Most Recently Relevant to Health Maintenance Insurance MEDICARE [facility] MEDICARE [facility] MEDICARE [facility] Care Teams Press Tender Short Goods Relationship Specialty Start Date End Date Cecilia López DO PCP - General Family Medicine 03/21/20
[2024-12-22 02:00] LABS: Basophils Percent Auto 0.5 % (0.2-1.2); Eosinophils Absolute Auto 0.1 K/mm3 (0-0.3); Eosinophils Percent Auto 1.1 % (0-4.4); Hematocrit 35.4 % (37.0-47.0); Hemoglobin 11.5 g/dL (12.0-15.0); Immature Granulocyte Absolute 0.02 K/mm3 (0.00-0.031); Immature Granulocyte Percent A 0.3 % (0-0.5); Lymphocytes Absolute Auto 1.27 K/mm3 (0.9-3.2); Lymphocytes Percent Auto 20.5 % (18.3-44.2); Mean Corpuscular HGB Conc 32.5 g/dl (32-36); Mean Corpuscular Hemoglobin 34.2 pg (26-34); Mean Corpuscular Volume 105.4 fl (80-100); Monocytes Absolute Auto 0.6 K/mm3 (0.1-0.6); Monocytes Percent Auto 9.9 % (2.6-8.5); Neutrophils Absolute Auto 4.2 K/mm3 (1.3-6.7); Neutrophils Percent Auto 67.7 % (45.5-73.1); Platelet Count Result 209 k/mm3 (150-375); Red Blood Count 3.36 M/mm3 (4.2-5.4); Red Cell Distribution Width 12.9 % (11.5-14.5); White Blood Count 6.2 K/mm3 (4.5-10.0)
[2024-12-22 02:13] LABS: Anion Gap 11 mmol/L (4-12); Blood Urea Nitrogen 29 mg/dL (7-17); Calcium 9.3 mg/dL (8.4-10.2); Carbon Dioxide 22 mmol/L (22-30); Chloride 103 mmol/L (98-107); Estimated CRCL calculation 33 ml/min; Estimated Glomerular Filt Rate 55; Glucose 181 mg/dL (65-110); Potassium 4.5 mmol/L (3.4-5.0); Sodium 136 mmol/L (137-145)
[2024-12-22 02:17] LABS: Band Neutrophils Percent 0 % (0-6)
[2024-12-22 02:18] LABS: Anisocytosis 1+; Platelet Estimate Adequate (Adequate); Schistocytes None Seen
[2024-12-22 02:36] VITALS: BP 150/98; PULSE 87; RESP 15; O2SAT 100
--- NOTE | 2024-12-22 03:07 | ED.FEMALEGU ---
HPI - Female Genitourinary General Chief complaint: Urogenital-Female Stated complaint: bleeding from rectum,vagina? Time Seen by Provider: 12/22/24 01:21 Source: patient Mode of arrival: ambulatory Limitations: no limitations History of Present Illness HPI Narrative: Patient is an 84 y/o female, with PMH of DM, vaginal/uterus CA, who presents to the ED with c/o hematuria. Patient reports she developed hematuria this morning. States she is passing lina blood when urinating. Reports urinary frequency, dysuria, feeling of incomplete emptying. Patient does note history of frequent UTIs. Sees urology here. Notes she finished a course of Bactrim last Tuesday. Reports having pain throughout her lower abdomen. Denies significant back pain. Has been having some left-sided sciatic pain over the past few days. Denies nausea, vomiting, fevers. Patient is on Plavix. Related Data Home Medications ?Medication ?Instructions ?Recorded ?Confirmed ?Last Taken ?Type latanoprost 0.005 % eye drops 1 drop ophthalmic (eye) HS 09/11/19 11/20/24 04/01/20 History omega 3-dha 120 mg-epa 180 mg-fish 1 cap PO QAM 12/11/19 11/20/24 04/01/20 History oil 600 mg capsule (Extreme [place]-3) omeprazole 20 mg capsule,delayed 20 mg PO DAILY 12/11/19 11/20/24 04/01/20 History release nitroglycerin 0.4 mg sublingual 0.4 mg sublingual PRN PRN Chest 06/23/21 11/20/24 Unknown History tablet Pain lancets 28 gauge (FreeStyle 03/15/22 11/20/24 Unknown History Lancets) calcium 600 mg-D3 800 unit-mag11 1 tablet PO DAILY 11/25/22 11/20/24 Unknown History 50 tp-svqu-jqriae-chico-s.borat tablet (Caltrate 600-D Plus Minerals) cyanocobalamin (vitamin B-12) 1,000 mcg PO BID 11/25/22 11/20/24 Unknown History 1,000 mcg tablet (Vitamin B-12) wwdehdxp-gkvb-mjeo 8 mg-folic 400 1 tablet PO DAILY 11/25/22 11/20/24 Unknown History mcg-K 50 mcg-lutein 300 mcg tablet (Centrum Silver Women) vit C 250 mg-vit E 90 mg-zinc 40 1 tablet PO BID 11/25/22 11/20/24 Unknown History mg-copper 1 al-exnwtq-ccwzll capsule (PreserVision AREDS-2) acyclovir 800 mg tablet 800 mg PO BID 10/06/23 11/20/24 Unknown History cholecalciferol (vitamin D3) 25 50 mcg PO DAILY 11/24/23 11/20/24 Unknown History mcg (1,000 unit) capsule dexamethasone 0.1 % eye 1 drp ophthalmic (eye) Q4H 11/24/23 11/20/24 Unknown History drops,suspension atorvastatin 20 mg tablet mg PO 11/20/24 11/20/24 Unknown History amlodipine 10 mg tablet mg PO 12/10/24 Unknown History amlodipine 5 mg tablet 10 mg PO DAILY 12/10/24 Unknown History Allergies Allergy/AdvReac Type Severity Reaction Status Date / Time No Known Allergies Allergy Unknown Verified 12/10/24 14:50 Review of Systems Review of Systems: All systems reviewed & are unremarkable except as noted in HPI. All systems reviewed & are unremarkable except as noted in HPI and below PMFSH Past Medical History Medical History Malignant neoplasm of vagina History of uterine cancer Glaucoma Osteoarthritis Hypertension Osteoporosis Malignant neoplasm of uterus, part unspecified Mixed hyperlipidemia Type 2 diabetes mellitus without complications Surgical History Surgical History History of corneal transplant History of gynecologic surgery History of hysterectomy Family History Family History Mother Diabetes mellitus, Onset Age: 69 Family history of glaucoma, Onset Age: 69 Hypertension, Onset Age: 69 Family history of elevated blood lipids, Onset Age: 69 Family history of cardiovascular disease, Onset Age: 69 Acute myocardial infarction, Onset Age: 69 Family history of coronary artery disease, Onset Age: 69 Family history of malignant neoplasm of breast in first degree relative Father Depression, Onset Age: 76 Family history of elevated blood lipids, Onset Age: 76 Family history of cardiovascular disease, Onset Age: 76 Acute myocardial infarction, Onset Age: 76 Family history of coronary artery disease, Onset Age: 76 Grandparent Hypertension Family history of cardiovascular disease Cerebrovascular accident Daughter Glioblastoma Social History Social History Social History: Caffeine-coffee Smoking status: Never smoker Second hand tobacco smoke exposure: No Alcohol intake: current Drinks per week: 5 Alcohol use details: Moderate Substance use: never Substance use type: does not use Lack of Transportation: No Lack of Food: Never True Current Housing: I Have Housing Concerned About Future Housing: No Difficulty Paying Gas/Electric Bills: No Difficulty Paying for Meds: No Currently Unemployed: No Education: High School Diploma/GED Difficulty w/ Childcare or Family Care: No Living arrangements: with family Additional living arrangements comments: - Gurpreet James Occupation/Education: retired Gender identity (if verbalized by the patient): Female Sexual Orientation (if Verbalized by the Patient): Straight or Heterosexual Spiritual care concerns: No Exam Narrative: GENERAL: Elderly but well appearing, thin, non-toxic, in no acute distress. HEAD: Normocephalic, atraumatic. RESPIRATORY: Airway patent, respirations nonlabored. Clear to auscultation bilaterally, no rales, rhonchi, wheezing. CARDIOVASCULAR: Regular rate and rhythm without murmurs, rubs, or gallops. ABDOMINAL: Soft, diffuse tenderness throughout lower abdomen, no rebound, nondistended. Normoactive BS. No CVA tenderness to percussion. MUSCULOSKELETAL: Moves all extremities. No gross deformities. Mild tenderness palpation over left SI region. SKIN: Warm, dry, normal color. NEURO: A&O X3. Speech clear. PSYCHIATRIC: Appropriate mood and affect. Normal interaction. Course Vital Signs Vital signs: Vital Signs Temperature 98.4 F 12/21/24 16:33 Pulse Rate 76 12/21/24 16:33 Respiratory Rate 16 12/21/24 16:33 Blood Pressure 154/50 H 12/21/24 16:33 Pulse Oximetry 98 12/21/24 16:33 Oxygen Delivery Room Air 12/21/24 16:33 Temperature 98.4 F 12/21/24 16:33 Pulse Rate 81 12/22/24 07:19 Respiratory Rate 15 12/22/24 07:19 Blood Pressure 134/78 12/22/24 07:19 Pulse Oximetry 100 12/22/24 07:19 Oxygen Delivery Room Air 12/21/24 16:33 MDM - Female Genitourinary MDM Narrative Medical decision making narrative: Patient presented to ED with hematuria, lower abdominal pain. History of frequent UTIs. On Plavix. Vital signs are stable upon arrival. Patient is in no acute distress. No evidence of hemodynamic compromise. Cbc without leukocytosis. Hemoglobin is stable at 11.5. Appears consistent with previous records. CMP is unremarkable. Stable kidney function. UA w/ > 100 WBC/RBC. Sent for culture. Will treat as patient is acutely symptomatic. Previous urine cultures have resulted positive for E coli and Klebsiella. Both sensitive to cephalosporins. Given dose of Rocephin in the ED. Patient does report history of frequent UTIs, but denies ever having hematuria associated with this. With abdominal pain and tenderness on exam, CT scan of abdomen/pelvis was obtained. Postvoid residual > 220 mL. Discussed catheter placement for acute retention. Patient is agreeable. Care signed out to Dr. Servin at shift change pending STAT RAD imaging results. Medical Records Attestation: I reviewed the patient's medical records. Lab Data Attestation: I reviewed the patient's lab results. 12/22/24 01:53 12/22/24 01:53 Labs: Lab Results 12/21/24 12/22/24 12/22/24 Range/Units 16:38 01:53 06:54 WBC 6.2 (4.5-10.0) K/mm3 RBC 3.36 L (4.2-5.4) M/mm3 Hgb 11.5 L (12.0-15.0) g/dL Hct 35.4 L (37.0-47.0) % MCV 105.4 H (80-100) fl MCH 34.2 H (26-34) pg MCHC 32.5 (32-36) g/dl RDW 12.9 (11.5-14.5) % Plt Count 209 (150-375) k/mm3 MPV 9.0 (7.4-10.4) fl Immature Gran % (Auto) 0.3 (0-0.5) % Neut % (Auto) 67.7 (45.5-73.1) % Lymph % (Auto) 20.5 (18.3-44.2) % [place] % (Auto) 9.9 H (2.6-8.5) % Eos % (Auto) 1.1 (0-4.4) % Baso % (Auto) 0.5 (0.2-1.2) % Lymph # (Auto) 1.27 (0.9-3.2) K/mm3 [place] # (Auto) 0.6 (0.1-0.6) K/mm3 Eos # (Auto) 0.1 (0-0.3) K/mm3 Baso # (Auto) 0.0 (0.0-0.1) K/mm3 Abs Immat Gran (auto) 0.02 (0.00-0.031) K/mm3 Absolute Neuts (auto) 4.2 (1.3-6.7) K/mm3 Absolute Nucleated RBC 0.000 (0.0-0.012) K/mm3 Band Neutrophils % 0 (0-6) % Nucleated RBC % 0.0 (0.0-0.2) % Platelet Estimate Adequate (Adequate) Anisocytosis 1+ Schistocytes None seen Sodium 136 L (137-145) mmol/L Potassium 4.5 (3.4-5.0) mmol/L Chloride 103 (98-107) mmol/L Carbon Dioxide 22 (22-30) mmol/L Anion Gap 11 (4-12) mmol/L BUN 29 H (7-17) mg/dL Creatinine 0.96 (0.7-1.0) mg/dL Estim Creat Clear Calc 33 ml/min Estimated GFR 55 L (59 - ) Glucose 181 H (65-110) mg/dL POC Capillary Glucose 188 H (65-105) mg/dl Calcium 9.3 (8.4-10.2) mg/dL Urine Color Red H (Yellow) Urine Appearance Turbid H (Clear) Urine pH TNP Ur Specific [place] TNP Urine Protein TNP Urine Glucose (UA) TNP Urine Ketones TNP Ur Blood (Man) TNP Urine Nitrate TNP Urine Bilirubin TNP Urine Urobilinogen TNP Add Ur Microanalysis Reviewed Leukocyte Esterase Rfl TNP Urine RBC >100 H (0-2) /hpf Urine WBC >100 H (0-3) /hpf Ur Squamous Epith Cells Few (Few) /hpf Urine Bacteria None seen /hpf Urine Casts 0-2 Urine Yeast (Budding) Present H (None) /hpf Imaging Data Attestation: I personally reviewed and interpreted this imaging study as follows: Discharge Plan Discharge Clinical Impression: Gross hematuria, Acute urinary retention UTI (urinary tract infection) Qualifiers: Urinary tract infection type: site unspecified Hematuria presence: without hematuria Qualified Code(s): N39.0 - Urinary tract infection, site not specified Patient Disposition: Home, Self-Care Condition: Stable Instructions: Antibiotic Form, Urinary Tract Infection in Women (ED), Padilla Catheter Placement and Care (ED), Acute Urinary Retention in Women (ED) Additional Instructions: Take antibiotics as prescribed. Follow-up with urology for further evaluation and catheter management. Return to the ED if you experience worsening or severe symptoms, severe pain, urine not flowing into catheter bag, fevers, unable to keep down food or drink, or any other symptoms concern. Patient Language: Tam[place] Prescriptions: New cephalexin 500 mg capsule 500 mg PO Q6H 7 Days Qty: 28 0RF No Action acyclovir 800 mg tablet 800 mg PO BID Caltrate 600-D Plus Minerals 600 mg calcium- 800 unit-50 mg tablet 1 tablet PO DAILY Centrum Silver Women 8 mg iron-400 mcg-300 mcg tablet 1 tablet PO DAILY cyanocobalamin (vitamin B-12) [Vitamin B-12] 1,000 mcg tablet 1,000 mcg PO BID PreserVision AREDS-2 250-90-40-1 mg capsule 1 tablet PO BID Digestive Health Probiotic 10 billion cell capsule 1 cap PO DAILY Qty: 60 0RF metformin 500 mg tablet extended release 24 hr 500 mg PO DAILY Qty: 90 1RF Rx Instructions: Take with dinner atorvastatin 20 mg tablet PO latanoprost 0.005 % drops 1 drop EACH EYE HS Extreme [place]-3 120-180-600 mg capsule 1 cap PO QAM omeprazole 20 mg capsule,delayed release(DR/EC) 20 mg PO DAILY (DME) lancets [FreeStyle Lancets] 28 gauge misc See Rx Instructions .Route Rx Instructions: As directed cholecalciferol (vitamin D3) 25 mcg (1,000 unit) capsule 50 mcg PO DAILY dexamethasone 0.1 % drops,suspension 1 drp EACH EYE Q4H amlodipine 5 mg tablet 10 mg PO DAILY amlodipine 10 mg tablet PO nitroglycerin 0.4 mg tablet, sublingual 0.4 mg sublingual PRN PRN (Reason: Chest Pain) ferrous sulfate [FeroSul] 325 mg (65 mg iron) tablet See Rx Instructions .ROUTE BID Qty: 180 1RF Dose Instruction: TAKE 1 TABLET BY MOUTH DAILY Rx Instructions: TAKE 1 TABLET BY MOUTH DAILY twice a day; (DME) FreeStyle Test Strip See Rx Instructions .Route Qty: 100 12RF Rx Instructions: BID (DME) pen needle, diabetic [Novofine 32] 32 gauge x 1/4 needle See Rx Instructions .ROUTE .COMPLEX Qty: 100 3RF Dose Instruction: DIRECTED Rx Instructions: DIRECTED clopidogrel 75 mg tablet 75 mg PO DAILY Qty: 90 1RF escitalopram oxalate 20 mg tablet See Rx Instructions .ROUTE .COMPLEX Qty: 90 1RF Dose Instruction: TAKE 1 TABLET BY MOUTH DAILY Rx Instructions: TAKE 1 TABLET BY MOUTH DAILY insulin degludec [Tresiba FlexTouch U-100] 100 unit/mL (3 mL) insulin pen 5 unit subcut DAILY Qty: 15 0RF metoprolol succinate 25 mg tablet extended release 24 hr See Rx Instructions .ROUTE .COMPLEX Qty: 45 1RF Dose Instruction: TAKE 1/2 TABLET BY MOUTH DAILY Rx Instructions: TAKE 1/2 TABLET BY MOUTH DAILY Synjardy XR 25-1,000 mg tablet, IR - ER, biphasic 24hr 1 tablet PO QAM Qty: 90 1RF sulfamethoxazole-trimethoprim [Bactrim DS] 800-160 mg tablet 1 tablet PO BID Qty: 10 0RF Follow-up/Referrals: Cecilia López DO [Primary Care Provider] -
[2024-12-22 06:42] VITALS: BP 132/58; PULSE 83; RESP 15; O2SAT 98
[2024-12-22 06:56] LABS: Glucose Point of Care 188 mg/dl (65-105)
[2024-12-22 07:19] VITALS: BP 134/78; PULSE 81; RESP 15; O2SAT 100
== END 2024-12-22 07:20 | disposition home or self-care (01) ==
PROVIDERS: Student in an Organized Health Care Education/Training Program; Emergency Provider Physician Assistant; PCP Family Medicine
DX: N39.0 Urinary tract infection, site not specified (principal); R31.0 Gross hematuria; R33.9 Retention of urine, unspecified; I10 Essential (primary) hypertension; E78.2 Mixed hyperlipidemia; E11.39 Type 2 diabetes mellitus with other diabetic ophthalmic complication; H42 Glaucoma in diseases classified elsewhere; M81.0 Age-related osteoporosis without current pathological fracture; M19.90 Unspecified osteoarthritis, unspecified site; Z94.7 Corneal transplant status; Z85.42 Personal history of malignant neoplasm of other parts of uterus; Z85.44 Personal history of malignant neoplasm of other female genital organs; Z90.710 Acquired absence of both cervix and uterus; Z79.84 Long term (current) use of oral hypoglycemic drugs; Z79.02 Long term (current) use of antithrombotics/antiplatelets; Z79.4 Long term (current) use of insulin; Z79.899 Other long term (current) drug therapy
CPT/HCPCS: 36415; 51702; 74178; 80048; 81001; 82948; 85025; 87086; 96365; 99284; J0696; Q9967

== ENCOUNTER 2025-01-07 12:15 | Outpatient (CLI) | payer MEDICARE, BC, SELFPAY ==
--- NOTE | ~2025-01-07 | XR_ITS ---
Left Knee Technique: AP, lateral, and sunrise views were obtained. Clinical History: Pain Findings: No fracture or dislocation is seen. Osseous alignment is anatomic. Joint spaces are preserv ed, with minimal degenerative spurring. Soft tissues are unremarkable. No joint effusion is seen. Impression: Minimal degenerative spurring. Reviewed, dictated and finalized at location . Impression: Minimal degenerative spurring.
== END 2025-01-07 12:16 | disposition home or self-care (01) ==
LOC: GOSHIMG 12:16
PROVIDERS: PCP Family Medicine; Visit Provider Family Medicine
DX: M25.562 Pain in left knee (principal)
CPT/HCPCS: 73564

== ENCOUNTER 2025-06-18 14:09 | Outpatient (CLI) | payer MEDICARE, BC, SELFPAY ==
--- OUTSIDE RECORDS SUMMARY | 2025-06-18 13:30 | XMS_ITS | Encounter Summary ---
Author Organization [facility] Address [address] [place] [address] Care Team Providers Care Marketing Traffic Manager Name Role Phone Cecilia López DO Primary Care Provider [phone] Encounter Details Date Type Department Care Team (Late st Contact Info) Description 06/18/2025 1:30 PM CDT Office Visit [facility] Oncology and Hematology - [place] [address] [place] [address] Astrid Alcantara MD [address] [place] [address] Chronic anemia (Primary Dx); Easy bruising Social History Tobacco Use Types Packs/Day Years Used Date Smoking Tobacco: Never Smokeless Tobacco: Never Tobacco Cessation:Counseling Given: Not Answered Alcohol Use Standard Drinks/Week Comments Yes 0 (1 standard drink = 0.6 oz pur e alcohol) Occasionally Comments Unknown Sex and Gender Information Value Date Recorded Sex Assigned at Not on file Legal Sex Female 5:36 AM DYE FEEDER Gender Identity Not on file Sexual Orientation Not on file documented as of this encounter Last Filed Vital Signs Vital Sign Reading Time Taken Comments Blood Pressure 148/65 06/18/2025 1:19 PM CDT Pulse 67 06/18/2025 1:17 PM CDT Temperature 36.9 C (98.4 F) 06/18/2025 1:17 PM CDT Respiratory Rate 15 06/18/2025 1:17 PM CDT Oxygen Saturation 98% 06/18/2025 1:17 PM CDT Inhaled Oxygen Concentration - - Weight 56.7 kg (125 lb) 06/18/2025 1:17 PM CDT Height 162.6 cm (5' 4) 06/18/2025 1:17 PM CDT Body Mass Index 21.46 06/18/2025 1:17 PM CDT documented in this encounter Plan of Treatment Upcoming Encounters Date Type Department Care Team (Late st Contact Info) Description 07/23/2025 4:30 PM CDT Telephone Check Up [facility] Oncology and Hematology - [place] [facility] [address] [place] [address] Devante Gaston MD [address] [facility] [address] [place] [address] Scheduled Orders Name Type Priority Associated Diagnoses Orde r Schedule CBC WITH DIFFERENTIAL Lab Stat Chronic anemia Expected: 06/18/2025, Expires: 06/18/2026 COMPREHENSIVE METABOLIC PANEL Lab Stat Chronic anemia Easy bruising Expected: 06/18/2025, Expires: 06/18/2026 IRON, TIBC, AND PERCENT SATURATION Lab Routine Chronic anemia Expected: 06/18/2025, Expires: 06/18/2026 FERRITIN Lab Routine Chronic anemia Expected: 06/18/2025, Expires: 06/18/2026 VITAMIN B12 AND FOLATE Lab Routine Chronic anemia Expected: 06/18/2025, Expires: 06/18/2026 RETICULOCYTES Lab Routine Chronic anemia Expected: 06/18/2025, Expires: 06/18/2026 LACTATE DEHYDROGENASE Lab Routine Chronic anemia Expected: 06/18/2025, Expires: 06/18/2026 PROTEIN ELECTROPHORESIS W/REFLEX,SERUM Lab Routine Chronic anemia Expected: 06/18/2025, Expires: 06/18/2026 KAPPA/LAMBDA, FREE LIGHT CHAINS Lab Routine Chronic anemia Expected: 06/18/2025, Expires: 06/18/2026 PTT Lab Routine Easy bruising Expected: 06/18/2025, Expires: 06/18/2026 PROTIME-INR Lab Routine Easy bruising Expected: 06/18/2025, Expires: 06/18/2026 METHYLMALONIC ACID Lab Routine Chronic anemia Expected: 06/18/2025, Expires: 06/18/2026 PARIETAL CELL ANTIBODY Lab Routine Chronic anemia Expected: 06/18/2025, Expires: 06/18/2026 documented as of this encounter Visit Diagnoses Diagnosis Chronic anemia- Primary Anemia, unspecified Easy bruising Other symptoms involving skin and integumentary tissues documented in this encounter Care Teams Marketing Traffic Manager Relationship Specialty Start Date End Date Cecilia López DO [address] [facility] [address] [place] [address] PCP - General Family Practice 06/18/25 documented as of this encounter
[2025-06-18 14:40] LABS: Hematocrit 38.3 % (37.0-47.0); Hemoglobin 12.5 g/dL (12.0-15.0); Immature Granulocyte Percent A 0.2 % (0-0.5); Immature Reticulocyte Fraction 9.0 % (3.0-15.9); Lymphocytes Absolute Auto 1.38 K/mm3 (0.9-3.2); Mean Corpuscular HGB Conc 32.6 g/dl (32-36); Mean Corpuscular Hemoglobin 34.3 pg (26-34); Mean Corpuscular Volume 105.2 fl (80-100); Nucleated Red Blood Cells Absolute Auto 0.000 K/mm3 (0.0-0.012); Nucleated Red Blood Cells Perc 0.0 % (0.0-0.2); Platelet Count Result 202 k/mm3 (150-375); Red Blood Count 3.64 M/mm3 (4.2-5.4); Reticulocyte Hemoglobin Conten 39.0 pg (28.2-36.6); Reticulocytes Absolute 0.05 10^6/uL (0.02-0.10); White Blood Count 5.9 K/mm3 (4.5-10.0)
--- OUTSIDE RECORDS SUMMARY | 2025-06-18 15:52 | XMS_ITS | Encounter Summary ---
Author Organization [facility] Address [address] [place] [address] Phone Care Team Providers Care Flight Service Agent Name Role Phone Unknown, Notinfile Primary Care Provider Unavail able Stepan Stiles MD Primary Care Provider [phone] Cecilia López DO Primary Care Provider [phone] Encounter Details Date Type Department Care Team (Late st Contact Info) Description 12/13/2017 Orders Only [facility] ProviderJhony MD [address] [place] [id number] Social History Tobacco Use Types Packs/Day Years Used Date Smoking Tobacco: Never Comments Unknown Sex and Gender Information Value Date Recorded Sex Assigned at Not on file Legal Sex Female 2:56 AM CLOTHING CONSULTANT Gender Identity Not on file Sexual Orientation Not on file documented as of this encounter Plan of Treatment Not on file documented as of this encounter Procedures Procedure Name Priority Date/Time Associated Diagnosis Comments DISCHARGE LABORATORY CUMULATIVE REPORT 12/13/2017 12:00 AM CLOTHING CONSULTANT documented in this encounter Results * DISCHARGE LABORATORY CUMULATIVE REPORT (12/13/2017 12:00 AM CLOTHING CONSULTANT) Narrative 12/13/2017 12:00 AM CLOTHING CONSULTANT Ordered by an unspecified provider. Historical Provider LAB BLOOD ORDERABLES Eufemia l Result documented in this encounter Visit Diagnoses Not on filedocumented in this encounter Care Teams Flight Service Agent Relationship Specialty Start Date End Date Unknown, Notinfile PCP - General 12/13/17 01/02/18 Stepan Stiles MD [address] [place] [address] PCP - General 01/03/18 03/20/20 Cecilia Lpóez DO [address] [place] [address] PCP - General Family Medicine 03/21/20 documented as of this encounter
--- OUTSIDE RECORDS SUMMARY | 2025-06-18 15:52 | XMS_ITS | Clinical Summary ---
Author Organization [facility] Address [address] [place] [address] Care Team Providers Care Door To Door Salesman Name Role Phone Cecilia López Primary Care Provider +1- [phone] Allergies No known active allergies Medications calcium carbonate-vitami n D3 1500 mg (600 mg elemental) -200 units per tablet Take 1 tablet by mouth daily Active omega 7-piv-wnc-fish oil 100-160-1,000 mg capsule Take 1 capsule by mouth daily Active insulin detemir U-100 (LEVEMIR) 100 unit/mL (3 mL) insulin pen Inject 8 Units under the skin nightly Active multivitamin tabletIndication s:Vitamin Deficiency Prevention Take 1 tablet by mouth daily Active omeprazole (PriLOSEC) 20 mg capsule Take 1 capsule (20 mg total) by mouth daily Active escitalopram (LEXAPRO) 20 mg tablet Take 1 tablet (20 mg total) by mouth daily 1 Active ferrous sulfate 325 mg (65 mg of elemental iron) tabletIndication s:Iron Deficiency Anemia Take 1 tablet (325 mg total) by mouth 2 (two) times a day with meals Active vit C,A-Bb-mdztv-lut ein-zeaxan 250-90-40-1 mg capsule Take 1 capsule by mouth 2 (two) times a day Active FreeStyle Test strip 2 (two) times a day 2 Active clopidogreL (PLAVIX) 75 mg tablet Take 1 tablet (75 mg total) by mouth daily 30 tablet 11 3 Active empagliflozin-me tformin (Synjardy XR) 25-1,000 mg tablet, IR & ER, biphasic 24hr Take by mouth Ac tive Novofine 32 32 gauge x 1/4 needle as directed 3 Active losartan (COZAAR) 50 mg tablet TAKE 1 TABLET(50 MG) BY MOUTH EVERY NIGHT 90 tablet 3 4 Active Additional Information Patient not taking.Reported on 05/22/2025 metoprolol XL (TOPROL-XL) 25 mg extended release tablet Take 0.5 tablets (12.5 mg total) by mouth daily 3 Active dexAMETHasone (DECADRON) 0.1 % ophthalmic solution INSTILL 1 DROP INTO RIGHT EYE TWO TIMES DAILY AND 1 DROP INTO THE LEFT EYE ONCE DAILY 10 mL 3 4 Active acyclovir (ZOVIRAX) 800 mg tablet TAKE 1 TABLET(800 MG) BY MOUTH TWICE DAILY 180 tablet 1 4 Active amLODIPine (NORVASC) 10 mg tablet Take 1 tablet (10 mg total) by mouth nightly 90 tablet 6 5 Active atorvastatin (LIPITOR) 20 mg tablet TAKE 1 TABLET(20 MG) BY MOUTH EVERY NIGHT 90 tablet 1 5 Active alendronate (FOSAMAX) 70 mg tablet TAKE 1 TABLET BY MOUTH WEEKLY 5 Active latanoprost (XALATAN) 0.005 % ophthalmic solutionIndicati ons:Bilateral ocular hypertension Administer 1 drop into both eyes nightly Please wait at least 5 (five) minutes in between different eye medications. 7.5 mL 3 5 026 Active TRESIBA 100 unit/mL (3 mL) pen for injection INJECT 5 UNITS SUBCUTANEOUS EVERY DAY 5 Active metFORMIN XR (GLUCOPHAGE XR) 500 mg 24 hr tablet Take 1 tablet (500 mg total) by mouth daily with dinner 5 Active Gemtesa 75 mg tablet Take 75 mg by mouth daily 5 Active Hospital, Clinic, or Other Facility Administered Medication Ordered Dose Route Frequency Start Date End Date Status aflibercept syringe (EYLEA) 2 mg/0.05 mL intraocular syringe 2 mgIndications:Exudative age-related macular degeneration of right eye with active choroidal neovascularization (HCC) 2 mg One-Time Injection 05/22/2025 5 Ended Active Problems Problem Noted Date Diagnosed Date 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 Theodore Keratitis, herpetic OD 02/03/2023 Assessment & Plan (07/05/2023 2:41 PM CDT): Scar reducing w/ central clearing SORT LINE 20/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 Stock 6-8mos Assessment [...] as needed Coronary artery disease invo lving [place] coronary artery of [place] heart 06/23/2021 Overview (06/23/2021): Added automatically from request for surgery [id number] Advanced nonexudative age-re lated macular degeneration of [...] PRN Assessment & Plan (11/14/2020 9:01 AM HARMONIC ANALYST): OD Hx of superior edema - improved [...] -monitor Assessment & Plan (10/17/2018 11:51 AM HARMONIC ANALYST): Measured today -monitor Assessment & Plan (06/06/2018 [...] 07/18/201802/16 Assessment & Plan (10/17/2018 11:50 AM HARMONIC ANALYST): -stable vision -continue preservative free dexamethasone once daily No intraocular inflammation or concern for rejection although fine vessels seen towards interface superior nasally -monitor with repeat exam in 3-6 months. 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 06/06/201802/16 Assessment & Plan (10/17/2018 11:50 AM HARMONIC ANALYST): MCE superiorly, measured today -stable vision -continue [...] Encounters Date Type Department Care Team Description 05/22/2025 1:15 PM CDT Office Visit [facility] Medicine Ophthalmology [address] [place] [phone] Nazanin Theodore MD PhD Exudative age-related macular degeneration of right eye with active choroidal neovascularization (HCC) (Primary Dx); 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 04/17/2025 2:15 PM CDT Office Visit [facility] Medicine Ophthalmology [address] [place] [address] Outpatient Health [address] [place] [phone] Nazanin Theodore MD PhD Exudative age-related macular [...] 07/19/2018,07/19/2018 Surgical History Surgery Date Site/Laterality Comments VA COLONOSCOPY FLX DX W/COLLJ SPEC WHEN PFRMD Complete Colonoscopy - (Added by TW Conv) VA EXC CYST/ABERRANT BREAST TISSUE OPEN 1/> LESION [...] uterus Uterine Cancer - (Added by Torres W Conv) Personal history of other sp ecified conditions History of breast lump - (Ad ded by Conv) Arthritis Diabetes mellitus (HCC) Glaucoma Fuchs' corneal dystrophy Ocular migraine Hypertension Hyperlipidemia Cancer (HCC) vaginal cuff 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 Anemia Type 2 diabetes mellitus Macular degeneration of left eye SOB (shortness of breath) CAD (coronary artery disease) Frequent urination at night Diarrhea [place] (hard of hearing) Family History Medical History [...] on file Legal Sex Female 2:56 AM HARMONIC ANALYST Gender Identity Not on file Sexual Orientation Not on file Obstetrics History Para Term AB IAB SAB Ectopic Multiple Livin g Live Births 3 3 3 3 Date Outcome GA Total Labor Labor/2nd/3rd Weight Sex Type Anes PTL Fadumo A1 A5 Name Clin Term Term Term Last Filed Vital Signs Vital Sign Reading Time Taken Comments Blood Pressure 136/62 12/05/2024 12:56 PM HARMONIC ANALYST Pulse 59 12/05/2024 12:56 PM HARMONIC ANALYST Temperature 36.9 C (98.5 F) 02/16/2023 2:03 PM CDT Respiratory Rate 16 02/16/2023 2:03 PM CDT Oxygen Saturation 99% 12/05/2024 12: 56 PM HARMONIC ANALYST Inhaled Oxygen Concentration - - Weight 55.7 kg (122 lb 12.8 oz) 025 12:56 PM HARMONIC ANALYST Height 162.6 cm (5' 4) 12/05/2024 12:5 6 PM HARMONIC ANALYST Body Mass Index 21.08 12/05/2024 12:56 PM HARMONIC ANALYST Plan of Treatment Health Maintenance Due Date Last Done Comments Albumin Creatinine Ratio, Urine 1940 Depression Screening 1940 Hemoglobin A1C 1940 Osteoporosis Screening-Bone Density Scan 1940 Foot Exam 1940 DTaP/Tdap/Td Vaccine (1 - Tdap) 1951 Hepatitis B Screening 1958 Pneumococcal vaccine 65+ (1 of 2 - PCV) 1959 07/19/2018, 07/19/2018 Zoster Vaccine (1 of 2) 1990 Well Visit 65+ 2005 eGFR 08/09/2023 08/09/2022, 09/2 10/2020, 06/19/2021, Additional history exists Fall Risk Assessment 08/12/2023 08/12/2022, 07/15/20 21 Covid-19 Vaccine (2023-2 5 season) 2024 03/26/2022, 09/18/2021, 01/02/2021, Additional history exists Lipid Panel 03/21/2025 03/21/2024, 04/2023, 07/23/2022, Additional history exists Influenza Vaccine (#1) 2025 , 07/18/2020, 06/27/2019, Additional history exists Dilated Eye Exam 01/23/2026 01/23/2025, , 11/10/2022, Additional history exists Medical Devices Implanted Type Area Garden Implement Mechanic Device Identifier Shelf Expiration Date Model / Serial / Lot [employer] [id number] Catheter 3.5x12 Mm Shockwave C2 Ivl - [id number] Implanted:Qty: 1 on 07/03/2021 by Donte Leonard MD at [facility] [employer] 01/07/2023 [id number] / / [employer] Lea [id number] Synergy 3.5mm 24mm 144cm Radiopaque 1 Access Port Inflation Lumen - [id number] Implanted:Qty: 1 on 07/03/2021 by Donte Leonard MD at [facility] [employer] Lea 01/15/2023 [id number] / / Access [employer] Mynx Control 6-7fr 2 Mode Balloon Catheter Sealant Lock Syringe [id number] - [id number] Implanted:Qty: 1 on 08/12/2022 by Donte Leonard MD at [facility] [employer] 06/09/2024 [id number] / / [id number] Procedures Procedure Name Priority Date/Time Associated Diagnosis Comments INTRAVITREAL INJECTION, PHARMACOLOGIC AGENT - OD - RIGHT EYE Routine 05/22/2025 1:52 PM CDT Exudative age-related macular degeneration of right eye with active choroidal neovascularization (HCC) OCT, RETINA - OU - BOTH EYES Routine 05/22/2025 1:14 PM CDT 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 INTRAVITREAL INJECTION, PHARMACOLOGIC AGENT - OD - RIGHT EYE Routine 04/17/2025 2:59 PM CDT Exudative age-related macular degeneration of right eye with active choroidal neovascularization (HCC) OCT, RETINA - OU - BOTH EYES Routine 04/17/2025 2:25 PM CDT 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 The patient understood, agreed and wished to proceed. Timeout was completed verifying the patient, procedure, laterality and allergies. Anesthesia Subconjunctival anesthesia was used, Topical anesthesia was used. Anesthetic medications included Lidocaine 2%, Proparacaine 0.5%. The anesthesia lot number is [id number]. The expiration date is 08/09/26. The manufacture of the medication is [employer]. Intravitreal Injection, Pharmacologic Agent Preparation included 5% betadine to ocular surface, 10% betadine to eyelids. A 30 gauge needle was used. Pharmaceutical Medication: 2 mg aflibercept syringe 2 mg/0.05 mL Route: intravitreal, Site: Right Eye [facility]: 77596-716-67, Lot: [id number], Expiration date: 07/09/2026, Waste: 0 mL Medication Billing The medication administered today will be billed to the patient or insurance. The medication administered today was not a sample. The patient will not be utlizing the patient assistance program. Post-op Post injection exam found visual acuity is at least hand motion. the patient tolerated the procedure. there were no complications during today's treatment. The patient received written and verbal post procedure care education. The attending physician was present for the entire procedure. Notes Pt signed consent BRENDAN OD 03/06/25 us Nazanin Theodore MD PhD OPHTH CLINIC PROCEDU RES Final Result * OCT, Retina - OU - Both Eyes (05/22/2025 1:14 PM CDT) Anatomical Region Laterality Modality Head Optical Coherenc e Tomography Narrative 05/22/2025 1:14 PM CDT Right Eye Quality was good. Scan locations included subfoveal. Progression has worsened. Findings include choroidal neovascular membrane, intraretinal fluid. Left Eye Quality was good. Scan locations included subfoveal. Progression has been stable. Findings include abnormal foveal contour. Notes Right eye (OD) resolved mild paracentral subretinal fluid Left eye (OS): stable diffuse geographic atrophy us Nazanin Theodore MD PhD OPHTH TOMOGRAPHY Fin al Result * Intravitreal Injection, Pharmacologic Agent - OD - Right Eye (04/17/2025 2:59 PM CDT) Anatomical Region Laterality Modality Head Other Narrative 04/17/2025 2:59 PM CDT Time Out Informed consent was obtained after all risks, benefits and alternatives were explained to the patient. The patient understood, agreed and wished to proceed. Timeout was completed verifying the patient, procedure, laterality and allergies. Anesthesia Subconjunctival anesthesia was used, Topical anesthesia was used. Anesthetic medications included Lidocaine 2%, Tetracaine 0.5%. The anesthesia lot number is [id number]. The expiration date is 08/09/26. The manufacture of the medication is [employer]. Intravitreal Injection, Pharmacologic Agent Preparation included 5% betadine to ocular surface, 10% betadine to eyelids. A 30 gauge needle was used. Pharmaceutical Medication: 2 mg aflibercept syringe 2 mg/0.05 mL Route: intravitreal, Site: Right Eye [facility]: [id number], Lot: [id number], Expiration date: 08/09/2026, Waste: 0 mL Medication Billing The medication administered today will be billed to the patient or insurance. The medication administered today was not a sample. The patient will not be utlizing the patient assistance program. Post-op Post injection exam found visual acuity is at least hand motion. the patient tolerated the procedure. there were no complications during today's treatment. The patient received written and verbal post procedure care education. The attending physician was present for the entire procedure. Notes Pt signed consent for I'VE OD 03/06/25 Result [facility] Nazanin Theodore MD PhD OPHTH CLINIC PROCEDU RES Final Result * OCT, Retina - OU - Both Eyes (04/17/2025 2:25 PM CDT) Anatomical Region Laterality Modality Head Optical Coherenc e Tomography Narrative 04/17/2025 2:25 PM CDT Right Eye Quality was good. Scan locations included subfoveal. Progression has worsened. Findings include choroidal neovascular membrane, intraretinal fluid. Left Eye Quality was good. Scan locations included subfoveal. Progression has been stable. Findings include abnormal foveal contour. Notes Right eye (OD) mild paracentral subretinal fluid Left eye (OS): stable diffuse geographic atrophy Result [facility] Nazanin Theodore MD PhD OPHTH TOMOGRAPHY Kenneth paul Result - Final * Lipid panel (03/21/2024 11:49 AM CDT) Pathologist [facility] SCRIBED Cholesterol, Total 83 <200 EXTERNAL LAB SCRIBED HDL 49 >40 EXTERNAL LAB SCRIBED LDL 19 <100 EXTERNAL LAB SCRIBED Triglycerides 71 <150 EXTERNAL LAB Blood Result [facility] Provider LAB BLOOD ORDERABLES Edit ed Result - Final EXTERNAL LAB * (ABNORMAL) Comprehensive metabolic panel (08/09/2022 10:49 AM CDT) Glucose 139(H) 65 - 99 mg/dL [facility] Comment: Fasting reference interval For someone without known diabetes, a glucose value >125 mg/dL indicates that they may have diabetes and this should be confirmed with a follow-up test. BUN 12 7 - 25 mg/dL [facility] Creatinine 0.92 0.60 - 0.95 mg/dL [facility] eGFR 63 > OR = 60 mL/min/1. 73m2 [facility] Comment: The eGFR is based on the CKD-EPI 2020 equation. To calculate the new eGFR from a previous Creatinine or Cystatin C result, go to https://www.kidney.org/professionals/ kdoqi/gfr%5Fcalculator BUN/creat ratio NOT APPLICABLE 6 - 22 (calc) [facility] Sodium 136 135 - 146 mmol/L [facility] Potassium, pl 4.3 3.5 - 5.3 mmol/L [facility] Chloride 105 98 - 110 mmol/L [facility] CO2 26 20 - 32 mmol/L [facility] Calcium 9.0 8.6 - 10.4 mg/dL [facility] Protein, sr 6.3 6.1 - 8.1 g/dL [facility] Albumin 3.5(L) 3.6 - 5.1 g/dL [facility] GLOBULIN 2.8 1.9 - 3.7 g/dL (calc) [facility] Alb/glob ratio 1.3 1.0 - 2.5 (calc) [facility] Bilirubin, total 1.2 0.2 - 1.2 mg/dL [facility] Alk phos 57 37 - 153 U/L [facility] AST 18 10 - 35 U/L [facility] ALT (SGPT) 15 6 - 29 U/L [facility] Blood 08/09/2022 10:4 9 AM CDT 08/09/2022 10:50 AM CDT us Donte Leonard MD LAB BLOOD ORDERABLES Final Resul t [facility] [id number] [place] [phone] from Last 3 Months or Most Recently Relevant to Health Maintenance Insurance MEDICARE [facility] FED[facility]AL [facility] FEDERAL MEDICARE [facility] Care Teams Door To Door Salesman Relationship Specialty Start Date End Date Cecilia López DO PCP - General Family Medicine 03/21/20
--- OUTSIDE RECORDS SUMMARY | 2025-06-18 15:52 | XMS_ITS ---
Author Organization [facility] Address [address] [place] [address] Care Team Providers Care Manager Pricing Name Role Phone Cecilia López DO Primary Care Provider +1- [phone] Active Problems Problem Noted Date Diagnosed Date 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 Theodore Keratitis, herpetic OD 02/03/2023 Assessment & Plan (07/05/2023 2:41 PM CDT): Scar reducing w/ central clearing EDUCATION REVIEWER 20/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 Stock 6-8mos Assessment [...] as needed Coronary artery disease invo lving [place] coronary artery of [place] heart 06/23/2021 Overview (06/23/2021): Added automatically from request for surgery [id number] Advanced nonexudative age-re lated macular degeneration of [...] PRN Assessment & Plan (11/14/2020 9:01 AM SEX THERAPIST): OD Hx of superior edema - improved [...] -monitor Assessment & Plan (10/17/2018 11:51 AM SEX THERAPIST): Measured today -monitor Assessment & Plan (06/06/2018 [...] Lifetime Dose Automatic Entry Manual Entr y Fluoro Time 19 minutes 0 minutes 19 minutes Air kerma at the reference point (Ka,r) 596 mGy 0 mGy 596 mGy Resolved Problems Problem Noted Date Diagnosed Date Resolved Date History of malignant neoplas m of other parts of uterus 12/19/2018 12/19/2018 Overview (12/19/2018): Uterine Cancer - (Added by TW Conv) Status post PKP OS '06 07/18/201802/16 Assessment & Plan (10/17/2018 11:50 AM SEX THERAPIST): -stable vision -continue preservative free dexamethasone once daily No intraocular inflammation or concern for rejection although fine vessels seen towards interface superior nasally -monitor with repeat exam in 3-6 months. 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
--- OUTSIDE RECORDS SUMMARY | 2025-06-18 15:52 | XMS_ITS | Encounter Summary ---
Author Organization [facility] Address 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 Doc Garland MD [address] [facility] [address] [place], [place] [id number] Other and Unspecified Angina Pectoris Social History Tobacco Use Types Packs/Day Years Used Date Smoking Tobacco: Never Assessed Comments Unknown Sex and Gender Information Value Date Recorded Sex Assigned at Not on file 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 Gender Identity Not on file Sexual Orientation Not on file documented as of this encounter Plan of Treatment Upcoming Encounters Date Type Department Care Team (Late st Contact Info) Description 07/23/2025 4:30 PM CDT Telephone Check Up [facility] Oncology and Hematology - [place] [address] [facility] [address] [place] [address] Devante Gaston MD [address] [facility] [address] [place] [address] documented as of this encounter Procedures Procedure Name Priority Date/Time Associated Diagnosis Comments CL CORONARY ANGIOGRAM Routine 05/14/2008 3:55 PM CDT documented in this encounter Results * CL CORONARY ANGIOGRAM (05/14/2008 3:55 PM CDT) Narrative INTERFACE SYSTEM - 05/14/2008 3:55 PM CDT [facility] [address] [place] [address] [email or web address] Cardiac Catheterization Comprehensive Report Patient: Didi Good Study ID: [id number] Gender: F : 1940 Age: 67 years Race: Room: Bed: Height: 66 in ( 167.6 cm ) Study Date: May 14, 2008 Patient status: Outpatient Weight: 152.9 lb ( 69.5 kg ) Access. #: [id number] POC: Attending MD: Catherine Performing MD: Catherine [...] 15:37:28 Procedure Note Provider, Historical - 05/14/2008 [address] [address] [place] [address] [email or web address] Cardiac Catheterization Comprehensive Report Patient: Didi Good Study ID: [id number] Gender: F : 1940 Age: 67 years Race: Room: Bed: Height: 66 in ( 167.6 cm ) Study Date: May 14, 2008 Patient status: Outpatient Weight: 152.9 lb ( 69.5 kg ) Access. #: [id number] POC: Attending MD: Catherine Performing MD: Catherine [...] Garland MD Confirmed May 14, 2008 15:37:28 us Doc Garland MD FLUOROSCOPY ORDERABLES Final Result INTERFACE SYSTEM Refer to clinic/hospital department documented in this encounter Visit Diagnoses Diagnosis Other and unspecified angina pectoris documented in this encounter Care Teams Supply Chain Tech Relationship Specialty Start Date End Date Cecilia López DO [facility] [facility] [address] [place] [address] PCP - General Family Practice 06/18/25 documented as of this encounter
--- OUTSIDE RECORDS SUMMARY | 2025-06-18 15:52 | XMS_ITS | Clinical Summary ---
Author Organization [facility] Filippo Oneil Address [address] [place] [address] Care Team Providers Care President And Chief Operating Officer Name Role Phone KelechitialoCecilia vance Primary Care Provider [phone]- [phone] Allergies No known active allergies Medications acyclovir (ZOVIRAX) 800 mg tablet Take 800 mg by mouth 2 times daily. 4 Active amLODIPine (NORVASC) 10 mg tablet Take 10 mg by mouth daily at bedtime. 5 Active atorvastatin (LIPITOR) 20 mg tablet Take 20 mg by mouth daily at bedtime. 5 Active calcium as CARBONATE-vitam in D3 (CALTRATE 600+D) 600 mg-5 mcg (200 unit) Tablet Take 1 Tablet by mouth daily. Active clopidogreL (PLAVIX) 75 mg Tablet Take 75 mg by mouth daily. Active dexAMETHasone sodium phosphate (DEXASOL) 0.1 % solution INSTILL 1 DROP INTO RIGHT EYE TWICE DAILY AND 1 DROP INTO THE LEFT EYE ONCE DAILY Active DOCOSAHEXAENOIC ACID ORAL Take 1 Capsule by mouth daily. Active Synjardy XR 25-1,000 mg tablet, IR & ER, biphasic 24hr Take 1 Tablet by mouth daily in the morning. Active escitalopram oxalate (LEXAPRO) 20 mg tablet Take 1 Tablet by mouth daily. 5 Active ferrous sulfate 325 mg (65 mg iron) tablet Take 325 mg by mouth 2 times daily. Active latanoprost (XALATAN) 0.005 % solution 1 Drop by Ophthalmic route daily at bedtime. 5 04/10/20 26 Active metFORMIN (GLUCOPHAGE XR) 500 mg Extended Release 24 hour tablet Take 500 mg by mouth. Active metoprolol succinate (TOPROL XL) 25 mg Extended Release 24 hour tablet Take 12.5 mg by mouth daily. Active multivitamin (DAILY-ZORAIDA) tablet Take 1 Tablet by mouth daily. Active omeprazole (PriLOSEC) 20 mg Capsule, Delayed Release(E.C.) Take 20 mg by mouth daily. Active Gemtesa 75 mg Tablet Take 75 mg by mouth daily. Active insulin detemir U-100 (LEVEMIR) 100 unit/mL pen syringe Inject 8 Units by subcutaneous injection daily at bedtime. Active cyanocobalamin 1,000 mcg Tablet Take 1,000 mcg by mouth daily. Active magnesium OXIDE 500 mg Capsule Take 500 mg by mouth daily. Active Active Problems Problem Noted Date Diagnosed Date Chronic anemia 06/18/2025 Easy bruising 06/18/2025 Encounters Date Type Department Care Team Description 06/18/2025 1:30 PM CDT Office Visit [facility] Oncology and Hematology [place] [address] Thad Akbar [address] [address] Astrid Alcantara MD Chronic anemia (Primary Dx); Easy bruising from Last 3 Months Family History Medical History Relation Name Comments Brain Cancer Daughter 1 glioblastoma Heart Disease Daughter 1 No Known Problems Daughter 2 No Known Problems Daughter 3 Heart Disease Father Breast Cancer Mother Diabetes Mother Heart Disease Mother Relation Name Status Comments Daughter 1 Daughter 2 Alive Daughter 3 Alive Father Mother Social History Tobacco Use Types Packs/Day Years Used Date Smoking Tobacco: Never Smokeless Tobacco: Never Tobacco Cessation:Counseling Given: Not Answered Alcohol Use Standard Drinks/Week Comments Yes 0 (1 standard drink = 0.6 oz pur e alcohol) Occasionally Comments Unknown Sex and Gender Information Value Date Recorded Sex Assigned at Not on file 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 Gender Identity Not on file Sexual [...] Mass Index 21.46 06/18/2025 1:17 PM CDT Plan of Treatment Upcoming Encounters Date Type Department Care Team (Late st Contact Info) Description 07/23/2025 4:30 PM CDT Telephone Check Up [facility] On[facility] and Hematology - [place] [address] [facility] [address] [place] [address] Devante Gaston MD [address] [facility] [address] [place] [address] Health Maintenance Due Date Last Done Comments Traditional Medicare (ACO) A nnual Wellness Visit 1959 ZOSTER VACCINE (1 of 2) 1990 OSTEOPOROSIS SCREENING 2005 RSV VACCINE (60+ or ) (1 - 1-dose 75+ series) 2015 DTAP/TDAP/TD VACCINES (1 - Tdap) 05/31/2017 05/30/20 17, 07/25/2003 INFLUENZA VACCINE (#1) 2025 , 07/18/2020, 06/27/2019, Additional history exists PNEUMOCOCCAL VACCINE 50+ YEARS Completed 1 , 04/24/2015, 07/02/2008 Insurance MEDICARE PART A AND B [facility] [employer] Care Teams President And Chief Operating Officer Relationship Specialty Start Date End Date Cecilia López DO [facility] [facility] [address] [place] [address] PCP - General Family Practice 06/18/25
[2025-06-18 16:38] LABS: Alanine Aminotransferase 21 U/L (6-35); Albumin Level 4.0 g/dL (3.5-5.1); Alkaline Phosphatase 77 U/L (38-126); Anion Gap 7 mmol/L (4-12); Aspartate Amino Transferase 54 U/L (14-36); Bilirubin,Total 0.8 mg/dL (0.2-1.3); Blood Urea Nitrogen 21 mg/dL (7-17); Calcium 9.6 mg/dL (8.4-10.2); Carbon Dioxide 26 mmol/L (22-30); Chloride 102 mmol/L (98-107); Estimated Glomerular Filt Rate 50; Glucose 251 mg/dL (65-110); Potassium 4.4 mmol/L (3.4-5.0); Sodium 135 mmol/L (137-145); Total Protein 7.7 g/dL (6.3-8.2)
[2025-06-18 16:39] LABS: Iron 64 ug/dL (37-170)
[2025-06-18 16:42] LABS: INR 1.0; Prothrombin Time 13.7 Seconds (11.1-14.7)
[2025-06-18 16:43] LABS: Partial Thromboplastin Time 27.9 Seconds (22.3-36.8)
[2025-06-18 16:48] LABS: Percent Iron Saturation 25 % (20-50)
[2025-06-18 17:20] LABS: Ferritin 199.00 ng/mL (11.1-264)
[2025-06-18 17:49] LABS: Vitamin B12 507.0 pg/mL (239-931)
[2025-06-19 12:08] LABS: Albumin 3.5 g/dL (2.9-4.4); Alpha-1-Globulin 0.2 g/dL (0.0-0.4); Alpha-2-Globulin 0.8 g/dL (0.4-1.0); Gamma Globulin 1.7 g/dL (0.4-1.8)
[2025-06-19 18:08] LABS: Free Lambda Lt Chains, Serum 26.6 mg/L (5.7-26.3); Kappa/Lambda Ratio, Serum 7.96 (0.26-1.65)
== END 2025-06-18 14:10 | disposition home or self-care (01) ==
LOC: ANHLAB 14:10
PROVIDERS: PCP Family Medicine; Visit Provider Internal Medicine
DX: D64.9 Anemia, unspecified (principal); R23.3 Spontaneous ecchymoses
CPT/HCPCS: 36415; 80053; 82607; 82728; 82746; 83521; 83540; 83550; 83615; 83921; 84155; 84165; 85025; 85046; 85610; 85730; 86364

== ENCOUNTER 2025-09-25 10:34 | Emergency (ER) | payer MEDICARE, BC, SELFPAY ==
--- NOTE | ~2025-09-25 | XR_ITS ---
EXAMINATION: XR chest 2V DATE: 09/25/2025 12:47 INDICATION: Cough TECHNIQUE: Frontal and lateral views of the chest were obtained. COMPARISON: March 11, 2011 FINDINGS: Scattered fibrotic appearing changes present with no focal consolidation, effusion or definite lymphadenopathy. Heart size normal. No pneumothorax or subphrenic free air seen. IMPRESSION: 1. No focal acute process. Reviewed, dictated and finalized at location A. SSORIES REPAIRER IMPRESSION: 1. No focal acute process.
[2025-09-25 10:45] VITALS: BP 152/64; PULSE 82; RESP 18; TEMP 37.1; O2SAT 100
--- NOTE | 2025-09-25 12:20 | PC.NURSE ---
Dr. Powell at bedside talking with pt. adn pt. visitor.
--- NOTE | 2025-09-25 12:24 | ED.URI ---
HPI - URI/Sore Throat General Chief Complaint: Upper Respiratory Infection Stated Complaint: COUGHING X 2WKS Time Seen by Provider: 09/25/25 12:02 Source: patient and family Mode of arrival: ambulatory Limitations: no limitations History of Present Illness HPI Narrative: This is a an 84-year-old female with history of diabetes, hypertension who presents to the ED for cough and congestion. Patient states for the past 2 weeks, she has been having intermittent nasal congestion with a persistent cough. She occasionally has coughing fits where she does get short of breath. Denies chest pain at this time. Notes that she does have left shoulder discomfort from the amount of coughing. She has seen her PCP for this and was given a prescription for Augmentin last week which has not been helping. She saw her PCP again 2 days ago was given a prescription for steroids but continues to have the symptoms. No known sick contacts. Denies fevers, chills. Notes a 7 lb weight loss in the last 2 weeks. Related Data Home Medications ?Medication ?Instructions ?Recorded ?Confirmed ?Last Taken ?Type latanoprost 0.005 % eye drops 1 drop ophthalmic (eye) HS 09/11/19 09/20/25 04/01/20 History omega 3-dha 120 mg-epa 180 mg-fish 1 cap PO QAM 12/11/19 09/20/25 04/01/20 History oil 600 mg capsule (Extreme Noble-3) omeprazole 20 mg capsule,delayed 20 mg PO DAILY 12/11/19 09/20/25 04/01/20 History release lancets 28 gauge (FreeStyle 03/15/22 09/20/25 Unknown History Lancets) calcium 600 mg-D3 800 unit-mag11 1 tablet PO DAILY 11/25/22 09/20/25 Unknown History 50 pp-epue-hatvji-chico-s.borat tablet (Caltrate 600-D Plus Minerals) cyanocobalamin (vitamin B-12) 1,000 mcg PO BID 11/25/22 09/20/25 Unknown History 1,000 mcg tablet (Vitamin B-12) irtdalqf-nqcx-pwbw 8 mg-folic 400 1 tablet PO DAILY 11/25/22 09/20/25 Unknown History mcg-K 50 mcg-lutein 300 mcg tablet (Centrum Silver Women) vit C 250 mg-vit E 90 mg-zinc 40 1 tablet PO BID 11/25/22 09/20/25 Unknown History mg-copper 1 ne-cvioys-ymwcru capsule (PreserVision AREDS-2) acyclovir 800 mg tablet 800 mg PO BID 10/06/23 09/20/25 Unknown History cholecalciferol (vitamin D3) 25 50 mcg PO DAILY 11/24/23 09/20/25 Unknown History mcg (1,000 unit) capsule amlodipine 5 mg tablet 10 mg PO DAILY 12/10/24 09/20/25 Unknown History atorvastatin 20 mg tablet mg PO 03/21/25 09/20/25 Unknown History dexamethasone sodium phosphate 0.1 EACH EYE 03/21/25 09/20/25 Unknown History % eye drops magnesium 250 mg tablet 250 mg PO DAILY 03/21/25 09/20/25 Unknown History vibegron 75 mg tablet (Gemtesa) 75 mg PO DAILY 03/21/25 09/20/25 Unknown History aflibercept 2 mg/0.05 mL 2 mg intravitreal ONCE 08/20/25 09/20/25 Unknown History intravitreal solution for injection insulin degludec 100 unit/mL (3 6 unit subcut DAILY 08/20/25 09/20/25 Unknown History mL) subcutaneous pen (Tresiba FlexTouch U-100 insulin) propylene glycol 0.6 % eye drops 1 drp EACH EYE DAILY PRN 08/20/25 09/20/25 Unknown History (Systane Complete) Allergies Allergy/AdvReac Type Severity Reaction Status Date / Time No Known Allergies Allergy Unknown Verified 09/25/25 10:35 Review of Systems Review of Systems: Gen.: Denies fevers or chills Eyes: Denies eye pain or visual change ENT: As per HPI Respiratory: As per HPI CV: Denies chest pain or palpitations GI: Denies abdominal pain nausea, emesis or diarrhea denies burning, urgency, frequency or hematuria Musculoskeletal: Denies back pain or muscle pain Neuro: Denies numbness, tingling, weakness or focal weakness Skin: Denies rash Except as documented, all other systems reviewed and negative PMFSH Past Medical History Medical History Malignant neoplasm of vagina History of uterine cancer Glaucoma Osteoarthritis Hypertension Osteoporosis Malignant neoplasm of uterus, part unspecified Mixed hyperlipidemia Type 2 diabetes mellitus without complications Surgical History Surgical History History of corneal transplant History of gynecologic surgery History of hysterectomy Family History Family History Mother Diabetes mellitus, Onset Age: 69 Family history of glaucoma, Onset Age: 69 Hypertension, Onset Age: 69 Family history of elevated blood lipids, Onset Age: 69 Family history of cardiovascular disease, Onset Age: 69 Acute myocardial infarction, Onset Age: 69 Family history of coronary artery disease, Onset Age: 69 Family history of malignant neoplasm of breast in first degree relative Father Depression, Onset Age: 76 Family history of elevated blood lipids, Onset Age: 76 Family history of cardiovascular disease, Onset Age: 76 Acute myocardial infarction, Onset Age: 76 Family history of coronary artery disease, Onset Age: 76 Grandparent Hypertension Family history of cardiovascular disease Cerebrovascular accident Daughter Glioblastoma Social History Social History Social History: Caffeine-coffee Smoking status: Never smoker Second hand tobacco smoke exposure: No Alcohol intake: current Drinks per week: 5 Alcohol use details: Moderate Substance use: never Substance use type: does not use Lack of Transportation: No Lack of Food: Never True Current Housing: I Have Housing Concerned About Future Housing: No Difficulty Paying Gas/Electric Bills: No Difficulty Paying for Meds: No Currently Unemployed: No Education: High School Diploma/GED Difficulty w/ Childcare or Family Care: No Living arrangements: with family Additional living arrangements comments: - Gurpreet James Occupation/Education: retired Gender identity (if verbalized by the patient): Female Sexual Orientation (if Verbalized by the Patient): Straight or Heterosexual Spiritual care concerns: No Exam Narrative: APPEARANCE: No acute distress, nontoxic, resting in bed EYES: EOMI HEENT: Normocephalic, atraumatic, OMM RESPIRATORY: No respiratory distress Clear to auscultation bilaterally with no rhonchi wheezing or rales. CARDIOVASCULAR: Regular rate and rhythm without murmurs rubs or gallops. ABDOMINAL: Nondistended MUSCULOSKELETAl: Moves all extremities. No clubbing, cyanosis or edema. NEURO: Awake and alert. Following commands, speech normal, no focal deficits SKIN:: Warm, dry. No rashes lesions or abrasions PSYCHIATRIC: Normal affect/mood, Course Vital Signs Vital signs: Vital Signs Temperature 98.7 F 12/17/25 10:45 Pulse Rate 82 09/25/25 10:45 Respiratory Rate 18 09/25/25 10:45 Blood Pressure 152/64 H 09/25/25 10:45 Pulse Oximetry 100 09/25/25 10:45 Oxygen Delivery Room Air 09/25/25 10:45 Temperature 98.7 F 09/25/25 14:00 Pulse Rate 85 09/25/25 14:00 Respiratory Rate 16 09/25/25 14:00 Blood Pressure 137/92 H 09/25/25 14:00 Pulse Oximetry 97 09/25/25 14:00 Oxygen Delivery Room Air 09/25/25 12:23 MDM MDM Narrative Medical decision making narrative: 84-year-old female Presenting for cough and congestion. On initial evaluation patient was in no acute distress afebrile, hemodynamic stable. Differentials include but are not limited to: Viral syndrome, strep pharyngitis, viral pharyngitis, sinusitis, laryngitis, JUNIOR STAFF ACCOUNTANT, RPA, cancer Notable exam findings: Heart and lungs clear. I personally reviewed the patient's lab result. Notable lab findings: Leukocytosis at 12.4. Hyponatremic at 132. Hyperglycemic at 283. COVID/flu/RSV negative. I personally reviewed the patient's images and interpret as follows: Chest x-ray showed no acute process. Read by radiologist who noted pulmonary fibrosis Suspect patient's symptoms are due to a viral illness and possibly due to an underlying pulmonary fibrosis. Because of this, she was given albuterol treatment. She did have a slight improvement of her symptoms. Given the x-ray findings she was given a referral to pulmonology for further evaluation. Patient and family were agreeable to this plan. Given strict return precautions. Differential Diagnosis Differential Diagnosis: Viral syndrome, strep pharyngitis, viral pharyngitis, sinusitis, laryngitis, JUNIOR STAFF ACCOUNTANT, RPA, cancer Lab Data 09/25/25 12:32 09/25/25 12:32 Labs: Lab Results 09/25/25 Range/Units 12:32 WBC 12.4 H (4.5-10.0) K/mm3 RBC 3.54 L (4.2-5.4) M/mm3 Hgb 12.0 (12.0-15.0) g/dL Hct 36.9 L (37.0-47.0) % MCV 104.2 H (80-100) fl MCH 33.9 (26-34) pg MCHC 32.5 (32-36) g/dl RDW 13.2 (11.5-14.5) % Plt Count 287 (150-375) k/mm3 MPV 8.9 (7.4-10.4) fl Immature Gran % (Auto) 0.6 H (0-0.5) % Neut % (Auto) 60.8 (45.5-73.1) % Lymph % (Auto) 31.7 (18.3-44.2) % Fisher % (Auto) 5.4 (2.6-8.5) % Eos % (Auto) 1.2 (0-4.4) % Baso % (Auto) 0.3 (0.2-1.2) % Lymph # (Auto) 3.94 H (0.9-3.2) K/mm3 Fisher # (Auto) 0.7 H (0.1-0.6) K/mm3 Eos # (Auto) 0.2 (0-0.3) K/mm3 Baso # (Auto) 0.0 (0.0-0.1) K/mm3 Abs Immat Gran (auto) 0.08 H (0.00-0.031) K/mm3 Absolute Neuts (auto) 7.6 H (1.3-6.7) K/mm3 Absolute Nucleated RBC 0.000 (0.0-0.012) K/mm3 Nucleated RBC % 0.0 (0.0-0.2) % Sodium 132 L (137-145) mmol/L Potassium 4.7 (3.4-5.0) mmol/L Chloride 98 (98-107) mmol/L Carbon Dioxide 27 (22-30) mmol/L Anion Gap 7 (4-12) mmol/L BUN 25 H (7-17) mg/dL Creatinine 0.94 (0.7-1.0) mg/dL Estim Creat Clear Calc 33 ml/min Estimated GFR 57 L (59 - ) Glucose 283 H (65-110) mg/dL Calcium 9.1 (8.4-10.2) mg/dL Total Bilirubin 0.7 (0.2-1.3) mg/dL AST 46 H (14-36) U/L ALT 28 (6-35) U/L Alkaline Phosphatase 84 (38-126) U/L Total Protein 7.5 (6.3-8.2) g/dL Albumin 3.7 (3.5-5.1) g/dL Influenza A (RT-PCR) Negative (Negative) Influenza B (RT-PCR) Negative (Negative) RSV (RT-PCR) Negative (Negative) SARS-CoV-2 RNA (RT-PCR) Negative (Negative) Imaging Data Radiologist's impression: ITS Impressions Chest X-Ray 09/25/25 12:50 IMPRESSION: 1. No focal acute process. Discharge Plan Discharge Clinical Impression: Bronchitis Cough Qualifiers: Cough type: subacute Qualified Code(s): R05.2 - Subacute cough Patient Disposition: Home Condition: Stable Instructions: Antibiotic Form, Acute Bronchitis (ED) Additional Instructions: You may have a bronchitis causing her symptoms. You were given a prescription for albuterol and doxycycline, take these as prescribed. Your chest x-ray also noted pulmonary fibrosis, this may need further evaluation by a investment executive, your given a referral to [facility], follow up with his office for further evaluation. Follow-up with your PCP in the next week for re-evaluation. Return to the ED for any new or worsening symptoms. Patient Language: Prydeinig Prescriptions: New albuterol sulfate [Ventolin HFA] 90 mcg/actuation HFA aerosol inhaler 1 inh inhalation Q4H PRN (Reason: shortness of breath or wheezing) Qty: 8.5 0RF doxycycline hyclate 100 mg capsule 100 mg PO BID Qty: 10 0RF No Action acyclovir 800 mg tablet 800 mg PO BID Caltrate 600-D Plus Minerals 600 mg calcium- 800 unit-50 mg tablet 1 tablet PO DAILY Centrum Silver Women 8 mg iron-400 mcg-300 mcg tablet 1 tablet PO DAILY cyanocobalamin (vitamin B-12) [Vitamin B-12] 1,000 mcg tablet 1,000 mcg PO BID PreserVision AREDS-2 250-90-40-1 mg capsule 1 tablet PO BID Digestive Health Probiotic 10 billion cell capsule 1 cap PO DAILY Qty: 60 0RF magnesium 250 mg tablet 250 mg PO DAILY Gemtesa 75 mg tablet 75 mg PO DAILY atorvastatin 20 mg tablet PO dexamethasone sodium phosphate 0.1 % drops EACH EYE benzonatate 100 mg capsule 100 mg PO TID PRN (Reason: cough) Qty: 30 0RF amoxicillin-pot clavulanate 875-125 mg tablet 1 tablet PO BID Qty: 14 0RF latanoprost 0.005 % drops 1 drop EACH EYE HS Extreme Noble-3 120-180-600 mg capsule 1 cap PO QAM omeprazole 20 mg capsule,delayed release(DR/EC) 20 mg PO DAILY (DME) lancets [FreeStyle Lancets] 28 gauge misc See Rx Instructions .Route Rx Instructions: As directed cholecalciferol (vitamin D3) 25 mcg (1,000 unit) capsule 50 mcg PO DAILY amlodipine 5 mg tablet 10 mg PO DAILY insulin degludec [Tresiba FlexTouch U-100] 100 unit/mL (3 mL) insulin pen 6 unit subcut DAILY Systane Complete 0.6 % drops 1 drp EACH EYE DAILY PRN aflibercept 2 mg/0.05 mL solution 2 mg intravitreal ONCE Rx Instructions: every 5-6 weeks - Wash eliseo Theodore ferrous sulfate [FeroSul] 325 mg (65 mg iron) tablet See Rx Instructions .ROUTE BID Qty: 180 1RF Dose Instruction: TAKE 1 TABLET BY MOUTH DAILY Rx Instructions: TAKE 1 TABLET BY MOUTH DAILY twice a day; (DME) FreeStyle Test Strip See Rx Instructions .Route Qty: 100 12RF Rx Instructions: BID metformin 500 mg tablet extended release 24 hr 500 mg PO DAILY Qty: 90 1RF Rx Instructions: Take with dinner metoprolol succinate 25 mg tablet extended release 24 hr See Rx Instructions .ROUTE .COMPLEX Qty: 45 1RF Dose Instruction: TAKE 1/2 TABLET BY MOUTH DAILY Rx Instructions: TAKE 1/2 TABLET BY MOUTH DAILY Synjardy XR 25-1,000 mg tablet, IR - ER, biphasic 24hr 1 tablet PO QAM Qty: 90 1RF (DME) pen needle, diabetic [Novofine 32] 32 gauge x 1/4 needle See Rx Instructions .ROUTE .COMPLEX Qty: 100 1RF Dose Instruction: DIRECTED Rx Instructions: DIRECTED clopidogrel 75 mg tablet 75 mg PO DAILY Qty: 90 1RF methylprednisolone [Medrol (Fredy)] 4 mg tablets,dose pack See Rx Instructions PO PER PKG DIR Qty: 21 0RF Rx Instructions: PO PER PKG DIR escitalopram oxalate 20 mg tablet See Rx Instructions .ROUTE .COMPLEX Qty: 90 1RF Dose Instruction: TAKE 1 TABLET BY MOUTH DAILY Rx Instructions: TAKE 1 TABLET BY MOUTH DAILY Follow-up/Referrals: Cecilia López DO [Primary Care Provider, Family Practice] Eddy Saha MD [Physician, Pulmonology]
--- OUTSIDE RECORDS SUMMARY | 2025-09-25 12:33 | XMS_ITS ---
Author Organization [facility] Address [address] [place] [address] Care Team Providers Care Research Mechanic Name Role Phone Cecilia López DO Primary Care Provider +1- [phone] Active Problems Problem Noted Date Diagnosed Date 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 Theodore Keratitis, herpetic OD 02/03/2023 Assessment & Plan (07/05/2023 2:41 PM CDT): Scar reducing w/ central clearing SUPERVISOR WATERPROOFING 20/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 Stock 6-8mos Assessment [...] as needed Coronary artery disease invo lving eagle coronary artery of eagle heart 06/23/2021 Overview (06/23/2021): Added automatically from request for surgery [id number] Advanced nonexudative age-re lated macular degeneration of [...] PRN Assessment & Plan (11/14/2020 9:01 AM DETECTIVE AND INTELLIGENCE ANALYST): OD Hx of superior edema - [...] -monitor Assessment & Plan (10/17/2018 11:51 AM DETECTIVE AND INTELLIGENCE ANALYST): Measured today -monitor Assessment & Plan [...] 07/18/201802/16 Assessment & Plan (10/17/2018 11:50 AM DETECTIVE AND INTELLIGENCE ANALYST): -stable vision -continue preservative free dexamethasone once daily No intraocular inflammation or concern for rejection although fine vessels seen towards interface superior nasally -monitor with repeat exam in 3-6 months. 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
--- OUTSIDE RECORDS SUMMARY | 2025-09-25 12:34 | XMS_ITS | Clinical Summary ---
Author Organization [facility] Address [address] [place] [address] Care Team Providers Care Claim Clerk Name Role Phone KelechiitaloCecilia vance Primary Care Provider +1- [phone] Allergies No known active allergies Medications calcium carbonate-vitami n D3 1500 mg (600 mg elemental) -200 units per tablet Take 1 tablet by mouth daily Active omega 0-iiu-yst-fish oil 100-160-1,000 mg capsule Take 1 capsule [...] times a day with meals Active vit C,P-Nu-ynlab-lut ein-zeaxan 250-90-40-1 mg capsule Take 1 capsule [...] EVERY NIGHT 90 tablet 3 4 Active metoprolol XL (TOPROL-XL) 25 mg extended release tablet Take 0.5 tablets (12.5 mg total) by mouth daily 3 Active amLODIPine (NORVASC) 10 mg tablet Take 1 tablet (10 mg total) by mouth nightly 90 tablet 6 5 Active alendronate (FOSAMAX) 70 mg tablet [...] 75 mg by mouth daily 5 Active acyclovir (ZOVIRAX) 800 mg tablet TAKE 1 TABLET(800 MG) BY MOUTH TWICE DAILY 180 tablet 3 5 Active dexAMETHasone (DECADRON) 0.1 % ophthalmic solution INSTILL 1 DROP INTO RIGHT EYE TWICE DAILY AND 1 DROP INTO THE LEFT EYE ONCE DAILY 10 mL 3 5 Active atorvastatin (LIPITOR) 20 mg tablet TAKE 1 TABLET(20 MG) BY MOUTH EVERY NIGHT 90 tablet 1 5 Active Hospital, Clinic, or Other Facility Administered Medication Ordered Dose Route Frequency Start Date End Date Status aflibercept syringe (EYLEA) 2 mg/0.05 mL intraocular syringe 2 mgIndications:Exudative age-related macular degeneration of right eye with active choroidal neovascularization (HCC) 2 mg One-Time Injection 09/03/2025 5 Ended Active Problems Problem Noted Date Diagnosed Date 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 Theodore Keratitis, herpetic OD 02/03/2023 Assessment & Plan (07/05/2023 2:41 PM CDT): Scar reducing w/ central clearing LIFE ENRICHMENT SPECIALIST 20/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 Stock 6-8mos Assessment [...] as needed Coronary artery disease invo lving quinault coronary artery of quinault heart 06/23/2021 Overview (06/23/2021): Added automatically from request for surgery [id number] Advanced nonexudative age-re lated macular degeneration of [...] PRN Assessment & Plan (11/14/2020 9:01 AM GO CART MECHANIC): OD Hx of superior edema - improved [...] -monitor Assessment & Plan (10/17/2018 11:51 AM GO CART MECHANIC): Measured today -monitor Assessment & Plan (06/06/2018 12:01 PM CDT): Saw Dr Tejada, recommended observation Increased frequency of urination 12/13/2017 History of endometrial cancer 12/08/2016 Fuchs' corneal dystrophy 07/01/2016 Assessment & Plan (07/06/2022 3:42 PM CDT): 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 06/06/201802/16 Assessment & Plan (10/17/2018 11:50 AM GO CART MECHANIC): MCE superiorly, measured today -stable vision -continue [...] Encounters Date Type Department Care Team Description 09/03/2025 11:30 AM GO CART MECHANIC Office Visit [facility] Medicine Ophthalmology [address] [place] [address] [address] Nazanin Theodore MD PhD Exudative age-related macular degeneration of right eye with active choroidal neovascularization (HCC) (Primary Dx) 07/31/2025 1:30 PM CDT [facility] [place] [facility] [address] [place] [address] Nazanin Theodore MD PhD Exudative age-related macular degeneration of right eye with active choroidal neovascularization (HCC) (Primary Dx); 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 07/23/2025 Telephone [facility] Medicine Ophthalmology [address] [place] [address] Nazanin Theodore MD PhD New symptoms 06/26/2025 2:00 PM CDT Office Visit [facility] Medicine Ophthalmology [address] [place] [address] Nazanin Theodore MD PhD Exudative age-related macular [...] 07/19/2018,07/19/2018 Surgical History Surgery Date Site/Laterality Comments RI COLONOSCOPY FLX DX W/COLLJ SPEC WHEN PFRMD Complete Colonoscopy - (Added by Conv) RI EXC CYST/ABERRANT BREAST TISSUE OPEN 1/> LESION [...] (Ad ded by Conv) Arthritis Diabetes mellitus Glaucoma Fuchs' corneal dystrophy Ocular migraine Hypertension Hyperlipidemia Cancer (HCC) vaginal cuff 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 Anemia Type 2 diabetes mellitus Macular degeneration of left eye SOB (shortness of breath) CAD (coronary artery disease) Frequent urination at night Diarrhea [place] (hard of hearing) Family History Medical History [...] on file Legal Sex Female 2:56 AM GO CART MECHANIC Gender Identity Not on file Sexual Orientation Not on file Obstetrics History Para Term AB IAB SAB Ectopic Multiple Livin g Live Births 3 3 3 3 Date Outcome GA Total Labor Labor/3rd Weight Sex Type Anes PTL Fadumo A1 A5 Name Clin Term Term Term Last Filed Vital Signs Vital Sign Reading Time Taken Comments Blood Pressure 136/62 12/05/2024 12:56 PM GO CART MECHANIC Pulse 59 12/05/2024 12:56 PM GO CART MECHANIC Temperature 36.9 C (98.5 F) 02/16/2023 2:03 PM CDT Respiratory Rate 16 02/16/2023 2:03 PM CDT Oxygen Saturation 99% 12/05/2024 12: 56 PM GO CART MECHANIC Inhaled Oxygen Concentration - - Weight 55.7 kg (122 lb 12.8 oz) 025 12:56 PM GO CART MECHANIC Height 162.6 cm (5' 4) 12/05/2024 12:5 6 PM GO CART MECHANIC Body Mass Index 21.08 12/05/2024 12:56 PM GO CART MECHANIC Plan of Treatment Health Maintenance Due Date Last Done Comments Albumin Creatinine Ratio, Urine 1940 Depression Screening 1940 Hemoglobin A1C 1940 Osteoporosis Screening-Bone Density Scan 1940 Foot Exam 1940 Hepatitis B Screening 1958 Zoster Vaccine (1 of 2) 1990 Well Visit 65+ 2005 DTaP/Tdap/Td Vaccine (1 - Tdap) 05/31/2017 7, 07/25/2003 eGFR 08/09/2023 08/09/2022, 06/11, 06/19/2021, Additional history exists Fall Risk Assessment 08/12/2023 08/12/2022, 07/15/20 21 Lipid Panel 03/21/2025 03/21/2024, 06/04/2023, 07/23/2022, Additional history exists Covid-19 Vaccine (2024-2 6 season) 2025 03/26/2022, 09/18/2021, 01/02/2021, Additional history exists Influenza Vaccine (#1) 2025 , 07/18/2020, 06/27/2019, Additional history exists Dilated Eye Exam 01/23/2026 01/23/2025, , 11/10/2022, Additional history exists Pneumococcal vaccine 65+ Completed 018, 07/19/2018, 04/24/2015, Additional history exists Medical Devices Implanted Type Area Paradi Tender Device Identifier Shelf Expiration Date Model / Serial / Lot Shockwave Medical [id number] Catheter 3.5x12 Mm Shockwave C2 Ivl - [id number] Implanted:Qty: 1 on 07/03/20[facility]/07/2023 [id number] 12 / / [employer]a [id number] Synergy 3.5mm 24mm 144cm Radiopaque 1 Access Port Inflation Lumen - [id number] Implanted:Qty: 1 on 07/03/2021 by Donte Leonard MD at [facility] [employer] 01/15/2023 [id number] / / [employer] Mynx Control 6-7fr 2 Mode Balloon Catheter Sealant Lock Syringe [id number] - [id number] Implanted:Qty: 1 on 08/12/2022 by Donte Leonard MD at [facility] [employer] 06/09/2024 [id number] / / [id number] Procedures Procedure Name Priority Date/Time Associated Diagnosis Comments INTRAVITREAL INJECTION, PHARMACOLOGIC AGENT - OD - RIGHT EYE Routine 09/03/2025 1:34 PM GO CART MECHANIC Exudative age-related macular degeneration of right eye with active choroidal neovascularization (HCC) OCT, RETINA - OU - BOTH EYES Routine 09/03/2025 1:17 PM GO CART MECHANIC Exudative age-related macular degeneration of right eye with active choroidal neovascularization (HCC) INTRAVITREAL INJECTION, PHARMACOLOGIC AGENT - OD - RIGHT EYE Routine 07/31/2025 1:58 PM CDT Exudative age-related macular degeneration of right eye with active choroidal neovascularization (HCC) OCT, RETINA - OU - BOTH EYES Routine 07/31/2025 1:24 PM CDT 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 INTRAVITREAL INJECTION, PHARMACOLOGIC AGENT - OD - RIGHT EYE Routine 06/26/2025 2:20 PM CDT Exudative age-related macular degeneration of right eye with active choroidal neovascularization (HCC) OCT, RETINA - OU - BOTH EYES Routine 06/26/2025 1:25 PM CDT 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 LIPID PANEL Routine 03/21/2024 11:49 AM CDT COMPREHENSIVE METABOLIC PANEL Routine 08/09/2022 10:49 AM CDT Coronary artery disease involving quinault coronary artery of quinault heart with angina pectoris Pre-procedure lab exam from Last 3 Months or Most Recently Relevant to Health Maintenance Results * Intravitreal Injection, Pharmacologic Agent - OD - Right Eye (09/03/2025 1:34 PM GO CART MECHANIC) Anatomical Region Laterality Modality Head Other Narrative 09/03/2025 1:34 PM GO CART MECHANIC Time Out Informed consent was obtained after all risks, benefits and alternatives were explained to the patient. The patient understood, agreed and wished to proceed. Timeout was completed verifying the patient, procedure, laterality and allergies. Anesthesia Subconjunctival anesthesia was used, Topical anesthesia was used. Anesthetic medications included Lidocaine 2%, Proparacaine 0.5%. The anesthesia lot number is [id number]. The expiration date is 08/09/2026. The manufacture of the medication is [employer]. Intravitreal Injection, Pharmacologic Agent Preparation included 5% betadine to ocular surface. A 30 gauge needle was used. Pharmaceutical Medication: 2 mg aflibercept syringe 2 mg/0.05 mL Route: intravitreal, Site: Right Eye ND: 22726-422-67, Lot: [id number], Expiration date: 10/08/2026, Waste: 0 mL Medication Billing The medication [...] was present for the entire procedure. Notes Consent signed for BRENDAN OD 03/06/2025 Naznain Theodore MD PhD OPHTH CLINIC PROCEDU RES Final Result * OCT, Retina - OU - Both Eyes (09/03/2025 1:17 PM GO CART MECHANIC) Anatomical Region Laterality Modality Head Optical Coherenc e Tomography Narrative 09/03/2025 1:17 PM GO CART MECHANIC Right Eye Quality was good. Scan locations included subfoveal. Progression has worsened. Findings include choroidal neovascular membrane, intraretinal fluid. Left Eye Quality was good. Scan locations included subfoveal. Progression has been stable. Findings include abnormal foveal contour. Notes Right eye (OD) stable without recurrent paracentral subretinal fluid Left eye (OS): stable diffuse geographic atrophy Nazanin Theodore MD PhD OPHTH TOMOGRAPHY Fin al Result * Intravitreal Injection, Pharmacologic Agent - OD - Right Eye (07/31/2025 1:58 PM CDT) Anatomical Region Laterality Modality Head Other Narrative 07/31/2025 1:58 PM CDT Time Out Informed consent was obtained after all risks, benefits and alternatives were explained to the patient. The patient understood, agreed and wished to proceed. Timeout was completed verifying the patient, procedure, laterality and allergies. Anesthesia Subconjunctival anesthesia was used, Topical anesthesia was used. Anesthetic medications included Lidocaine 2%, Proparacaine 0.5%. The anesthesia lot number is [id number]. The expiration date is 08/09/26. The manufacture of the medication is [employer]. Intravitreal Injection, Pharmacologic Agent Preparation included 5% betadine to ocular surface, 10% betadine to eyelids. A 30 gauge needle was used. Pharmaceutical Medication: 2 mg aflibercept syringe 2 mg/0.05 mL Route: intravitreal, Site: Right Eye [facility]: 23150-905-15, Lot: [id number], Expiration date: 08/09/2026, Waste: 0 mL Medication [...] Notes Pt signed consent for BRENDAN OD 03/06/25 Result Yanira hTeodore MD PhD OPHTH CLINIC PROCEDU RES Final Result * OCT, Retina - OU - Both Eyes (07/31/2025 1:24 PM CDT) Anatomical Region Laterality Modality Head Optical Coherenc e Tomography Narrative 07/31/2025 1:24 PM CDT Right Eye Quality was good. Scan locations included subfoveal. Progression has worsened. Findings include choroidal neovascular membrane, intraretinal fluid. Left Eye Quality was good. Scan locations included subfoveal. Progression has been stable. Findings include abnormal foveal contour. Notes Right eye (OD) stably resolved mild paracentral subretinal fluid Left eye (OS): stable diffuse geographic atrophy us Nazanin Theodore MD PhD OPHTH TOMOGRAPHY Fin al Result * Intravitreal Injection, Pharmacologic Agent - OD - Right Eye (06/26/2025 2:20 PM CDT) Anatomical Region Laterality Modality Head Other Narrative 06/26/2025 2:20 PM CDT Time Out Informed consent was obtained after all risks, benefits and alternatives were explained to the patient. The patient understood, agreed and wished to proceed. Timeout was completed verifying the patient, procedure, laterality and allergies. Anesthesia Subconjunctival anesthesia was used, Topical anesthesia was used. Anesthetic medications included Lidocaine 2%, Proparacaine 0.5%. The anesthesia lot number is [id number]. The expiration date is 08/09/26. The manufacture of the medication is [employer]. Intravitreal Injection, Pharmacologic Agent Preparation included 5% betadine to ocular surface, 10% betadine to eyelids. A 30 gauge needle was used. Pharmaceutical Medication: 2 mg aflibercept syringe 2 mg/0.05 mL Route: intravitreal, Site: Right Eye [facility]: 49794-933-47, Lot: [id number], Expiration date: 08/09/2026, Waste: 0 mL Medication [...] Notes Pt signed consent for BRENDAN OD 03/06/25 us Nazanin Theodore MD PhD OPHTH CLINIC PROCEDU RES Final Result * OCT, Retina - OU - Both Eyes (06/26/2025 1:25 PM CDT) Anatomical Region Laterality Modality Head Optical Coherenc e Tomography Narrative 06/26/2025 1:25 PM CDT Right Eye Quality was good. Scan locations included subfoveal. Progression has worsened. Findings include choroidal neovascular membrane, intraretinal fluid. Left Eye Quality was good. Scan locations included subfoveal. Progression has been stable. Findings include abnormal foveal contour. Notes Right eye (OD) stably resolved mild paracentral subretinal fluid Left eye (OS): stable diffuse geographic atrophy Nazanin Theodore MD PhD OPHTH TOMOGRAPHY Fin [...] 139(H) 65 - 99 mg/dL [facility] Comment: Fasting reference interval For someone without known diabetes, a glucose value >125 mg/dL indicates that they may have diabetes and this should be confirmed with a follow-up test. BUN 12 7 - 25 mg/dL [facility] Creatinine 0.92 0.60 - 0.95 mg/dL [facility] eGFR 63 > OR = 60 mL/min/1. 73m2 [facility] Comment: The eGFR is based on the CKD-EPI 2020 equation. To calculate the new eGFR from a previous Creatinine or Cystatin C result, go to https://www.kidney.org/professionals/ kdoqi/gfr%5Fcalculator BUN/creat ratio NOT APPLICABLE 6 - 22 (calc) [facility] Sodium 136 135 - 146 mmol/L [facility] Potassium, pl 4.3 3.5 - 5.3 mmol/L [facility] Chloride 105 98 - 110 mmol/L [facility] CO2 26 20 - 32 mmol/L [facility] Calcium 9.0 8.6 - 10.4 mg/dL [facility] Protein, sr 6.3 6.1 - 8.1 g/dL [facility] Albumin 3.5(L) 3.6 - 5.1 g/dL [facility] GLOBULIN 2.8 1.9 - 3.7 g/dL (calc) [facility] Alb/glob ratio 1.3 1.0 - 2.5 (calc) [facility] Bilirubin, total 1.2 0.2 - 1.2 mg/dL [facility] Alk phos 57 37 - 153 U/L [facility] AST 18 10 - 35 U/L [facility] ALT (SGPT) 15 6 - 29 U/L [facility] Blood 08/09/2022 10:4 9 AM CDT 08/09/2022 10:50 AM CDT us Donte Leonard MD LAB BLOOD ORDERABLES Final Resul t [facility] [address] [place] [address] from Last 3 Months or Most Recently Relevant to Health Maintenance Insurance MEDICARE [facility] MEDICARE [facility] MEDICARE [facility] Care Teams Claim Clerk Relationship Specialty Start Date End Date Cecilia López DO PCP - General Family Medicine 03/21/20
--- OUTSIDE RECORDS SUMMARY | 2025-09-25 12:34 | XMS_ITS | Encounter Summary ---
Author Organization [facility] Address [address] [place] [address] Phone Care Team Providers Care Wet Process Miller Head Assistant Name Role Phone Unknown, Notinfile Primary Care Provider Unavail able Stepan Stiles MD Primary Care Provider [phone] Cecilia López DO Primary Care Provider [phone]- [phone] Encounter Details Date Type Department Care Team (Late st Contact Info) Description 12/13/2017 Orders Only [facility] Provider, MD Jhony [address] [place] [address] Social History Tobacco Use Types Packs/Day Years Used Date Smoking Tobacco: Never Comments Unknown Sex and Gender Information Value Date Recorded Sex Assigned at Not on file Legal Sex Female 2:56 AM LIVESTOCK BRANDS INSPECTOR Gender Identity Not on file Sexual Orientation Not on file documented as of this encounter Plan of Treatment Not on file documented as of this encounter Procedures Procedure Name Priority Date/Time Associated Diagnosis Comments DISCHARGE LABORATORY CUMULATIVE REPORT 12/13/2017 12:00 AM LIVESTOCK BRANDS INSPECTOR documented in this encounter Results * DISCHARGE LABORATORY CUMULATIVE REPORT (12/13/2017 12:00 AM LIVESTOCK BRANDS INSPECTOR) Narrative 12/13/2017 12:00 AM LIVESTOCK BRANDS INSPECTOR Ordered by an unspecified provider. us Historical Provider LAB BLOOD ORDERABLES Eufemia l Result documented in this encounter Visit Diagnoses Not on filedocumented in this encounter Care Teams Wet Process Miller Head Assistant Relationship Specialty Start Date End Date Unknown, Notinfile PCP - General 12/13/17 01/02/18 Stepan Stiles MD [address] [place] [id number] PCP - General 01/03/18 03/20/20 Cecilia López DO [address] [place] [id number] PCP - General Family Medicine 03/21/20 documented as of this encounter
--- OUTSIDE RECORDS SUMMARY | 2025-09-25 12:34 | XMS_ITS | Encounter Summary ---
Author Organization [facility] Address [address] [place] [address] Care Team Providers Care Ob Gyn Physician Assistant Name Role Phone Cecilia López DO Primary Care Provider +1- [phone] Encounter Details Date Type Department Care Team (Latest Contact Info) Description 05/14/2008 Outpatient Historical HIS CARD PATIENT SUPPORT REPRESENTATIVE Doc Garland MD [address] [facility] [address] [place] [address] Other and Unspecified Angina Pectoris Social History Tobacco Use Types Packs/Day Years Used Date Smoking Tobacco: Never Assessed Comments Unknown Sex and Gender Information Value Date Recorded Sex Assigned at Not on file Legal Sex Female 5:36 AM SPACE AND MISSILE OPERATIONS Gender Identity Not on file Sexual Orientation Not on file documented as of this encounter Plan of Treatment Upcoming Encounters Date Type Department Care Team (Late st Contact Info) Description 11/11/2025 11:15 AM SPACE AND MISSILE OPERATIONS Office Visit [facility] Oncology and Hematology - [place] [address] [facility] [address] [place] [address] Devante Gaston MD [address] [facility] [address] [place] [address] documented as of this encounter Procedures Procedure Name Priority Date/Time Associated Diagnosis Comments CL CORONARY ANGIOGRAM Routine 05/14/2008 3:55 PM CDT documented in this encounter Results * CL CORONARY ANGIOGRAM (05/14/2008 3:55 PM CDT) Narrative INTERFACE SYSTEM - 05/14/2008 3:55 PM CDT [facility] [address] [place] [address] [email or web address] Cardiac Catheterization Comprehensive Report Patient: Didi Good Study ID: [id number] Gender: F : 1940 Age: 67 years Race: Room: Bed: Height: 66 in ( 167.6 cm ) Study Date: May 14, 2008 Patient status: Outpatient Weight: 152.9 lb ( 69.5 kg ) Access. #: [id number] POC: Attending MD: Catherine Performing MD: Catherine [...] 15:37:28 Procedure Note Provider, Historical - 05/14/2008 [address] [place] [address] [email or web address] Cardiac Catheterization Comprehensive Report Patient: Didi Good Study ID: [id number] Gender: F : 1940 Age: 67 years Race: Room: Bed: Height: 66 in ( 167.6 cm ) Study Date: May 14, 2008 Patient status: Outpatient Weight: 152.9 lb ( 69.5 kg ) Access. #: [id number] POC: Attending MD: Catherine Performing MD: Catherine [...] pectoris documented in this encounter Care Teams Ob Gyn Physician Assistant Relationship Specialty Start Date End Date Cecilia López DO [address] [place] [address] [address] [place] [address] PCP - General Family Practice 06/18/25 documented as of this encounter
--- OUTSIDE RECORDS SUMMARY | 2025-09-25 12:34 | XMS_ITS | Clinical Summary ---
Author Organization [facility] Address [address] [place] [address] Care Team Providers Care Flat Surfacer Name Role Phone KelechiitaloCecilia vance Primary Care Provider +1- [phone] Allergies No known active allergies Medications acyclovir [...] Encounters Date Type Department Care Team Description 07/31/2025 External Device Data [facility] ABSTRACTION Provider, Abstract 07/30/2025 External Device Data [facility] ABSTRACTION Provider, Abstract 07/25/2025 4:30 PM CDT Telephone Check Up [facility] Oncology and Hematology - [place] [address] [place] [address] Devante Gaston MD Chronic anemia (Primary Dx); MGUS (monoclonal gammopathy of unknown significance) 06/26/2025 External Device Data STL ABSTRACTION Provider, Abstract from Last 3 Months Family History Medical [...] on file Legal Sex Female 5:36 AM AQUATICS GROUP FITNESS INSTRUCTOR Gender Identity Not on file Sexual Orientation [...] st Contact Info) Description 11/11/2025 11:15 AM AQUATICS GROUP FITNESS INSTRUCTOR Office Visit [facility] Oncology and Hematology - [place] [address] [facility] [address] [place] [address] Devante Gaston MD [address] [facility] [address] [place] [address] Health Maintenance Due Date Last Done Comments DIABETES ANNUAL FOOT EXAM 1958 DIABETES HBA1C Q 6 MONTHS 1958 DIABETES MICROALBUMIN ANNUAL SCREEN 1958 LDL CHOLESTEROL ANNUAL 1958 DTAP/TDAP/TD VACCINES (1 - Tdap) 1959 PNEUMOCOCCAL VACCINE 50+ YEA RS (1 of 2 - PCV) 1959 07/19/2018 ZOSTER VACCINE (1 of 2) 1990 OSTEOPOROSIS SCREENING 2005 RSV VACCINE (60+ or ) (1 - 1-dose 75+ series) 2015 INFLUENZA VACCINE (#1) 2025 , 07/18/2020, 06/27/2019, Additional history exists DIABETES ANNUAL RETINAL EXAM 06/26/2026, 06/26/2025, 05/22/2025, Additional history exists Insurance MEDICARE PART A AND B [facility] Care Teams Flat Surfacer Relationship Specialty Start Date End Date Cecilia López DO [facility] [facility] [address] [place] [id number] PCP - General Family Practice 06/18/25
[2025-09-25 12:44] LABS: Hematocrit 36.9 % (37.0-47.0); Hemoglobin 12.0 g/dL (12.0-15.0); Immature Granulocyte Percent A 0.6 % (0-0.5); Lymphocytes Absolute Auto 3.94 K/mm3 (0.9-3.2); Mean Corpuscular HGB Conc 32.5 g/dl (32-36); Mean Corpuscular Hemoglobin 33.9 pg (26-34); Mean Corpuscular Volume 104.2 fl (80-100); Nucleated Red Blood Cells Absolute Auto 0.000 K/mm3 (0.0-0.012); Nucleated Red Blood Cells Perc 0.0 % (0.0-0.2); Platelet Count Result 287 k/mm3 (150-375); Red Blood Count 3.54 M/mm3 (4.2-5.4); White Blood Count 12.4 K/mm3 (4.5-10.0)
[2025-09-25 13:00] LABS: Alanine Aminotransferase 28 U/L (6-35); Albumin Level 3.7 g/dL (3.5-5.1); Alkaline Phosphatase 84 U/L (38-126); Anion Gap 7 mmol/L (4-12); Aspartate Amino Transferase 46 U/L (14-36); Bilirubin,Total 0.7 mg/dL (0.2-1.3); Blood Urea Nitrogen 25 mg/dL (7-17); Calcium 9.1 mg/dL (8.4-10.2); Carbon Dioxide 27 mmol/L (22-30); Chloride 98 mmol/L (98-107); Estimated CRCL calculation 33 ml/min; Estimated Glomerular Filt Rate 57; Glucose 283 mg/dL (65-110); Potassium 4.7 mmol/L (3.4-5.0); Sodium 132 mmol/L (137-145); Total Protein 7.5 g/dL (6.3-8.2)
--- NOTE | 2025-09-25 13:07 | PC.NURSE ---
ED respiratory en route to room with inhaler.
[2025-09-25] MEDS: ALBUTEROL SULFATE (*SP) AEROSOL 1 PUFF 2 PUFF INHALATION (13:12)
[2025-09-25 13:17] LABS: Influenza A QL RT-PCR Negative (Negative); Influenza B QL RT-PCR Negative (Negative); RSV RNA, RT-PCR Negative (Negative); SARS-CoV-2 RNA PCR Negative (Negative)
[2025-09-25 14:00] VITALS: BP 137/92; PULSE 85; RESP 16; TEMP 37.1; O2SAT 97
--- OUTSIDE RECORDS SUMMARY | 2025-09-25 14:15 | XMS_ITS | Clinical Summary ---
Author Organization [facility] Address [address] [place] [address] Care Team Providers Care Eap Counselor Name Role Phone KelechiitaloCecilia vance Primary Care Provider +1- [phone] Allergies No known active allergies Medications calcium carbonate-vitami n D3 1500 mg (600 mg elemental) -200 units per tablet Take 1 tablet by mouth daily Active omega 4-yku-yfb-fish oil 100-160-1,000 mg capsule Take 1 capsule [...] times a day with meals Active vit C,U-Ba-zuahh-lut ein-zeaxan 250-90-40-1 mg capsule Take 1 capsule [...] PM CDT): Scar reducing w/ central clearing GAS WELDER 20/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 06/23/2021 Overview (06/23/2021): Added automatically from request for surgery [id number] Advanced nonexudative age-re lated macular degeneration of [...] PRN Assessment & Plan (11/14/2020 9:01 AM BROADCAST METEOROLOGIST): OD Hx of superior edema - improved [...] -monitor Assessment & Plan (10/17/2018 11:51 AM BROADCAST METEOROLOGIST): Measured today -monitor Assessment & Plan (06/06/2018 [...] 07/18/201802/16 Assessment & Plan (10/17/2018 11:50 AM BROADCAST METEOROLOGIST): -stable vision -continue preservative free dexamethasone once daily No intraocular inflammation or concern for rejection although fine vessels seen towards interface superior nasally -monitor with repeat exam in 3-6 months. 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 06/06/201802/16 Assessment & Plan (10/17/2018 11:50 AM BROADCAST METEOROLOGIST): MCE superiorly, measured today -stable vision -continue [...] Department Care Team Description 09/03/2025 11:30 AM BROADCAST METEOROLOGIST Office Visit [facility] Medicine Ophthalmology [address] [place] [address] [address] Nazanin Theodore MD PhD Exudative age-related macular degeneration of right eye with active choroidal neovascularization (HCC) (Primary Dx) 07/31/2025 1:30 PM CDT Office Visit [facility] Ophthalmology [address] [place] [address] Nazanin Theodore MD PhD Exudative age-related macular degeneration of right eye with active choroidal neovascularization (HCC) (Primary Dx); 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 07/23/2025 Telephone [facility] Medicine Ophthalmology [address] [place] [address] Nazanin Theodore MD PhD New symptoms 06/26/2025 2:00 PM CDT Office Visit [facility] Medicine Ophthalmology [address] [place] [phone] Nazanin Theodore MD PhD Exudative age-related macular [...] 07/19/2018,07/19/2018 Surgical History Surgery Date Site/Laterality Comments CT COLONOSCOPY FLX DX W/COLLJ SPEC WHEN PFRMD Complete Colonoscopy - (Added by Conv) CT EXC CYST/ABERRANT BREAST TISSUE OPEN 1/> LESION [...] artery disease) Frequent urination at night Diarrhea [place]AY OWINGEH (hard of hearing) Family History Medical History [...] on file Legal Sex Female 2:56 AM BROADCAST METEOROLOGIST Gender Identity Not on file Sexual Orientation Not on file Obstetrics History Para Term AB IAB SAB Ectopic Multiple Livin g Live Births 3 3 3 3 Date Outcome GA Total Labor Labor/3rd Weight Sex Type Anes PTL Fadumo A1 A5 Name Clin Term Term Term Last Filed Vital Signs Vital Sign Reading Time Taken Comments Blood Pressure 136/62 12/05/2024 12:56 PM BROADCAST METEOROLOGIST Pulse 59 12/05/2024 12:56 PM BROADCAST METEOROLOGIST Temperature 36.9 C (98.5 F) 02/16/2023 2:03 PM CDT Respiratory Rate 16 02/16/2023 2:03 PM CDT Oxygen Saturation 99% 12/05/2024 12: 56 PM BROADCAST METEOROLOGIST Inhaled Oxygen Concentration - - Weight 55.7 kg (122 lb 12.8 oz) 025 12:56 PM BROADCAST METEOROLOGIST Height 162.6 cm (5' 4) 12/05/2024 12:5 6 PM BROADCAST METEOROLOGIST Body Mass Index 21.08 12/05/2024 12:56 PM BROADCAST METEOROLOGIST Plan of Treatment Health Maintenance Due Date [...] history exists Medical Devices Implanted Type Area Machine Mover Device Identifier Shelf Expiration Date Model / Serial / Lot Shockwave Medical [id number] Catheter 3.5x12 Mm Shockwave C2 Ivl - [id number] Implanted:Qty: 1 on 07/03/2021 [facility] 01/07/2023 [id number] / / [place] [employer] [id number] Synergy 3.5mm 24mm 144cm Radiopaque 1 Access Port Inflation Lumen - [id number] Implanted:Qty: 1 on 07/03/2021 by Donte Leonard MD at [employer] 01/15/2023 [id number] / / [employer] Mynx Control 6-7fr 2 Mode Balloon Catheter Sealant Lock Syringe [id number] - [id number] Implanted:Qty: 1 on 08/12/2022 by Donte Leonard MD at [employer] 06/09/2024 [id number] / / [id number] Procedures Procedure Name Priority Date/Time Associated Diagnosis Comments INTRAVITREAL INJECTION, PHARMACOLOGIC AGENT - OD - RIGHT EYE Routine 09/03/2025 1:34 PM BROADCAST METEOROLOGIST Exudative age-related macular degeneration of right eye with active choroidal neovascularization (HCC) OCT, RETINA - OU - BOTH EYES Routine 09/03/2025 1:17 PM BROADCAST METEOROLOGIST Exudative age-related macular degeneration of right eye [...] 10:49 AM CDT 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 The patient understood, agreed and wished to proceed. Timeout was completed verifying the patient, procedure, laterality and allergies. Anesthesia Subconjunctival anesthesia was used, Topical anesthesia was used. Anesthetic medications included Lidocaine 2%, Proparacaine 0.5%. The anesthesia lot number is [id number]. The expiration date is 08/09/2026. The manufacture of the medication is [employer]. Intravitreal Injection, Pharmacologic Agent Preparation included 5% betadine to ocular surface. A 30 gauge needle was used. Pharmaceutical Medication: 2 mg aflibercept syringe 2 mg/0.05 mL Route: intravitreal, Site: Right Eye ND: 21617-800-24, Lot: [id number], Expiration date: 10/08/2026, Waste: 0 mL Medication [...] Notes Consent signed for BRENDAN OD 03/06/2025 Nazanin Theodore MD PhD OPHTH CLINIC PROCEDU RES Final Result * OCT, Retina - OU - Both Eyes (09/03/2025 1:17 PM BROADCAST METEOROLOGIST) Anatomical Region Laterality Modality Head Optical Coherenc e Tomography Narrative 09/03/2025 1:17 PM BROADCAST METEOROLOGIST Right Eye Quality was good. Scan locations [...] Proparacaine 0.5%. The anesthesia lot number is [id number]. The expiration date is 08/09/26. The manufacture of the medication is [employer] [place]. Intravitreal Injection, Pharmacologic Agent Preparation included 5% betadine to ocular surface, 10% betadine to eyelids. A 30 gauge needle was used. Pharmaceutical Medication: 2 mg aflibercept syringe 2 mg/0.05 mL Route: intravitreal, Site: Right Eye [facility]: 30635-087-36, Lot: [id number], Expiration date: 08/09/2026, Waste: 0 mL Medication [...] consent for BRENDAN OD 03/06/25 Result Yanira Theodore MD PhD OPHTH CLINIC PROCEDU RES [...] Proparacaine 0.5%. The anesthesia lot number is [id number]. The expiration date is 08/09/26. The manufacture of the medication is [employer]. Intravitreal Injection, Pharmacologic Agent Preparation included 5% betadine to ocular surface, 10% betadine to eyelids. A 30 gauge needle was used. Pharmaceutical Medication: 2 mg aflibercept syringe 2 mg/0.05 mL Route: intravitreal, Site: Right Eye [facility]: 09483-886-80, Lot: [id number], Expiration date: 08/09/2026, Waste: 0 mL Medication [...] 139(H) 65 - 99 mg/dL [facility] Comment: Fasting reference interval For someone without known diabetes, a glucose value >125 mg/dL indicates that they may have diabetes and this should be confirmed with a follow-up test. BUN 12 7 - 25 mg/dL [facility] Creatinine 0.92 0.60 - 0.95 mg/dL [facility] eGFR 63 > OR = 60 mL/min/1. 73m2 [facility] Comment: The eGFR is based on the CKD-EPI 2020 equation. To calculate the new eGFR from a previous Creatinine or Cystatin C result, go to https://www.kidney.org/professionals/ kdoqi/gfr%5Fcalculator BUN/creat ratio NOT APPLICABLE 6 - 22 (calc) [facility] Sodium 136 135 - 146 mmol/L [facility] Potassium, pl 4.3 3.5 - 5.3 mmol/L [facility] Chloride 105 98 - 110 mmol/L [facility] CO2 26 20 - 32 mmol/L [facility] Calcium 9.0 8.6 - 10.4 mg/dL [facility] Protein, sr 6.3 6.1 - 8.1 g/dL [facility] Albumin 3.5(L) 3.6 - 5.1 g/dL [facility] GLOBULIN 2.8 1.9 - 3.7 g/dL (calc) [facility] Alb/glob ratio 1.3 1.0 - 2.5 (calc) [facility] Bilirubin, total 1.2 0.2 - 1.2 mg/dL [facility] Alk phos 57 37 - 153 U/L [facility] AST 18 10 - 35 U/L [facility] ALT (SGPT) 15 6 - 29 U/L [facility] Blood 08/09/2022 10:4 9 AM CDT 08/09/2022 10:50 AM CDT us Donte Leonard MD LAB BLOOD ORDERABLES Final Resul t [facility] [address] [place] [address] from Last 3 Months or Most Recently Relevant to Health Maintenance Insurance MEDICARE [facility] [place] [facility] MEDICARE [facility] [place] [facility] MEDICARE [facility] Care Teams Eap Counselor Relationship Specialty Start Date End Date Cecilia López DO PCP - General Family Medicine 03/21/20
--- OUTSIDE RECORDS SUMMARY | 2025-09-25 14:15 | XMS_ITS | Encounter Summary ---
Author Organization [facility] Address [address] [place] [address] Phone Care Team Providers Care Direct Support Staff Name Role Phone Unknown, Notinfile Primary Care Provider Unavail able Stepan Stiles MD Primary Care Provider [phone] Cecilia López DO Primary Care Provider +1- [phone] Encounter Details Date Type Department Care Team (Late st Contact Info) Description 12/13/2017 Orders Only [facility] Provider, MD Jhony [address] [place] [address] Social History Tobacco Use Types Packs/Day Years Used Date Smoking Tobacco: Never Comments Unknown Sex and Gender Information Value Date Recorded Sex Assigned at Not on file Legal Sex Female 2:56 AM ELASTIC YARN TWISTER HELPER Gender Identity Not on file Sexual Orientation Not on file documented as of this encounter Plan of Treatment Not on file documented as of this encounter Procedures Procedure Name Priority Date/Time Associated Diagnosis Comments DISCHARGE LABORATORY CUMULATIVE REPORT 12/13/2017 12:00 AM ELASTIC YARN TWISTER HELPER documented in this encounter Results * DISCHARGE LABORATORY CUMULATIVE REPORT (12/13/2017 12:00 AM ELASTIC YARN TWISTER HELPER) Narrative 12/13/2017 12:00 AM ELASTIC YARN TWISTER HELPER Ordered by an unspecified provider. us Historical Provider LAB BLOOD ORDERABLES Eufemia l Result documented in this encounter Visit Diagnoses Not on filedocumented in this encounter Care Teams Direct Support Staff Relationship Specialty Start Date End Date Unknown, Notinfile PCP - General 12/13/17 01/02/18 Stepan Stiles MD [address] [place] [id number] PCP - General 01/03/18 03/20/20 Cecilia López DO [address] [place] [address] PCP - General Family Medicine 03/21/20 documented as of this encounter
--- OUTSIDE RECORDS SUMMARY | 2025-09-25 14:15 | XMS_ITS ---
Author Organization [facility] Address [address] [place] [address] Care Team Providers Care Gathering Machine Setter Name Role Phone Cecilia López DO Primary Care Provider [phone]- [phone] Active Problems Problem Noted Date Diagnosed Date 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 Theodore Keratitis, herpetic OD 02/03/2023 Assessment & Plan (07/05/2023 2:41 PM CDT): Scar reducing w/ central clearing ENERGY SALES BROKER 20/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 Stock 6-8mos Assessment [...] as needed Coronary artery disease invo lving lower brule coronary artery of [place] heart 06/23/2021 Overview (06/23/2021): Added automatically from request for surgery [id number] Advanced nonexudative age-re lated macular degeneration of [...] PRN Assessment & Plan (11/14/2020 9:01 AM STAGE SET DESIGNER): OD Hx of superior edema - improved [...] -monitor Assessment & Plan (10/17/2018 11:51 AM STAGE SET DESIGNER): Measured today -monitor Assessment & Plan (06/06/2018 [...] 07/18/201802/16 Assessment & Plan (10/17/2018 11:50 AM STAGE SET DESIGNER): -stable vision -continue preservative free dexamethasone once daily No intraocular inflammation or concern for rejection although fine vessels seen towards interface superior nasally -monitor with repeat exam in 3-6 months. 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
--- OUTSIDE RECORDS SUMMARY | 2025-09-25 14:16 | XMS_ITS | Clinical Summary ---
Author Organization [facility] Filippo Oneil Address [address] [place] [address] Care Team Providers Care Emissions Testing And Repair Technician Name Role Phone KelechiitaloCecilia vance Primary Care Provider +1- [phone] Allergies No known active allergies Medications acyclovir [...] 07/25/2025 4:30 PM CDT Telephone Check Up [facility] Oncology and Hematology - [place] [address] [place] [phone] Devante Gaston MD Chronic anemia (Primary [...] on file Legal Sex Female 5:36 AM TAX COLLECTION COORDINATOR Gender Identity Not on file Sexual Orientation [...] st Contact Info) Description 11/11/2025 11:15 AM TAX COLLECTION COORDINATOR Office Visit [facility] Oncology and H[facility]ology - [place] [address] [facility] [address] [place] [address] Devante Gaston MD [address] [facility] [address] [place] [address] Health Maintenance Due Date Last [...] exists Insurance MEDICARE PART A AND B [facility] Care Teams Emissions Testing And Repair Technician Relationship Specialty Start Date End Date Cecilia López DO [facility] [facility] [address] [place] [phone] PCP - General Family Practice 06/18/25
--- OUTSIDE RECORDS SUMMARY | 2025-09-25 14:16 | XMS_ITS | Encounter Summary ---
Author Organization [facility] Address [address] [place] [address] Care Team Providers Care Online Marketing Manager Name Role Phone Cecilia López DO Primary Care Provider +1- [phone] Encounter Details Date Type Department Care Team (Latest Contact Info) Description 05/14/2008 Outpatient Historical HIS CARD PICKLE PUMPER Doc Garland MD [address] [facility] [address] [place] [address] Other and Unspecified Angina Pectoris Social History Tobacco Use Types Packs/Day Years Used Date Smoking Tobacco: Never Assessed Comments Unknown Sex and Gender Information Value Date Recorded Sex Assigned at Not on file Legal Sex Female 5:36 AM COMMUNICATION STUDIES PROFESSOR Gender Identity Not on file Sexual Orientation Not on file documented as of this encounter Plan of Treatment Upcoming Encounters Date Type Department Care Team (Late st Contact Info) Description 11/11/2025 11:15 AM COMMUNICATION STUDIES PROFESSOR Office Visit [facility] Oncology and Hematology - [place] [address] [facility] [address] [place] [address] Devante Gaston MD [address] [facility] [address] [place] [address] documented as of this encounter Procedures Procedure Name Priority Date/Time Associated Diagnosis Comments CL CORONARY ANGIOGRAM Routine 05/14/2008 3:55 PM CDT documented in this encounter Results * CL CORONARY ANGIOGRAM (05/14/2008 3:55 PM CDT) Narrative INTERFACE SYSTEM - 05/14/2008 3:55 PM CDT [facility] [address] [place] [address] [email or web address] Cardiac Catheterization Comprehensive Report Patient: Didi Good Study ID: [id number] Gender: F : 1940 Age: 67 years Race: Room: Bed: Height: 66 in ( 167.6 cm ) Study Date: May 14, 2008 Patient status: Outpatient Weight: 152.9 lb ( 69.5 kg ) Access. #: [id number] POC: Attending MD: Catherine Performing MD: Catherine [...] 15:37:28 Procedure Note Provider, Historical - 05/14/2008 [address] [address] [place] [address] [email or web address] Cardiac Catheterization Comprehensive Report Patient: Didi Good Study ID: [id number] Gender: F : 1940 Age: 67 years Race: Room: Bed: Height: 66 in ( 167.6 cm ) Study Date: May 14, 2008 Patient status: Outpatient Weight: 152.9 lb ( 69.5 kg ) Access. #: [id number] POC: Attending MD: Catherine Performing MD: Catherine [...] pectoris documented in this encounter Care Teams Online Marketing Manager Relationship Specialty Start Date End Date Cecilia López DO [address] [place] [address] [address] [place] [address] PCP - General Family Practice 06/18/25 documented as of this encounter
== END 2025-09-25 14:19 | disposition home or self-care (01) ==
PROVIDERS: Emergency Provider Student in an Organized Health Care Education/Training Program; PCP Family Medicine
DX: J40 Bronchitis, not specified as acute or chronic (principal); R05.2 Subacute cough; Z20.822 Contact with and (suspected) exposure to COVID-19; I10 Essential (primary) hypertension; E11.39 Type 2 diabetes mellitus with other diabetic ophthalmic complication; H42 Glaucoma in diseases classified elsewhere; E78.2 Mixed hyperlipidemia; M81.0 Age-related osteoporosis without current pathological fracture; M19.90 Unspecified osteoarthritis, unspecified site; Z94.7 Corneal transplant status; Z85.42 Personal history of malignant neoplasm of other parts of uterus; Z85.44 Personal history of malignant neoplasm of other female genital organs; Z90.710 Acquired absence of both cervix and uterus; Z79.4 Long term (current) use of insulin; Z79.899 Other long term (current) drug therapy; Z79.02 Long term (current) use of antithrombotics/antiplatelets; Z79.84 Long term (current) use of oral hypoglycemic drugs
CPT/HCPCS: 36415; 71046; 80053; 85025; 87637; 94664; 99283; A9270